=== PATIENT | male | born 1950 | race Caucasian/White ===

== ENCOUNTER 2019-06-17 15:35 | Inpatient (IN) | payer MEDICARE, SELFPAY ==
[2019-06-17] VITALS (20 sets, daily range): BP systolic 78–182; BP diastolic 59–122; PULSE 34–120; RESP 10–20; TEMP 36.6–37; O2SAT 95–100; BMI 22.4; BMI 24.7; BMI 24.6
[2019-06-17] MEDS: Morphine 4 MG/ML Syringe IV (15:44)
[2019-06-17] MEDS: TICAGRELOR 90 MG TABLET 180 MG PO (15:44)
[2019-06-17] MEDS: Heparin 10,000 UNITS/10 ML Vial 4000 UNITS IV (15:44)
[2019-06-17] MEDS: Ondansetron 4 MG/2 ML Vial IV (15:46)
--- NOTE | 2019-06-17 15:46 | RAD_ITS ---
STUDY: X-RAY CHEST REASON FOR EXAM: Male, 69 years old. Stemi TECHNIQUE: Single AP portable view of the chest. COMPARISON: None. FINDINGS: The lungs are clear and expanded. There is no demonstrated pleural abnormality. There is mild cardiac enlargement. Normal mediastinum and damian. Normal visualized pulmonary arteries. Normal visualized aortic arch and descending thoracic aorta. There are diffuse degenerative changes of the visualized thoracic spine. Normal visualized ribs, clavicles, and shoulders. There is no demonstrated abnormality of the visualized soft tissue structures of the upper abdomen. RAD/Chest 1 View (Portable) IMPRESSION: Degenerative changes, as described above. No demonstrated acute cardiopulmonary process. Electronically Signed: Trista Ozuna MD at 16:21 EDT Tel , Service support ,
--- NOTE | 2019-06-17 15:55 | ED.DCSUM_ITS ---
- ER Visit Summary Date of Service: 06/17/19 Chief Complaint: Chest pain History of Present Illness: The patient is a 69 M who presents with chest pain that began today after working out. Patient describes the pain is tightness over the substernal area. Patient admits to some nausea but denies any vomitin g. Patient admits to some shortness of breath and diaphoresis with the pain. Patient thought he was having esophageal spasm and called EMS. Patient has an allergic reaction to aspirin where he goes into shock. EMS did a twelve-lead EKG which showed a posterior infarct. Physical Examination: Vital signs were stable except for bradycardia of 45. Patient is afebrile. Patient is clammy and diaphoretic on examination. Heart was regular and bradycardic. Lungs are clear and equal bilaterally. Abdomen is soft and nontender. Cranial nerves II through XII are intact. There are no focal motor or sensory deficits noted. Oral mucosa is pink and moist. Neck is supple. Trachea is midline. There is no JVD. Test Results: EKG showed sinus bradycardia. There is ST depression in leads V1 through V5. There is tall R wave in V2. This is consistent with posterior infarct. Portable chest x-ray was obtained. There is no acute cardiopulmonary process. Emergency Department Course and Treatment: Case was discussed with Dr. Cr, commercial helicopter pilot on-call. He will begin to take patient to the Client Service Associate. Patient was given heparin 4000 units IV. Patient was given Brilinta 180 mg p.o. Patient was given morphine and Zofran here. Patient was not given aspirin due to his allergy. Dr. Lawton was also in with the patient and will accompany the patient to the Client Service Associate. She will admit the patient to her service. Disposition: Admit to Client Service Associate Impression: Acute STEMI This note was generated with [employer] dictation software. It may contain incorrect words, spelling, and punctuation that were not noted in review of the chart prior to signing ED Disposition - Plan for ED Patient: Disposition: Acute Care Hospital [facility] Diagnosis: Acute ST elevation myocardial infarction (STEMI) of posterior wall Referrals: Care Physician,No Primary [Primary Care Provider] -
--- NOTE | 2019-06-17 15:57 | EKG12_ITS ---
Test Reason : CP Blood Pressure : / mmHG Vent. Rate : 043 BPM Atrial Rate : 043 BPM P-R Int : 224 ms QRS Dur : 092 ms QT Int : 448 ms P-R-T Axes : 042 013 072 degrees QTc Int : 378 ms Marked sinus bradycardia with 1st degree A-V block Posterior infarct , possibly acute ACUTE [place] / STEMI Abnormal ECG Confirmed by NANCY CR ([id number]), video editor FELIX KENNEDY ([id number]) on 07/03/2019 2:30:12 PM Referred By: Nancy Cr Confirmed By:NANCY CR
--- NOTE | 2019-06-17 16:10 | CM.ED ---
Social Work Consult: Stemi Alert Met with patient ex-, Sharon in [place]. Sharon noted to be on patient chart. Sharon stating to still be friends with patient and to see each other regularly. Sharon stating to have 4 sons with patient. Support provided to Sharon while in the ED. This social media job titles then walking with Sharon to laborer aquatic life waiting room. Sharon stating to have gotten in contact with all needed family and that family is in route to the hospital at this time. Support provided. Yesica CONTI, CHRISTA
[2019-06-17 16:17] LABS: Absolute Lymphocyte Count 4.18 X10^3/uL (0.83-4.51); Absolute Neutrophil Count 5.2 X10^3/uL (2.0-7.7); Basophil# 0.08 X10^3/uL; Basophil% 0.7 % (0-1); Eosinophil# 0.45 X10^3/uL; Eosinophils% 4.2 % (0-5); Hematocrit 39.4 % (40-54); Hemoglobin 13.6 g/dL (13.0-16.5); Lymphocyte # 4.18 X10^3/ul (4.0); Lymphocyte % 38.9 % (19-41); Mean Corp Hgb Conc 34.5 g/dL (32-36); Mean Corpuscular Hgb 31.6 pg (27.0-32.0); Mean Corpuscular Volume 91.4 fL (80-94); Mean Platelet Vol. 9.1 fl (6.2-12.0); Monocyte# 0.78 X10^3/uL; Monocyte% 7.3 % (0-10); NRBC Flagged by Analyzer 0 % (0-5); Neutrophil # 5.22 X10^3/uL (2.7-7.7); Neutrophil % 48.5 % (47-70); Platelet Count 292 K/mm3 (150-450); RBC Distribution Width SD 40.3 fl (35.1-43.9); Red Blood Count 4.31 M/mm3 (4.6-6.2); White Blood Count 10.8 K/mm3 (4.4-11.0)
[2019-06-17 16:22] LABS: Partial Thromboplast Time 26.5 Seconds (24.1-36.2)
[2019-06-17 16:32] LABS: Anion Gap 8 (5-15); BUN 21 mg/dL (7-18); BUN/Creat Ratio 14.5 RATIO (10-20); Calcium,Total 9.6 mg/dL (8.5-10.1); Chloride 106 mmol/L (98-107); Creatinine, Serum 1.45 mg/dL (0.70-1.30); EST Glomerular Filtration Rate 52 mL/min (>60); Est Glom Filt Rate - Afr Amer 62 mL/min (>60); Estimated Creatinine Clearance 53.92 ml/min; Glucose 134 mg/dL (74-106); Potassium 3.5 mmol/L (3.5-5.1); Sodium Level 140 mmol/L (136-145)
--- NOTE | 2019-06-17 16:34 | PCM.HP.STD ---
Problem List (1) Asthma Status: Chronic (2) Anxiety and depression Status: Chronic (3) HTN (hypertension) Status: Chronic (4) HLD (hyperlipidemia) Status: Chronic (5) Former smoker, stopped smoking in distant past Status: Chronic Comment: quit 1998 (6) Family history of ASCVD Status: Chronic Comment: father had bypass surgery at 72 YOA (7) Chronic renal failure, stage 3 (moderate) Status: Chronic (8) Hyperglycemia Status: Acute (9) Erectile dysfunction Status: Chronic History of Present Illness Date of Admission: 06/17/19 Chief Complaint: chest tightness The patient is a 69 year old M with a past medical history of hypertension, hyperlipidemia (on no medication), asthma, anxiety/depression and former smoking hx who presented to the ED at [facility] on 06/17/19 by squad c/o anterior chest tightness, shortness of breath, lightheadedness, nausea and numbness in his left hand. He works out regularly and had no pain with his workout today but the pain started after his w/o. EKG done in the squad showed deep ST depression with T wave inversions in the anterior leads. Code STEMI was called and he was given 180 mg of Brilinta and 4,000 units of intravenous heparin. Initial vital signs in the emergency department were blood pressure 126/86, respiratory rate 14, 100% saturation on a nasal cannula and a pulse rate of 45. A repeat EKG showed bradycardia with persistent ST depression and T wave inversions in the anterior leads. The HR dropped to the low 30's and the BP dropped to 70's systolic. Fluid boluses were started in 2 IV's and the external PM was applied and the rate was set at 50 with good capture. He received 4 mg of MS and nausea worsened and he received a total of 8 mg of Zofran. In the past he has had a anaphylactic reaction to Motrin and was told never to take aspirin. BP came up into the normal range with pacing and fluid boluses. He was transported to the labor crew supervisor and Dr. Cr will be performing a cardiac cath. Past Medical History Past Medical History (Chronic Problems): Chronic Problems Asthma (Chronic) Anxiety and depression (Chronic) HTN (hypertension) (Chronic) HLD (hyperlipidemia) (Chronic) Former smoker, stopped smoking in distant past (Chronic) quit 1998 Family history of ASCVD (Chronic) father had bypass surgery at 72 YOA Chronic renal failure, stage 3 (moderate) (Chronic) Erectile dysfunction (Chronic) Allergies aspirin Allergy (Verified 06/17/19 15:43) Anaphylaxis Sulfa (Sulfonamide Antibiotics) Allergy (Verified 06/17/19 15:43) Rash Surgical History: no surgical history Psychiatric History: Anxiety, Depression Lives: Alone Smoking Status: Former smoker - quit in 1998 Tobacco Use: Non-smoker Alcohol: Rare Drugs: None - *Family History Paternal History Items: Heart Disease - father had bypass surgery at 72 YOA, Hypertension Maternal History Items: Hypertension, - - mother has had carotid bypass surgery Review of Systems Constitutional: Denies: Chills, Fever, Weight Change HEENT: Denies: Head Aches, Sinus Congestion, Sinus Drainage Cardiovascular: Reports: Chest Pain, Chest Tightness, Light Headedness. Denies: Palpitations, Syncope Respiratory: Reports: Shortness of Breath, Shortness of breath upon exertion. Denies: Cough, Shortness of breath at rest, Sputum production Gastrointestinal: Reports: Nausea. Denies: Abdominal Pain, Vomiting Genitourinary: Denies: Dysuria Musculoskeletal: Reports: - - numbness in the left hand. Denies: Joint Pain, Joint Tenderness Skin: Denies: Rash, Wounds Neurological: Denies: Numbness, Tingling, Focal weakness Psychiatric: Denies: Anxiety, Depression, Homicidal Ideations, Suicidal Ideations Endocrine: Denies: Change in Body Habitus Hematologic/ Lymphatic: Denies: Easy Bruising, Easy Bleeding, Hx of blood clot VTE Information - Inpt Only VTE Present on Admission: No VTE Mechan Device Prophylaxis: SCD's, Knee High LIZ Hose VTE Pharm Prophylaxis ordered?: No Patient Problems: Active and Suspected Problems Acute ST elevation myocardial infarction (STEMI) of posterior wall (Acute) Hyperglycemia (Acute) - Physical Exam General: Alert, Oriented x3, Cooperative, - - looks to be in severe pain and the color of the skin is grayish HEENT: Atraumatic, PERRLA, EOMI, Normocephalic Neck: Supple, No JVD, Negative Carotid Bruits, No Nodes, No Nuchal Rigidity, Trachea Midline Lungs: Clear to auscultation - anterior and lateral, Normal air movement Cardiovascular: Normal S1, Normal S2, No murmurs, Bradycardic, No rub noted, No Gallop, - - some junctional beats and occasional PAC Abdomen: Bowel Sounds Present, Soft, Non Tender Extremities: No clubbing, No cyanosis, No edema, Diminished Peripheral Pulses - in the feet...and the feet are a little cool. The femoral pulses are 3/3 BL with no bruits and the radial pulses are 3/3 Skin: No rashes, No breakdown Musculoskeletal: No Tenderness to Palpation of Joints or Extremities, No Muscle Wasting Neurological: Cranial nerves II-XII grossly intact, Neuro grossly intact Psych/Mental Status: Appropriate, Restless - in pain and afraid Vital Signs Temp Pulse Resp BP Pulse Ox 98 F 45 L 14 111/73 100 06/17/19 15:46 06/17/19 15:46 06/17/19 15:46 06/17/19 15:46 06/17/19 15:46 Weight: 170 lb Body Mass Index (BMI) 22.4 Laboratory Tests Past 24 Hrs 06/17/19 06/17/19 06/17/19 15:40 15:40 15:40 WBC 10.8 RBC 4.31 L Hgb 13.6 Hct 39.4 L MCV 91.4 MCH 31.6 MCHC 34.5 RDW Std Deviation 40.3 RDW Coeff of Larry 12.0 Plt Count 292 MPV 9.1 Immature Gran % (Auto) 0.400 Neut % (Auto) 48.5 Lymph % (Auto) 38.9 [place] % (Auto) 7.3 Eos % (Auto) 4.2 Baso % (Auto) 0.7 Absolute Neuts (auto) 5.2 Absolute Lymphs (auto) 4.18 Nucleated RBC % 0 PT 13.0 INR 1.0 APTT 26.5 Sodium 140 Potassium 3.5 Chloride 106 Carbon Dioxide 26.0 Anion Gap 8 BUN 21 H Creatinine 1.45 H Estim Creat Clear Calc 53.92 Est GFR (MDRD) Af Amer 62 Est GFR (MDRD) Non-Af 52 L BUN/Creatinine Ratio 14.5 Glucose 134 H Calcium 9.6 Troponin I < 0.015 Assessment/Plan All Active Problems Acute ST elevation myocardial infarction (STEMI) of posterior wall (Acute) Hyperglycemia (Acute) Impressions 1. STEMI - posterior wall 2. Hypertension-on losartan 3. Hyperlipidemia-has been on pravastatin in November 2018 but apparently this was discontinued 4. Asthma 5. Anxiety/depression 6. Erectile dysfunction-takes sialoliths as needed 7. Family history of cardiovascular disease with bypass surgery in his father at age 72 and carotid bypass surgery in his mother 8. Chronic renal failure stage III - Creat 1.4 in 2017 and 1.45 today 9. Hyperglycemia - no personal or FH of DM II - more likely than not stress related Taken for cath with Dr. Cr Code Visit Inpatient E&M: 45814 Init Hosp L3
--- NOTE | 2019-06-17 17:04 | ED.RN ---
While in ED pt was paced at a rate of 50 with a current of 40. Pt tolerated well.
--- NOTE | 2019-06-17 17:41 | ECHOD_ITS ---
Reason For Study: CAD/ASHD Procedure This was a 2D Doppler, Color Flow transthoracic echocardiogram. Exam performed portable in ICU/CCU. Left Ventricle Normal size and thickness. The estimated ejection fraction is 55 %. Stage 1 diastolic dysfunction. Inferior Dawes : Mildly hypokinetic. Right Ventricle Mildly dilated right ventricle. Normal systolic function. Atria Normal left atrium. Normal right atrium. Normal atrial septum. Mitral Valve The mitral valve is structurally normal. No prolapse or stenosis seen. Tricuspid Valve Normal tricuspid valve. Unable to estimate RV systolic pressure due to inadequate jet, pulmonary artery pressure probably normal. Aortic Valve Normal aortic valve. Trisinus/trileaflet aortic valve. Pulmonic Valve Normal pulmonic valve. Great Vessels Normal aortic root. Normal arch. Normal inferior vena cava. Inferior vena cava collapse with sniff. Pericardium/Pleural No pericardial effusion. MMode/2D Measurements & Calculations LVIDd: 5.0 cm IVSd: 0.91 cm LAV(MOD-bp): 66.3 ml LVIDs: 3.3 cm LVPWd: 1.0 cm LAV(MOD-bp) Indexed: 32.7 ml/m2 RVDd: 3.8 cm FS: 33.6 % LAV(MOD-sp2): 61.1 ml LAV(MOD-sp4): 63.9 ml SV(MOD-sp4): 57.9 ml SV(sp4-el): 61.2 ml LVAd ap4: 33.1 cm2 EDV(MOD-sp4): 96.0 ml EDV(sp4-el): 100.1 ml LVAs ap4: 18.2 cm2 ESV(MOD-sp4): 38.1 ml ESV(sp4-el): 38.9 ml EF(MOD-sp4): 60.4 % EF(sp4-el): 61.2 % LA A4 area: 18.7 cm2 RA A4 area: 14.6 cm2 Time Measurements MV dec time: 0.26 sec Doppler Measurements & Calculations MV E max ronal: 80.0 cm/sec Lat Peak E' Ronal: 9.6 cm/sec Med Peak E' Ronal: 8.6 cm/sec MV A max ronal: 82.3 cm/sec E/E' lat: 8.4 E/E' med: 9.3 MV E/A: 0.97 MV V2 max: 102.1 cm/sec MV P1/2t max ronal: 93.4 cm/sec Ao V2 max: 126.2 cm/sec MV max P.2 mmHg MV P1/2t: 77.9 msec Ao max P.4 mmHg MV V2 mean: 54.6 cm/sec MV dec slope: 351.3 cm/sec2 Ao V2 mean: 78.3 cm/sec MV mean P.4 mmHg MVA(P1/2t): 2.8 cm2 Ao mean P.9 mmHg MV V2 VTI: 30.9 cm Ao V2 VTI: 22.0 cm LV V1 max: 108.0 cm/sec PA V2 max: 66.3 cm/sec LV V1 max P.7 mmHg LV V1 mean P.0 mmHg LV V1 mean: 64.0 cm/sec LV V1 VTI: 21.5 cm Interpretation Summary The estimated ejection fraction is 55 %. Stage 1 diastolic dysfunction. Inferior Dawes : Mildly hypokinetic Unable to estimate RV systolic pressure due to inadequate jet, pulmonary artery pressure probably normal. There is no comparison study available. Ordering Physician: Karri Cr Referring Physician: TRAV ANTHONY Performed By: Jesus Christianson RCS
[2019-06-17 17:55] LABS: ACT Activated Clotting Time 153 sec (74-137)
[2019-06-17 17:55] LABS: ACT Activated Clotting Time 197 sec (74-137)
[2019-06-17] MEDS: 0.9% Normal Saline 1,000 ML 150 ML IV (18:00)
[2019-06-17] MEDS: fentaNYL 100 MCG/2 ML Ampul 25 MCG IV ×2 (18:00→20:57)
[2019-06-17 18:49] LABS: Cholesterol 243 mg/dL (200); High Density Lipoprotein 38 mg/dL; Triglycerides 106 mg/dL; Very Low Density Lipoprotein 21 mg/dL (5-40)
[2019-06-17] MEDS: Nitroglycerin (INPATIENT USE) 0.4 MG TAB.SUBL SUBLINGUAL (18:57)
[2019-06-17] MEDS: Carvedilol 3.125 MG TABLET PO (18:59)
[2019-06-17] MEDS: Losartan Potassium 25 MG Tablet 12.5 MG PO (19:00)
[2019-06-17] MEDS: Potassium Chloride 10mEq/100mL 10 MEQ/100 ML IV.SOLN. 100 MEQ IV BOLUS ×4 (19:04→22:02)
[2019-06-17 20:25] LABS: ACT Activated Clotting Time 147 sec (74-137)
[2019-06-17] MEDS: 0.9% NaCl Peripheral Flush Adult/Peds IV (21:00)
[2019-06-17] MEDS: TICAGRELOR 90 MG TABLET PO (22:15)
[2019-06-18] VITALS (31 sets, daily range): BP systolic 96–157; BP diastolic 42–127; PULSE 48–79; RESP 10–22; TEMP 36.3–37; O2SAT 95–100
[2019-06-18] MEDS: LORazepam 1 MG Tablet PO ×2 (00:51→20:48)
[2019-06-18 05:48] LABS: AST(SGOT) 75 U/L (15-37); Alanine Aminotransfer ALT/SGPT 23 U/L (16-61); Albumin, Serum 2.9 g/dL (3.2-5.0); Alkaline Phosphatase 55 U/L (45-117); Anion Gap 7 (5-15); BUN 16 mg/dL (7-18); BUN/Creat Ratio 16.2 RATIO (10-20); Calcium,Total 7.3 mg/dL (8.5-10.1); Chloride 113 mmol/L (98-107); Creatinine, Serum 0.99 mg/dL (0.70-1.30); EST Glomerular Filtration Rate 80 mL/min (>60); Est Glom Filt Rate - Afr Amer 97 mL/min (>60); Estimated Creatinine Clearance 84.18 ml/min; Glucose 72 mg/dL (74-106); Potassium 3.7 mmol/L (3.5-5.1); Protein, Total 5.9 g/dL (6.4-8.2); Sodium Level 143 mmol/L (136-145)
[2019-06-18 06:22] LABS: Absolute Lymphocyte Count 1.93 X10^3/uL (0.83-4.51); Absolute Neutrophil Count 6.8 X10^3/uL (2.0-7.7); Basophil# 0.07 X10^3/uL; Basophil% 0.7 % (0-1); Eosinophil# 0.26 X10^3/uL; Eosinophils% 2.6 % (0-5); Hematocrit 38.3 % (40-54); Hemoglobin 13.1 g/dL (13.0-16.5); Lymphocyte # 1.93 X10^3/ul (4.0); Lymphocyte % 19.3 % (19-41); Mean Corp Hgb Conc 34.2 g/dL (32-36); Mean Corpuscular Hgb 31.5 pg (27.0-32.0); Mean Corpuscular Volume 92.1 fL (80-94); Mean Platelet Vol. 9.2 fl (6.2-12.0); Monocyte# 0.93 X10^3/uL; Monocyte% 9.3 % (0-10); NRBC Flagged by Analyzer 0 % (0-5); Neutrophil # 6.75 X10^3/uL (2.7-7.7); Neutrophil % 67.6 % (47-70); Platelet Count 194 K/mm3 (150-450); RBC Distribution Width CV 12.3 % (11.6-14.6); RBC Distribution Width SD 41.6 fl (35.1-43.9); Red Blood Count 4.16 M/mm3 (4.6-6.2)
--- NOTE | 2019-06-18 09:01 | PCM.PN.CARD ---
Subjectve: Patient feeling much better today, no further chest pain. Right groin is clean/dry/intact, without evidence of thrills, bruits or hematoma. EKG shows normal sinus rhythm with resolution of anterior ST and T wave changes with generous R wave progression which may indicate resolving posterior myocardial infarction. Peak troponin is 27 thus far. Telemetry is shown reversion from atrial fibrillation to normal sinus rhythm with ventricular ectopy as well as several episodes of nonsustained ventricular tachycardia from 5-13 beats. Patient had no reaction to baby aspirin yesterday. Hemoglobin and creatinine are within nominal limits. Objective: Vital Signs Temp Pulse Resp BP Pulse Ox 98.1 F 54 L 19 H 96/47 L 96 06/18/19 08:00 06/18/19 08:00 06/18/19 08:00 06/18/19 08:00 06/18/19 08:00 Oxygen Flow Rate (L/min) 2 Oxygen Delivery Method Room Air Weight: 192 lb 14.472 oz Body Mass Index (BMI) 24.6 Intake and Output for Last 24 Hours 06/16/19 06/17/19 06/18/19 23:59 23:59 23:59 Intake Total 1350 / 1350 Output Total 175 / 1025 850 / 850 Balance -175 / 175 500 / 500 General: Awake, Alert, Oriented x 3 HEENT: PERRL, EOMI, Sclera Non Icteric Neck: Supple, Good ROM, No Lymph Node Enlargement Lungs: Clear to auscultation Cardiovascular: Regular Rhythm, Normal S1, Normal S2, No Murmurs, No Rubs, No Gallops Vascular: No Carotid Bruits, Normal Femoral Pulses, Normal Radial Pulses, Normal Dorsalis Pedal Pulse, Normal Posterior Tibial Pulses Abdomen: Bowel Sounds Present, Soft, Non Tender, No HSM, No Organomegaly Extremities: No Cyanosis, No Clubbing, No edema Neurological: No Focal Motor or Sensory Deficit 06/17/19 15:40: WBC 10.8, RBC 4.31 L, Hgb 13.6, Hct 39.4 L, MCV 91.4, MCH 31.6, MCHC 34.5, Plt Count 292, MPV 9.1, Immature Gran % (Auto) 0.400, Neut % (Auto) 48.5, Lymph % (Auto) 38.9, [place] % (Auto) 7.3, Eos % (Auto) 4.2, Baso % (Auto) 0.7, Absolute Neuts (auto) 5.2, Nucleated RBC % 0 06/17/19 15:40: PT 13.0, INR 1.0, APTT 26.5 06/17/19 15:40: Sodium 140, Potassium 3.5, Chloride 106, Carbon Dioxide 26.0, Anion Gap 8, BUN 21 H, Creatinine 1.45 H, Est GFR (MDRD) Af Amer 62, Est GFR (MDRD) Non-Af 52 L, BUN/Creatinine Ratio 14.5, Glucose 134 H, Calcium 9.6, Troponin I < 0.015 06/17/19 18:00: Troponin I 1.120 H*, Triglycerides 106, Cholesterol 243 H, LDL Cholesterol 184 H, VLDL Cholesterol 21, HDL Cholesterol 38 L 06/17/19 23:10: Troponin I 20.600 H* 06/18/19 02:25: Troponin I 27.500 H* 06/18/19 04:45: WBC Cancelled, Corrected WBC Cancelled, RBC Cancelled, Hgb Cancelled, Hct Cancelled, MCV Cancelled, MCH Cancelled, MCHC Cancelled, Plt Count Cancelled, MPV Cancelled, Immature Gran % (Auto) Cancelled, Neut % (Auto) Cancelled, Lymph % (Auto) Cancelled, [place] % (Auto) Cancelled, Eos % (Auto) Cancelled, Baso % (Auto) Cancelled, Absolute Neuts (auto) Cancelled, Total Counted Cancelled, Neutrophils % (Manual) Cancelled, Band Neutrophils % Cancelled, Lymphocytes % (Manual) Cancelled, Monocytes % (Manual) Cancelled, Eosinophils % (Manual) Cancelled, Basophils % (Manual) Cancelled, Metamyelocytes % Cancelled, Myelocytes % Cancelled, Promyelocytes % Cancelled, Blast Cells % Cancelled, Plasma Cell % (Manual) Cancelled, Other Cells % Cancelled, Nucleated RBC % Cancelled 06/18/19 04:45: Sodium 143, Potassium 3.7, Chloride 113 H, Carbon Dioxide 23.0, Anion Gap 7, BUN 16, Creatinine 0.99, Est GFR (MDRD) Af Amer 97, Est GFR (MDRD) Non-Af 80, BUN/Creatinine Ratio 16.2, Glucose 72 L, Calcium 7.3 L, Total Bilirubin 0.30 06/18/19 06:00: WBC 10.0, RBC 4.16 L, Hgb 13.1, Hct 38.3 L, MCV 92.1, MCH 31.5, MCHC 34.2, Plt Count 194, MPV 9.2, Immature Gran % (Auto) 0.500, Neut % (Auto) 67.6, Lymph % (Auto) 19.3, [place] % (Auto) 9.3, Eos % (Auto) 2.6, Baso % (Auto) 0.7, Absolute Neuts (auto) 6.8, Nucleated RBC % 0 Rhythm: As above EKG: As above ECHO: Pending Stress Test: Cardiac Cath: PCI: CT Surgery: Holter monitor: EPS: PPM: CXR: Chest CT Scan: Medical Necessity - Tobacco Use Smoking Status: Former smoker Tobacco Use: Non-smoker Assessment/Plan 1. Coronary artery disease: The patient presented with acute inferior posterior wall myocardial infarction underwent successful emergent left heart catheterization and coronary angioplasty receiving a drug-eluting stent to his obtuse marginal in the form of a 2.5X 38 Promus Synergy stent, postdilated to 3.0 mm. In addition he underwent angioplasty and stenting to the proximal left circumflex receiving a 3.0X 20 Promus, postdilated 3.5 and 4.0 mm. Patient has reverted from atrial fibrillation back to normal sinus rhythm and has had several episodes of ventricular ectopy in the form of nonsustained ventricular tachycardia between 5 and 13 beats. Recommend the patient continue baby aspirin as it appears that he is able to tolerate this and does not have a true allergy to aspirin itself but rather to ibuprofen. If this changes, we can just continue Brilinta twice daily. Recommended continuing Coreg, losartan as well. We will obtain a 2D echo with Doppler tomorrow to get a baseline evaluation of his LV function as it stands today. He will then have a repeat echocardiogram at the conclusion of cardiac rehab and after his revascularization of his LAD. Patient return in 3 weeks time to have elective PCI of his proximal mid LAD. I would not recommend stress testing given his recent myocardial infarction, as well as given the significant stenosis of his proximal mid LAD. 2. Hyperlipidemia: The patient has profound hyperlipidemia as well as a positive family history. His LDL is 184. He did not tolerate statins due to myalgias in the past. Recommend starting him on gemfibrozil 600 mg p.o. twice daily as well as Zetia 10 mg p.o. nightly. Repeat lipid profile in 6 weeks time. 3. Peripheral vascular disease: The patient has requested carotid evaluation given the positive carotid stenosis in both of his adult appearance. We will obtain carotid ultrasound tomorrow. 4. Atrial fibrillation: The patient developed transient atrial fibrillation during his acute myocardial infarction. He did require a low dose of IV atropine which triggered the atrial fibrillation. He is reverted back to normal sinus rhythm. We will continue Coreg therapy. Do not believe he requires antiarrhythmic therapy at this time. Would hold off on anticoagulation as well given his reversion back to normal sinus rhythm as well as the need for elective angioplasty in 3 to 4 weeks time. 5. Thank you very much for the opportunity to participate in the cardiac care of your patient. Recommend keeping the patient in ICU 1 more day as it is not been 24 hours since his myocardial infarction and the patient has had several episodes of ventricular ectopy including nonsustained ventricular tachycardia. Code Visit Inpatient E&M: 26604 Subs Hosp L2
--- NOTE | 2019-06-18 09:07 | CDU_ITS ---
Reason For Study: Vertigo Rt. Velocities/BP Lt. Velocities/BP Prox CCA 115.1/21.3. cm/sec. Prox CCA 98.2/23.9 cm/sec. Mid CCA 113.9/21.3 cm/sec. Mid CCA 93/21.2 cm/sec. Dist CCA 86.5/18.6 cm/sec. Dist CCA 93/16 cm/sec. Prox ICA 82.6/22.6 cm/sec. Prox ICA 68.2/21.2 cm/sec. Mid ICA 94.3/26.5 cm/sec. Mid ICA 61.7/16 cm/sec. Dist ICA 74.7/22.6 cm/sec. Dist ICA 79.9/27.8 cm/sec. Rt. ICA/CCA = 0.83. Lt. ICA/CCA = 0.86. Prox ECA 115.2/10.8 cm/sec. Prox ECA 87.7/5.6 cm/sec. Rt. Vert. 70.8/22.6 cm/sec. Lt. Vert. 23.7/8.8 cm/sec. Right Extracranial There is homogeneous, smooth atherosclerotic plaque noted in the right common carotid artery. There is heterogeneous, irregular atherosclerotic plaque noted in the right internal carotid artery. There is intimal thickening but no significant atherosclerotic plaque noted in the right external carotid artery. Antegrade flow is noted in the right vertebral artery. Left Extracranial There is homogeneous, smooth atherosclerotic plaque noted in the left common carotid artery. There is heterogeneous, irregular atherosclerotic plaque noted in the left internal carotid artery. There is homogeneous, smooth atherosclerotic plaque noted in the left external carotid artery. Antegrade flow is noted in the left vertebral artery. Procedure Carotid Duplex 23756. Exam performed in department. Interpretation Summary Irregular calcific plague distal right common carotid and proximal internal carotid <50% stenosis right internal carotid <50% stenosis right external carotid Calcific irregular plague at the distal left common carotid and proximal internal carotid <50% stenosis left internal carotid <50% stenosis left external carotid Patent and antegrade bilateral vertebrals with diminished velocity on the left. Ordering Physician: Karri Cr Referring Physician: Dary Alvarez Performed By: Muriel Back RVT
[2019-06-18] MEDS: Aspirin E.C. 81 MG Tablet PO (09:10)
[2019-06-18] MEDS: Losartan Potassium 25 MG Tablet 12.5 MG PO (09:10)
[2019-06-18] MEDS: Carvedilol 3.125 MG TABLET PO (09:10)
[2019-06-18] MEDS: TICAGRELOR 90 MG TABLET PO ×2 (09:10→20:48)
[2019-06-18] MEDS: Gemfibrozil 600 MG Tablet PO ×2 (09:10→16:02)
--- NOTE | 2019-06-18 09:11 | PN_ITS ---
Patient Problems: Active and Suspected Problems Acute ST elevation myocardial infarction (STEMI) of posterior wall (Acute) Hyperglycemia (Acute) Subjective: Patient was seen and examined. He was admitted yesterday with chest pain and underwent emergent cardiac cath. Findings were consistent with acute inferior posterior wall MD. He is status post NAILA to his obtuse marginal, proximal left circumflex. Overnight, patient had episodes of non-sustained V. tach. He also had transient atrial fibrillation, currently is in sinus bradycardia on telemetry At the time of being examined, patient is mild substernal chest discomfort less than 3 out of 10. Denied any dizziness or palpitations. Rest of ROS is negative. Vitals/I&O's: Vital Signs Temp Pulse Resp BP Pulse Ox 98.1 F 54 L 19 H 96/47 L 96 06/18/19 08:00 06/18/19 08:00 06/18/19 08:00 06/18/19 08:00 06/18/19 08:00 Oxygen Flow Rate (L/min) 2 Oxygen Delivery Method Room Air Weight: 87.5 kg Body Mass Index (BMI) 24.6 Intake and Output for Last 24 Hours 06/16/19 06/17/19 06/18/19 23:59 23:59 23:59 Intake Total 1350 / 1350 Output Total 175 / 1025 850 / 850 Balance -175 / 175 500 / 500 General: Alert, Oriented x3, Cooperative, No apparent distress HEENT: Atraumatic, PERRLA, EOMI, Normocephalic Oral: Moist Mucosa Neck: Supple Lungs: Clear to auscultation, Normal air movement Cardiovascular: Regular rate, Regular Rhythm, Normal S1, Normal S2, No murmurs Abdomen: Bowel Sounds Present, Soft, Non Tender, Non-Distended, No Hepato- splenomegaly Extremities: No edema Skin: No rashes, No breakdown Musculoskeletal: No Tenderness to Palpation of Joints or Extremities Lymphatic: No Cervical, Supraclavicular, or Inguinal Adenopathy Neurological: Cranial nerves II-XII grossly intact, Neuro grossly intact Psych/Mental Status: Normal Affect, Appropriate Laboratory Results 06/17/19 15:40: WBC 10.8, RBC 4.31 L, Hgb 13.6, Hct 39.4 L, MCV 91.4, MCH 31.6, MCHC 34.5, RDW Std Deviation 40.3, RDW Coeff of Larry 12.0, Plt Count 292, MPV 9.1, Immature Gran % (Auto) 0.400, Neut % (Auto) 48.5, Lymph % (Auto) 38.9, [place] % (Auto) 7.3, Eos % (Auto) 4.2, Baso % (Auto) 0.7, Absolute Neuts (auto) 5.2, Absolute Lymphs (auto) 4.18, Nucleated RBC % 0 06/17/19 15:40: PT 13.0, INR 1.0, APTT 26.5 06/17/19 15:40: Sodium 140, Potassium 3.5, Chloride 106, Carbon Dioxide 26.0, Anion Gap 8, BUN 21 H, Creatinine 1.45 H, Estim Creat Clear Calc 53.92, Est GFR (MDRD) Af Amer 62, Est GFR (MDRD) Non-Af 52 L, BUN/Creatinine Ratio 14.5, Glucose 134 H, Calcium 9.6, Troponin I < 0.015 06/17/19 16:26: Activated Clotting Time 153 H 06/17/19 17:17: Activated Clotting Time 197 H 06/17/19 18:00: Troponin I 1.120 H*, Triglycerides 106, Cholesterol 243 H, LDL Cholesterol 184 H, VLDL Cholesterol 21, HDL Cholesterol 38 L 06/17/19 20:13: Activated Clotting Time 147 H 06/17/19 23:10: Troponin I 20.600 H* 06/18/19 02:25: Troponin I 27.500 H* 06/18/19 04:45: WBC Cancelled, Corrected WBC Cancelled, RBC Cancelled, Hgb Cancelled, Hct Cancelled, MCV Cancelled, MCH Cancelled, MCHC Cancelled, RDW Std Deviation Cancelled, RDW Coeff of Larry Cancelled, Plt Count Cancelled, MPV Cancelled, Immature Gran % (Auto) Cancelled, Neut % (Auto) Cancelled, Lymph % (Auto) Cancelled, [place] % (Auto) Cancelled, Eos % (Auto) Cancelled, Baso % (Auto) Cancelled, Absolute Neuts (auto) Cancelled, Absolute Lymphs (auto) Cancelled, Total Counted Cancelled, Neutrophils % (Manual) Cancelled, Band Neutrophils % Cancelled, Lymphocytes % (Manual) Cancelled, Monocytes % (Manual) Cancelled, Eosinophils % (Manual) Cancelled, Basophils % (Manual) Cancelled, Metamyelocytes % Cancelled, Myelocytes % Cancelled, Promyelocytes % Cancelled, Blast Cells % Cancelled, Plasma Cell % (Manual) Cancelled, Other Cells % Cancelled, Nucleated RBC % Cancelled, Nucleated RBCs/100 WBC Cancelled, Differential Comment Cancelled, Diff Path Review Cancelled, Hypersegmented Neuts Cancelled, Atypical Lymphocytes Cancelled, Reactive Lymphocytes Cancelled, Smudge Cells Cancelled, Toxic Granulation Cancelled, Toxic Vacuolation Cancelled, Dohle Bodies Cancelled, Jaz Rods Cancelled, Platelet Estimate Cancelled, Plt Morphology Comment Cancelled, RBC Morphology Cancelled, Polychromasia Cancelled, Hypochromasia Cancelled, Poikilocytosis Cancelled, Basophilic Stippling Cancelled, Anisocytosis Cancelled, Microcytosis Cancelled, Macrocytosis Cancelled, Spherocytes Cancelled, Sickle Cells Cancelled, Target Cells Cance lled, Tear Drop Cells Cancelled, Ovalocytes Cancelled, Stomatocytes Cancelled, [place] Bodies Cancelled, [place] Cells Cancelled, Bite Cells Cancelled, Crenated Cell Cancelled, Acanthocytes (Spur) Cancelled, Rouleaux Cancelled, Schistocytes Cancelled 06/18/19 04:45: Sodium 143, Potassium 3.7, Chloride 113 H, Carbon Dioxide 23.0, Anion Gap 7, BUN 16, Creatinine 0.99, Estim Creat Clear Calc 84.18, Est GFR (MDRD) Af Amer 97, Est GFR (MDRD) Non-Af 80, BUN/Creatinine Ratio 16.2, Glucose 72 L, Calcium 7.3 L, Total Bilirubin 0.30, AST 75 H, ALT 23, Alkaline Phosphatase 55, Total Protein 5.9 L, Albumin 2.9 L, Globulin 3.0, Albumin/Globulin Ratio 1.0 06/18/19 06:00: WBC 10.0, RBC 4.16 L, Hgb 13.1, Hct 38.3 L, MCV 92.1, MCH 31.5, MCHC 34.2, RDW Std Deviation 41.6, RDW Coeff of Larry 12.3, Plt Count 194, MPV 9.2, Immature Gran % (Auto) 0.500, Neut % (Auto) 67.6, Lymph % (Auto) 19.3, [place] % (Auto) 9.3, Eos % (Auto) 2.6, Baso % (Auto) 0.7, Absolute Neuts (auto) 6.8, Absolute Lymphs (auto) 1.93, Nucleated RBC % 0 Current Medications Acetaminophen (Tylenol) 650 mg PO Q6H PRN PRN PRN Reason: Mild Pain (0-2/10) Aspirin (Ecotrin) 81 mg PO DAILY@0800 [facility] Last Admin: 06/18/19 09:10 Dose: 81 mg Documented by: Atropine Sulfate () 0.5 mg IV UD PRN PRN Reason: HR <50 bpm Carvedilol (Coreg) 3.125 mg PO BID [facility] Last Admin: 06/18/19 09:10 Dose: 3.125 mg Documented by: Ezetimibe (Zetia) 10 mg PO DAILY [facility] Fentanyl Citrate (Sublimaze (100mcg Ampule)) 25 mcg IV Q2H PRN PRN PRN Reason: pain Last Admin: 06/17/19 20:57 Dose: 25 mcg Documented by: Gemfibrozil (Lopid) 600 mg PO BIDAC [facility] Last Admin: 06/18/19 09:10 Dose: 600 mg Documented by: Heparin Sodium (Beef Lung) (Heparin 500 Unit/5 Ml (100/Ml)) 500 unit IV UD PRN PRN Reason: HEPARIN FLUSH Nitroglycerin/Dextrose () 250 mls @ 3 mls/hr CONT INF .[id number] [facility] Last Admin: 06/17/19 22:10 Dose: Not Given Documented by: Sodium Chloride () 250 mls @ 15 mls/hr IV .[id number] PRN PRN Reason: SALINE FLUSH Sodium Chloride () 500 mls @ 15 mls/hr IV .[id number] PRN PRN Reason: SALINE FLUSH Labetalol HCl (Trandate) 5 mg IV X1 PRN PRN Reason: SBP > 160 when pulling sheath Lorazepam (Ativan) 1 mg PO Q6H PRN PRN PRN Reason: BACK SPASMS/ANXIETY Last Admin: 06/18/19 00:51 Dose: 1 mg Documented by: Losartan Potassium (Cozaar) 12.5 mg PO DAILY [facility] Last Admin: 06/18/19 09:10 Dose: 12.5 mg Documented by: Metoclopramide HCl (Reglan) 5 mg IV Q6H PRN PRN Reason: NAUSEA/VOMITING Nitroglycerin (Nitrostat) 0.4 mg SUBLINGUAL Q5M PRN PRN Reason: CARDIAC/CHEST PAIN Last Admin: 06/17/19 18:57 Dose: 0.4 mg Documented by: Sodium Chloride () 500 ml IV BOLUS PRN PRN Reason: VASO-VAGAL PROTOCOL Sodium Chloride () 10 - 40 ml IV UD PRN PRN Reason: SALINE FLUSH Last Admin: 06/17/19 21:00 Dose: 40 ml Documented by: Ticagrelor (Brilinta) 90 mg PO BID [facility] Last Admin: 06/18/19 09:10 Dose: 90 mg Documented by: Medical Necessity - Tobacco Use Smoking Status: Former smoker Tobacco Use: Non-smoker Assessment/Plan All Active Problems Acute ST elevation myocardial infarction (STEMI) of posterior wall (Acute) Hyperglycemia (Acute) 69-year-old male with past medical history of hypertension, hyperlipidemia , positive family history of MD in his father who was admitted with acute onset of substernal chest pain whilst working out. This was associated with nausea, diaphoresis and shortness of breath. Initial EKG showed ST segment depression in lead I and aVL as well as V1 to V5 with a tall R wave in V2 consistent with posterior infarct. 1. Acute STEMI, DANIELA score of 3, s/p emergent cath, s/p 2 NAILA to obtuse marginal and proximal left circumflex On aspirin, carvedilol, Losartan, Brilinta, prn nitro, 2d-echo is pending PCI of proximal mid LAD planned for possibly 3-4 weeks. 2. Arrhythmia, noted post-cardiac intervention; NSVT, asymptomatic, in NSR now, slightly bradycardic, Will check serum magnesium 3. Hypertension, controlled, continue on Losartan and Coreg 4. Hyperlipidemia, uncontrolled, on statin 5. DVT PPx- Heparin SC from tomorrow; encourage early ambulation Code Visit Inpatient E&M: 20458 Subs Hosp L2
[2019-06-18 09:28] LABS: Magnesium 1.9 mg/dL (1.6-2.6)
[2019-06-18] MEDS: Acetaminophen 325 MG Tablet 650 MG PO ×2 (10:55→17:40)
[2019-06-18] MEDS: 0.9% NaCl Peripheral Flush Adult/Peds IV (11:20)
[2019-06-18] MEDS: fentaNYL 100 MCG/2 ML Ampul 25 MCG IV (11:20)
[2019-06-18] MEDS: Ondansetron 4 MG/2 ML Vial IV (11:53)
[2019-06-18] MEDS: Ezetimibe 10 MG Tablet PO (20:48)
[2019-06-19] VITALS (18 sets, daily range): BP systolic 96–133; BP diastolic 38–90; PULSE 56–76; RESP 12–26; TEMP 36.6–36.9; O2SAT 94–98; BMI 22.4
[2019-06-19 04:07] LABS: Hematocrit 35.7 % (40-54); Hemoglobin 12.4 g/dL (13.0-16.5); Mean Corp Hgb Conc 34.7 g/dL (32-36); Mean Corpuscular Hgb 32.2 pg (27.0-32.0); Mean Corpuscular Volume 92.7 fL (80-94); Mean Platelet Vol. 9.3 fl (6.2-12.0); Platelet Count 206 K/mm3 (150-450); RBC Distribution Width CV 12.2 % (11.6-14.6); RBC Distribution Width SD 41.6 fl (35.1-43.9); Red Blood Count 3.85 M/mm3 (4.6-6.2)
[2019-06-19 04:23] LABS: ALB/GLOB Ratio 0.9 RATIO (0.9-2.4); AST(SGOT) 65 U/L (15-37); Alanine Aminotransfer ALT/SGPT 26 U/L (16-61); Albumin, Serum 3.1 g/dL (3.2-5.0); Alkaline Phosphatase 78 U/L (45-117); Anion Gap 8 (5-15); BUN 19 mg/dL (7-18); Calcium,Total 8.2 mg/dL (8.5-10.1); Chloride 106 mmol/L (98-107); Creatinine, Serum 1.19 mg/dL (0.70-1.30); EST Glomerular Filtration Rate 65 mL/min (>60); Est Glom Filt Rate - Afr Amer 78 mL/min (>60); Estimated Creatinine Clearance 66.88 ml/min; Globulin 3.5 g/dL (2.2-4.2); Glucose 116 mg/dL (74-106); Potassium 3.7 mmol/L (3.5-5.1); Protein, Total 6.6 g/dL (6.4-8.2); Sodium Level 139 mmol/L (136-145)
[2019-06-19] MEDS: Gemfibrozil 600 MG Tablet PO (07:04)
[2019-06-19] MEDS: Aspirin E.C. 81 MG Tablet PO (07:04)
--- NOTE | 2019-06-19 08:04 | PN_ITS ---
Patient Problems: Active and Suspected Problems Acute ST elevation myocardial infarction (STEMI) of posterior wall (Acute) Hyperglycemia (Acute) Subjective: Patient is a 69-year-old gentleman who presented with chest pain found to have acute inferior posterior wall FL underwent left heart catheterization with intervention. He had NAILA to his obtuse marginal as well as proximal left circumflex. Postprocedure patient did experience nonsustained VT as well as transient A. fib and transient bradycardia Objective: Patient is a 69-year-old gentleman who presented with chest pain found to have acute inferior posterior wall FL underwent left heart catheterization with intervention. He had NAILA to his obtuse marginal as well as proximal left circumflex. Postprocedure patient did experience nonsustained VT as well as transient A. fib and transient bradycardia Vitals/I&O's: Vital Signs Temp Pulse Resp BP Pulse Ox 98.4 F 60 12 129/80 H 98 06/19/19 04:00 06/19/19 07:24 06/19/19 07:22 06/19/19 07:22 06/19/19 07:22 Oxygen Flow Rate (L/min) 2 Oxygen Delivery Method Room Air Weight: 79 kg Body Mass Index (BMI) 24.6 Intake and Output for Last 24 Hours 06/17/19 06/18/19 06/19/19 23:59 23:59 23:59 Intake Total 2950 / 2950 120 / 120 Output Total 175 / 1025 1500 / 1500 220 / 220 Balance -175 / 175 1450 / 1450 -100 / -100 Laboratory Results 06/18/19 04:45: Magnesium 1.9 06/19/19 04:00: WBC 8.0, RBC 3.85 L, Hgb 12.4 L, Hct 35.7 L, MCV 92.7, MCH 32.2 H, MCHC 34.7, RDW Std Deviation 41.6, RDW Coeff of Larry 12.2, Plt Count 206, MPV 9.3 06/19/19 04:00: Sodium 139, Potassium 3.7, Chloride 106, Carbon Dioxide 25.0, Anion Gap 8, BUN 19 H, Creatinine 1.19, Estim Creat Clear Calc 66.88, Est GFR (MDRD) Af Amer 78, Est GFR (MDRD) Non-Af 65, BUN/Creatinine Ratio 16.0, Glucose 116 H, Calcium 8.2 L, Total Bilirubin 0.30, AST 65 H, ALT 26, Alkaline Phosphatase 78, Total Protein 6.6, Albumin 3.1 L, Globulin 3.5, Albumin/Globulin Ratio 0.9 Current Medications Acetaminophen (Tylenol) 650 mg PO Q6H PRN PRN PRN Reason: Mild Pain (0-2/10) Last Admin: 06/18/19 17:40 Dose: 650 mg Documented by: Aspirin (Ecotrin) 81 mg PO DAILY@0800 [facility] Last Admin: 06/19/19 07:04 Dose: 81 mg Documented by: Atropine Sulfate () 0.5 mg IV UD PRN PRN Reason: HR <50 bpm Ezetimibe (Zetia) 10 mg PO QHS [facility] Last Admin: 06/18/19 20:48 Dose: 10 mg Documented by: Fentanyl Citrate (Sublimaze (100mcg Ampule)) 25 mcg IV Q2H PRN PRN PRN Reason: pain Last Admin: 06/18/19 11:20 Dose: 25 mcg Documented by: Gemfibrozil (Lopid) 600 mg PO BIDAC [facility] Last Admin: 06/19/19 07:04 Dose: 600 mg Documented by: Heparin Sodium (Beef Lung) (Heparin 500 Unit/5 Ml (100/Ml)) 500 unit IV UD PRN PRN Reason: HEPARIN FLUSH Nitroglycerin/Dextrose () 250 mls @ 3 mls/hr CONT INF .[id number] [facility] Last Admin: 06/17/19 22:10 Dose: Not Given Documented by: Sodium Chloride () 250 mls @ 15 mls/hr IV .[id number] PRN PRN Reason: SALINE FLUSH Sodium Chloride () 500 mls @ 15 mls/hr IV .[id number] PRN PRN Reason: SALINE FLUSH Labetalol HCl (Trandate) 5 mg IV X1 PRN PRN Reason: SBP > 160 when pulling sheath Lorazepam (Ativan) 1 mg PO Q6H PRN PRN PRN Reason: BACK SPASMS/ANXIETY Last Admin: 06/18/19 20:48 Dose: 1 mg Documented by: Losartan Potassium (Cozaar) 12.5 mg PO DAILY [facility] Last Admin: 06/18/19 09:10 Dose: 12.5 mg Documented by: Nitroglycerin (Nitrostat) 0.4 mg SUBLINGUAL Q5M PRN PRN Reason: CARDIAC/CHEST PAIN Last Admin: 06/17/19 18:57 Dose: 0.4 mg Documented by: Ondansetron HCl (Zofran) 4 mg IV Q6H PRN PRN PRN Reason: NAUSEA/VOMITING Last Admin: 06/18/19 11:53 Dose: 4 mg Documented by: Sodium Chloride () 500 ml IV BOLUS PRN PRN Reason: VASO-VAGAL PROTOCOL Sodium Chloride () 10 - 40 ml IV UD PRN PRN Reason: SALINE FLUSH Last Admin: 06/18/19 11:20 Dose: 10 ml Documented by: Ticagrelor (Brilinta) 90 mg PO BID [facility] Last Admin: 06/18/19 20:48 Dose: 90 mg Documented by: Medical Necessity - Tobacco Use Smoking Status: Former smoker Tobacco Use: Non-smoker Assessment/Plan All Active Problems Acute ST elevation myocardial infarction (STEMI) of posterior wall (Acute) Hyperglycemia (Acute) Patient is a 69-year-old gentleman who presented with chest pain found to have acute inferior posterior wall FL underwent left heart catheterization with intervention. He had NAILA to his obtuse marginal as well as proximal left circumflex. Postprocedure patient did experience nonsustained VT as well as transient A. fib and transient bradycardia 1. Acute inferior posterior wall FL underwent left heart catheterization with intervention. He had ER/NAILA to his obtuse marginal as well as proximal left circumflex. Patient was also noted to have significant disease involving the proximal mid LAD and plan is for patient to undergo staged intervention 2. Post FL Arrhythmia; nonsustained VT as well as transient A. fib and transient bradycardia 3. Hypertension-blood pressure controlled, home medications continued with dose adjustment as needed 4. Dyslipidemia-patient is on statin therapy, continued at home dose with LDL of 184 5. DVT prophylaxis SC heparin Code Visit Inpatient E&M: 50173 Subs Hosp L2
--- NOTE | 2019-06-19 08:18 | CRPHASE1_ITS ---
Patient Communication PHII Cardiac Rehab Discussed with Patient:: Yes Guide to Cardiac Rehab Given to Patient:: Yes Cardiac Rehab Facility Choice List Given to Patient:: Yes Choice Program [facility] PHII:: Communication Given to CR, Refer to [facility] Dinkey Engineer:: Karri Cr PCP:: ALFREDO SNYDER Phase II Cardiac Rehab:: Yes Sessions:: 36 sessions - 3 days/wk, 12 weeks Risk Factors/Lifestyle Smoking Status: Former smoker Hx Hypertension: Yes Hx Diabetes Mellitus Type 1: No Hx Diabetes Mellitus Type 2: No Hx Dyslipidemia: Yes Height: 6 ft 1 in Weight:: 170 lb BMI: 22.4 Laboratory Values: Cardiac Rehab Phase I Labs Triglycerides 106 mg/dL (-199) 06/17/19 18:00 Cholesterol 243 mg/dL (200) H 06/17/19 18:00 184 mg/dL (0-130) H 06/17/19 18:00 38 mg/dL (40-) L 06/17/19 18:00 Phase I Education Given On:: Romeo, Nutrition, Antiplatelet medication, CHF, Smoking cessation, Diabetes - Type II Issues Affecting Care:: None Knowledge of Condition:: No Hospital Course Presenting Symptoms:: TIGHTNESS, SOB, LIGHTHEADED,NAUSEA Pain Description: Tightness Medical/Surgical History CAD:: Yes Asthma:: Yes Diabetes:: No Hypertension:: Yes Dyslipidemia:: Yes Discharge/Home/Social Eval Discharge Disposition: Home - ECHOCARDIOGRAM WAS TO BEGIN, SO ASSESSING ADDITION HEALTH INFO APART FROM H&P DECREASED Cardiac Rehabilitation Info Cardiac Rehabilitation Program Information: Cardiac Rehabilitation is important for patients like you who are recovering from a heart problem. Cardiac rehabilitation programs are recognized as integral to the continued care of the patient with coronary heart disease. The cardiac rehabilitation program is designed to optimize a patient's physical, psychological, and social functioning. Health palliative care specialist work in cardiac rehabilitation programs and assist you with getting the treatments you need to get stronger and healthier - like exercise, healthy eating habits, and medi cations. Cardiac rehabilitation has been show to help people with heart problems live longer and have better life enjoyment than people who do not go to cardiac rehabilitation. Please contact the Cardiac Rehabilitation Program at [facility] at in two weeks if you have not heard from them.
--- NOTE | 2019-06-19 08:23 | CRPH1.INSTRU ---
General Education CAD and cardiac anatomy and function:: Not instructed Explanation of diagnoses and procedures:: Not instructed Sign/Symptoms of NC:: Not instructed Antiplatelet therapy: Not instructed Proper use of NTG-SL: Not instructed Emergency procedures and activation of EMS: Not instructed Compliance of all prescribed medications: Not instructed Smoking Nicotine/Smoking Response Code:: Not instructed Dyslipidemia Patient Dyslipidemia Risk Factors Are:: Total Cholesterol - 243, Triglycerides - 106, HDL - 38, LDL - 184 Dyslipidemia Response Code:: Not instructed Overweight/Obesity Patient Overweight/Obesity Risk Factors Are:: BMI Normal [18-25 & < 65 years old] Overweight/Obesity:: Not instructed Hypertension Recommendations Include:: Maintain BP <130/85, BP <130/80 if diabetic, DASH dietary guidelines, Decrease/maintain normal body weight, Moderation of ETOH Hypertension:: Not instructed Heart Disease Patient Heart Disease Risk Factors Are:: Family history of heart disease < 65 years old Heart Disease Response Code:: Not instructed Diabetes Patient Diabetes Risk Factors Are:: No documented hx of diabetes Metabolic Syndrome Metabolic Syndrome Response Code:: Not instructed Sedentary Recommendations Include:: Aerobic exercise 5-7 times/week for 20-30 minutes continuously, Benefits of regular exercise, Discussed home walking program, Monitored Outpatient Cardiac Rehab - PT STATES HE WORKS OUT ROUTINELY Stress Stress Response Code:: Not instructed
[2019-06-19] MEDS: TICAGRELOR 90 MG TABLET PO (08:35)
[2019-06-19] MEDS: Losartan Potassium 25 MG Tablet 12.5 MG PO (08:37)
--- NOTE | 2019-06-19 09:54 | CASEMGMT ---
RN CM Assessment Presentation: STEMI Intro role of CM and purpose of RN CM assessment to patient in room. Pt is awake, alert and able to participate in assessment. Demographics, PCP and Pharmacy verified. Pt states he is independent, drives and no care needs on dc voiced.Noted Emergency contact was friend. Discussed with pt re: DPOA and recommending pt have one of his children listed for emergency contact. Name for son was given and pt would also like Ex , Sharon Rasheed to remain listed also PCP: Dr. Alvarez Specialists: Dr. Cr Preferred Pharmacy: [facility] Insurance: [employer] Prescription Benefit: yes. Discussed [employer] savings card including getting duran information from pharmacy, and if cost issues would arise to notify cardiology. Pt will have 30 day free. LNOK:Son, Dustin Rasheed - lives in [place], [place]; ex- Sharon Rasheed, lives locally Living Arrangements: Lives independently, denies use of DME Transportation: Drives or ex can drive Living Will, DPOA: does not have. Information given to patient and explained. Pt will consider, and let CM know if he would like to complete today. DEVIN Young updated. DME: none HHC: none Patient DC goals: Home DC PLAN: Home Fatmata SPEAR RN ACM
--- NOTE | 2019-06-19 09:58 | CL.I_ITS ---
Patient Name: SIM LAGOS Study Date: 06/17/2019 Performing: Karri Cr MD Ht: 72.83 inches 185 cm : 1950 Wt: 169.76 lbs 77 kg Age: 69 Gender: male BSA: 2 PROCEDURE(S) PERFORMED [id number]/LV [id number], NAILA AND/OR PTCA, ARTERY OR GRAFT, SINGLE VESSEL [id number] W OR WO PTCA, EACH ADD'L ARTERY, SAME MAJOR CLINICAL PROFILE AND CO-MORBIDITIES Patient presents with STEMI for emergent cardiac cath. Indications: New Onset Angina <= 2 months, ACS <= 24 hrs, Suspected CAD, Cardiac Arrythmia Heart Failure: None Stress/Imaging Stress/Image Study Performed: No Angina Classification Anginal Classification w/in 2 Weeks: CCS III CAD Presentations: STEMI. Symptom onset Date/Time: 06/17/2019 15:30:00 Time Estimated Comorbidities/Risk Factors: Hypertension Dyslipidemia Family History of Premature CAD CONCLUSIONS Triple vessel CAD of the LAD, LCX and OM Successful PTCA/NAILA proximal LCX with export assistance, utilizing a 3.0 x 20 Promus Stent, post dila stormy distally with a 4.0 x 8 NC, and a 3.5 x 8 NC proximally; 90%-->0%, no dissection. Successful PTCA/NAILA of OM#1 with a 2.5 x 38 Promus Synergy, post dilated throughout with a 3.0 x 12 N C Balloon; 75%-->0%, no dissection. No compromise of ostial OM branch. Transcutaneous pacer no longer needed once vessel flow was normalized. 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 RECOMMENDATIONS Referred for immediate PCI Highly recommend quitting all tobacco products Follow up with primary manager media relations Risk factor modification ASA Indefinitley Plavix for at least 12 months Routine post interventional care Refer for Outpatient Cardiac Rehab Manual sheath removal per protocol Follow up with Dr. Cr Elective PCI of LAD in 3 weeks if tolerating asa/brilinta. 6 Fr sheath sized up to a 7 Fr sheath due to small anirudh-sheath oozing. Manual sheath removal; pt too thin for Mynx closure. DESCRIPTION OF PROCEDURE The patient arrived to the procedure lab. The risks and benefits of the procedure as well as a full d escription of our services here and lack of surgical backup were fully explained to the patient and/o r their significant other prior to the catheterization. The Timeout was completed, verifying the jaylen ect patient and procedure. The patient's procedural site was prepped and draped in the usual fashion. Local anesthetic was given subcutaneously to right groin region with Lidocaine 2%. Using a modified Seldinger technique, arterial access was obtained via the right femoral artery, a 6Fr sheath was inse rted.. Left Coronary Artery selective angiography was performed in multiple views using a 5 Fr. JL 5 catheter. Right Coronary Artery selective angiography was then performed in multiple views using a 4 Fr. 3DRC catheter. Left Ventriculography was performed in ELLIS projection using a [address] LV to AO pullback pressures were then recordedThe images were reviewed and options discussed. A decision was then made to proceed with an Intervention, IVUS or other adjunct procedure. EBU 3.75 Guide catheter was inserted and engaged into the LCA. Runthrough Guide wire was advanced to the Circumflex. [place] AP inserted Pass # 1 [place]aven AP Removed BMW Guide wire was advanced to the 1st OM. 2x12 Emerge Balloon catheter was inserted. Balloon catheter was advanced across lesion in the first obtuse marginal, mid. PTCA balloon inflated at 8 atms for 8 secs. PTCA balloon inflated at 10 atms for 14 secs. PTCA balloon inflated at 12 atms for 12 secs. 2.5x38 Synergy Drug Eluting stent was inserted. Drug Eluting stent was advanced across the lesion in the first obtuse marginal, mid. Angio gram performed post stent deployment. 3x12 NC Emerge Balloon catheter was inserted. Balloon catheter was advanced across lesion in the first obtuse marginal, mid. Angiogram performed post balloon dilata tion. 2x12 Emerge Balloon catheter was advanced across lesion in the circumflex, proximal. PTCA ballo on inflated at 8 atms for 10 secs. 3x20 Synergy Drug Eluting stent was inserted. Drug Eluting stent was advanced across the lesion in the circumflex, proximal. 3x12 NC Emerge Balloon cath eter was inserted. Balloon catheter was advanced across lesion in the circumflex, proximal. Angiogram performed post balloon dilatation. 4x8 NC Emerge Balloon catheter was inserted. Balloon catheter was advanced across lesion in the circumflex, proximal. 3.5x8 NC Emerge Balloon catheter was inserted. B alloon catheter was advanced across lesion in the circumflex, proximal. Angiogram performed post ball oon dilatation. The arterial sheath was exchanged to upsize due to bleeding around the insertion si te, 7FR sheath inserted. The arterial sheath was sutured in place and capped CORONARY ANGIOGRAPHY DOMINANCE: Left Dominant LEFT HEART ASSESSMENT Left Ventricular Ejection Fraction: by LV Gram 55 % Depressed Left Ventricular systolic function LVEDP: 5 mmHg Normal Left Ventricular End Diastolic Pressure Inferior Lateral Hypokinesis - Mild LEFT MAIN: Mild calcification LEFT ANTERIOR DESCENDING ARTERY: PROX LAD: Mild calcification, 85 % Stenosis MID LAD: 75 % Stenosis DIAGONAL 1: Mid - 65 % Stenosis CIRCUMFLEX ARTERY: PROX CIRC: 95 % Stenosis DISTAL CIRC: Angiographically normal OM 1: Mid - 75 % Stenosis 1ST LEFT PLV: Angiographically normal RIGHT CORONARY ARTERY: MID RCA: 85 % Stenosis INTERVENTION INFORMATION LESION SITE: Circumflex (Proximal) Lesion Complexity: High/C, lesion at bifurcation: No, thrombus present: Yes, lesion length: 20 mm, cu lprit lesion: Yes Pre Stenosis: 90 % Pre intervention DANIELA flow: 2 PROCEDURE: Balloon Angioplasty, Thrombectomy, Drug Eluting Stent with pre and post dilatation Post Stenosis: 0 % Post intervention DANIELA flow: 3 Lesion Devices: Medtronic .014 Zinger medium wire 180cm straight Medtronic 6 Fr. [place] AP Aspiration Catheter Medtronic 6 Fr EBU3.75 100cm Guide Catheter Terumo .014 Runthrough Extra Floppy 180cm straight Bryce Sci EMERGE MR 2.00x12 BALLOON Bryce Sci NC EMERGE MR 3.00x12 BALLOON Bryce Sci Synergy MR NAILA 3.00x20 Bryce Sci NC EMERGE MR 4.00x08 BALLOON Bryce Sci NC EMERGE MR 3.50x08 BALLOON LESION SITE: 1st OM (Mid) Lesion Complexity: High/C, lesion at bifurcation: No, thrombus present: No, lesion length: 38 mm, cul prit lesion: No Pre Stenosis: 75 % Pre intervention DANIELA flow: 1 PROCEDURE: Drug Eluting Stent with pre and post dilatation Post Stenosis: 0 % Post intervention DANIELA flow: 3 Lesion Devices: Medtronic 6 Fr EBU3.75 100cm Guide Catheter Isbell .014 BMW [place] Straight 190cm Bryce Sci EMERGE MR 2.00x12 BALLOON Bryce Sci Synergy MR NAILA 2.50x38 Bryce Sci NC EMERGE MR 3.00x12 BALLOON COMPLICATIONS No Complications PROCEDURE MEDICATIONS Fentanyl 25 mcg IV Oxygen: 4 L/min via nasal cannula Atropine 1mg/10ml 0.5 amp 06/17/2019 16:30:46 Baby Aspirin (81mg) 1 Tabs PO @ 06/17/2019 16:50:13 Heparin 6000 unit(s) IV 06/17/2019 16:30:53 Nitro 200 mcg IC 06/17/2019 16:35:47 Nitro 200 mcg IC 06/17/2019 16:35:47 Nitro 200 mcg IC 06/17/2019 16:44:45 SUMMARY OF HEMODYNAMIC DATA Time AIR REST AO 141/88 (110) SA 16:25:23 LV 136/-12, 5 17:15:19 LV 138/-11, 5 17:15:25 LVp 131/-12, 7 17:15:30 AOp 126/74 (98) 17:15:35 Signed By Karri Cr MD On 06/19/2019 9:57:39 AM Signed By Karri Cr MD On 06/17/2019 17:40:52 Karri Cr MD
--- NOTE | 2019-06-19 10:00 | EKG12_ITS ---
Test Reason : AM EKG Blood Pressure : / mmHG Vent. Rate : 065 BPM Atrial Rate : 065 BPM P-R Int : 202 ms QRS Dur : 084 ms QT Int : 436 ms P-R-T Axes : 058 -09 -80 degrees QTc Int : 453 ms Normal sinus rhythm Inferior infarct , age undetermined , cannot be excluded Cannot exclude Precordial lead misplacement Consider repeat EKG Abnormal ECG Confirmed by DAINA BLACKMON, NOLBERTO ([id number]), multimedia editor BENNETT DIAS ([id number]) on 06/20/2019 1:08:00 PM Referred By: Karri Cr Confirmed By:NOLBERTO LAMA MD
[2019-06-19] MEDS: Metoprolol Tartrate 25 MG Tablet 12.5 MG PO (10:07)
--- NOTE | 2019-06-19 10:41 | PCM.DC ---
- Discharge Diagnoses Current Active Problems: Current Active and Chronic Problems Stented coronary artery (Chronic) Acute ST elevation myocardial infarction (STEMI) of posterior wall (Acute) Asthma (Chronic) Anxiety and depression (Chronic) HTN (hypertension) (Chronic) HLD (hyperlipidemia) (Chronic) Former smoker, stopped smoking in distant past (Chronic) quit 1998 Family history of ASCVD (Chronic) father had bypass surgery at 72 YOA Chronic renal failure, stage 3 (moderate) (Chronic) Hyperglycemia (Acute) Erectile dysfunction (Chronic) You will use the following diet at home:: Cardiac Discharge Activity: Return to Normal Activity Allergies/Adverse Reactions: Allergies ibuprofen Allergy (Severe, Verified 06/17/19 18:25) Anaphylaxis Sulfa (Sulfonamide Antibiotics) Allergy (Verified 06/17/19 15:43) Rash Medications to take at Discharge Albuterol IH (ProAir) [Proair Hfa] 2 puff INHALATION Q4H PRN PRN 06/18/19 Escitalopram Oxalate [Lexapro] 10 mg PO DAILY 06/18/19 Omeprazole 40 mg PO DAILY 06/18/19 Aspirin E.C. [Ecotrin] 81 mg PO DAILY@0800 #90 tab 06/19/19 Ezetimibe [Zetia] 10 mg PO QHS #90 tab 06/19/19 Gemfibrozil [Lopid] 600 mg PO BIDAC #180 tab 06/19/19 Losartan Potassium [Cozaar] 12.5 mg PO DAILY #90 tab 06/19/19 Metoprolol Tartrate [Lopressor (beta nay)] 12.5 mg PO BID #180 tab 06/19/19 Ticagrelor [Brilinta] 90 mg PO BID #180 tab 06/19/19 The following prescriptions were given: Ticagrelor [Brilinta] 90 mg PO BID #180 tab Transmission Status: Pending to [facility] Losartan Potassium [Cozaar] 12.5 mg PO DAILY #90 tab Transmission Status: Pending to [facility] Aspirin E.C. [Ecotrin] 81 mg PO DAILY@0800 #90 tab Transmission Status: Pending to [facility]30 Gemfibrozil [Lopid] 600 mg PO BIDAC #180 tab Transmission Status: Pending to [facility]30 Metoprolol Tartrate [Lopressor (beta nay)] 12.5 mg PO BID #180 tab Transmission Status: Pending to [facility] Ezetimibe [Zetia] 10 mg PO QHS #90 tab Transmission Status: Pending to [facility]30 Orders to be completed after discharge: Phase II, Outpatient Cardiac Rehab Location: None Selected Primary Care Physician: Care Physician,No Primary [NON-STAFF] - Please follow up with your Primary Care Physician in: in 1-2 weeks Test Results: Test results from this visit will be discussed in further detail at your follow-up appointment, if applicable. Please Follow Up With: Karri Cr MD When: SCHEDULED Proposed Discharge Date: 06/19/19
--- NOTE | 2019-06-19 10:43 | PCM.DC.SUM ---
Discharge Date and Diagnosis - Problem List Patient Problems: Active and Suspected Problems Acute ST elevation myocardial infarction (STEMI) of posterior wall (Acute) Hyperglycemia (Acute) Date of Admission: 06/17/19 Date of Discharge: 06/19/19 - Primary Discharge Diagnosis Active and Suspected Problems Acute ST elevation myocardial infarction (STEMI) of posterior wall (Acute) Hyperglycemia (Acute) - Secondary Discharge Diagnosis Chronic Problems Stented coronary artery (Chronic) Asthma (Chronic) Anxiety and depression (Chronic) HTN (hypertension) (Chronic) HLD (hyperlipidemia) (Chronic) Former smoker, stopped smoking in distant past (Chronic) quit 1998 Family history of ASCVD (Chronic) father had bypass surgery at 72 YOA Chronic renal failure, stage 3 (moderate) (Chronic) Erectile dysfunction (Chronic) Hospital Course and Treatment Summary of Care Provided: Patient is a 69-year-old gentleman who presented with chest pain found to have acute inferior posterior wall WA underwent left heart catheterization with intervention. He had NAILA to his obtuse marginal as well as proximal left circumflex. Postprocedure patient did experience nonsustained VT as well as transient A. fib and transient bradycardia 1. Acute inferior posterior wall WA underwent left heart catheterization with intervention. He had ER/NAILA to his obtuse marginal as well as proximal left circumflex. Patient was also noted to have significant disease involving the proximal mid LAD and plan is for patient to undergo staged intervention 2. Post WA Arrhythmia; nonsustained VT as well as transient A. fib and transient bradycardia 3. Hypertension-blood pressure controlled, home medications continued with dose adjustment as needed 4. Dyslipidemia-patient did not tolerate statins in the past was therefore discharged home on gemfibrozil as well as Zetia 5. DVT prophylaxis SC heparin Patient Problems: Active and Suspected Problems Acute ST elevation myocardial infarction (STEMI) of posterior wall (Acute) Hyperglycemia (Acute) Objective: GENERAL: cooperative HEENT: Atraumatic; moist oral mucosa EYES; Anicteric, Normal Conjunctiva NECK; supple, normal thyroid, no distended JVD. RESPIRATORY: Diminished to auscultation bilaterally, CARDIOVASCULAR: Regular S1 S2, no audible murmurs GI: soft, non-tender, normoactive bowel sounds, : No Renal angle tenderness; EXTREMITIES: No edema, no clubbing, no cyanosis. MUSCULOSKELETAL: No Joint Tenderness; no muscle waisting NEURO: Awake; no lateralizing signs. SKIN: No Rash PSYCH; Normal affect - Physical Exam Vital Signs Temp Pulse Resp BP Pulse Ox 98.4 F 76 19 H 123/57 H 98 06/19/19 04:00 06/19/19 10:07 06/19/19 10:00 06/19/19 10:07 06/19/19 07:22 Oxygen Flow Rate (L/min) 2 Oxygen Delivery Method Room Air Weight: 77.111 kg Body Mass Index (BMI) 24.6 Intake and Output for Last 24 Hours 06/17/19 06/18/19 06/19/19 23:59 23:59 23:59 Intake Total 2950 / 2950 120 / 120 Output Total 175 / 1025 1500 / 1500 220 / 220 Balance -175 / 175 1450 / 1450 -100 / -100 Laboratory Tests Past 24 Hrs 06/19/19 06/19/19 04:00 04:00 WBC 8.0 RBC 3.85 L Hgb 12.4 L Hct 35.7 L MCV 92.7 MCH 32.2 H MCHC 34.7 RDW Std Deviation 41.6 RDW Coeff of Larry 12.2 Plt Count 206 MPV 9.3 Sodium 139 Potassium 3.7 Chloride 106 Carbon Dioxide 25.0 Anion Gap 8 BUN 19 H Creatinine 1.19 Estim Creat Clear Calc 66.88 Est GFR (MDRD) Af Amer 78 Est GFR (MDRD) Non-Af 65 BUN/Creatinine Ratio 16.0 Glucose 116 H Calcium 8.2 L Total Bilirubin 0.30 AST 65 H ALT 26 Alkaline Phosphatase 78 Total Protein 6.6 Albumin 3.1 L Globulin 3.5 Albumin/Globulin Ratio 0.9 Discharge Diet: Low fat/ Low Cholesterol Discharge Activity: Return to Normal Activity Home Medications: Medications to take at Discharge Albuterol IH (ProAir) [Proair Hfa] 2 puff INHALATION Q4H PRN PRN 06/18/19 Escitalopram Oxalate [Lexapro] 10 mg PO DAILY 06/18/19 Omeprazole 40 mg PO DAILY 06/18/19 Aspirin E.C. [Ecotrin] 81 mg PO DAILY@0800 #90 tab 06/19/19 Ezetimibe [Zetia] 10 mg PO QHS #90 tab 06/19/19 Gemfibrozil [Lopid] 600 mg PO BIDAC #180 tab 06/19/19 Losartan Potassium [Cozaar] 12.5 mg PO DAILY #90 tab 06/19/19 Metoprolol Tartrate [Lopressor (beta jen)] 12.5 mg PO BID #180 tab 06/19/19 Ticagrelor [Brilinta] 90 mg PO BID #180 tab 06/19/19 Following Prescrptions Were Given to Patient: Ticagrelor [Brilinta] 90 mg PO BID #180 tab Transmission Status: Received by [facility] #[facility] Losartan Potassium [Cozaar] 12.5 mg PO DAILY #90 tab Transmission Status: Received by [facility] Aspirin E.C. [Ecotrin] 81 mg PO DAILY@0800 #90 tab Transmission Status: Received by [facility]30 Gemfibrozil [Lopid] 600 mg PO BIDAC #180 tab Transmission Status: Received by [facility] #30 Metoprolol Tartrate [Lopressor (beta jen)] 12.5 mg PO BID #180 tab Transmission Status: Received by [facility] Ezetimibe [Zetia] 10 mg PO QHS #90 tab Transmission Status: Received by [facility] #30 Other Amb Orders: Phase II, Outpatient Cardiac Rehab Location: None Selected Primary Care Physician: Care Physician,No Primary [NON-STAFF] - Please follow up with your Primary Care Physician in: in 1-2 weeks Please Follow Up With: Karri Cr MD When: SCHEDULED Disposition: Home Minutes spent on discharge:: 35 Patient Condition:: Stable Medical Necessity - Tobacco Use Smoking Status: Former smoker Tobacco Use: Non-smoker Meaningful Use Info Meaningful Use Diagnoses (Choose all that apply): AMI - AMI Aspirin given w/in 24hrs of arrival?: Yes ASA at discharge?: Yes Statins at discharge?: No Reason statins not ordered:: Allergy Bola/ARB at discharge?: Yes Beta Jen at discharge?: Yes Done w/ Acute WA measure.: Yes Documented LVEF (%): 55 Code Visit Inpatient E&M: 97050 Disch Hosp
--- NOTE | 2019-06-19 12:57 | PCM.PN.CARD ---
Subjectve: Patient doing very well this morning. Did have a headache last evening possibly due to Coreg. No further headache this morning. Tolerating baby aspirin, Brilinta, gemfibrozil and losartan without difficulty. Telemetry showed normal sinus rhythm with 4 beat run of nonsustained ventricular tachycardia. No chest pain overnight whatsoever. Right groin is clean/dry/intact. Objective: Vital Signs Temp Pulse Resp BP Pulse Ox 97.9 F 62 26 H 133/90 H 96 06/19/19 12:00 06/19/19 12:00 06/19/19 12:00 06/19/19 12:00 06/19/19 12:00 Oxygen Flow Rate (L/min) 2 Oxygen Delivery Method Room Air Weight: 170 lb Body Mass Index (BMI) 24.6 Intake and Output for Last 24 Hours 06/17/19 06/18/19 06/19/19 23:59 23:59 23:59 Intake Total 2950 / 2950 420 / 420 Output Total 175 / 1025 1500 / 1500 220 / 220 Balance -175 / 175 1450 / 1450 200 / 200 General: Awake, Alert, Oriented x 3 HEENT: PERRL, EOMI, Sclera Non Icteric Neck: Supple, Good ROM, No Lymph Node Enlargement Lungs: Clear to auscultation Cardiovascular: Regular Rhythm, Normal S1, Normal S2, No Murmurs, No Rubs, No Gallops Vascular: No Carotid Bruits, Normal Femoral Pulses, Normal Radial Pulses, Normal Dorsalis Pedal Pulse, Normal Posterior Tibial Pulses Abdomen: Bowel Sounds Present, Soft, Non Tender, No HSM, No Organomegaly Extremities: No Cyanosis, No Clubbing, No edema Neurological: No Focal Motor or Sensory Deficit 06/19/19 04:00: WBC 8.0, RBC 3.85 L, Hgb 12.4 L, Hct 35.7 L, MCV 92.7, MCH 32.2 H, MCHC 34.7, Plt Count 206, MPV 9.3 06/19/19 04:00: Sodium 139, Potassium 3.7, Chloride 106, Carbon Dioxide 25.0, Anion Gap 8, BUN 19 H, Creatinine 1.19, Est GFR (MDRD) Af Amer 78, Est GFR (MDRD) Non-Af 65, BUN/Creatinine Ratio 16.0, Glucose 116 H, Calcium 8.2 L, Total Bilirubin 0.30 Rhythm: EKG: ECHO: Pending Stress Test: Cardiac Cath: PCI: CT Surgery: Holter monitor: EPS: PPM: CXR: Chest CT Scan: Medical Necessity - Tobacco Use Smoking Status: Former smoker Tobacco Use: Non-smoker Assessment/Plan 1. Coronary artery disease: The patient presented with acute inferior posterior wall myocardial infarction underwent successful emergent left heart catheterization and coronary angioplasty receiving a drug-eluting stent to his obtuse marginal in the form of a 2.5X 38 Promus Synergy stent, postdilated to 3.0 mm. In addition he underwent angioplasty and stenting to the proximal left circumflex receiving a 3.0X 20 Promus, postdilated 3.5 and 4.0 mm. Patient has reverted from atrial fibrillation back to normal sinus rhythm. Patient was started on Lopid yesterday and is tolerating it well. Patient did have a headache last evening which may have been due to Coreg. No headache this morning. Patient received Lopressor 12.5 mg x 1, and he has had no further headaches. Patient is ambulate in the halls, and is doing well. Recommend the patient continue baby aspirin as it appears that he is able to tolerate this and does not have a true allergy to aspirin itself but rather to ibuprofen. If this changes, we can just continue Brilinta twice daily. Recommended continuing Coreg, losartan as well. We will obtain a 2D echo with Doppler today to get a baseline evaluation of his LV function as it stands today. He will then have a repeat echocardiogram at the conclusion of cardiac rehab and after his revascularization of his LAD. Patient return in 3 weeks time to have elective PCI of his proximal mid LAD. I would not recommend stress testing given his recent myocardial infarction, as well as given the significant stenosis of his proximal mid LAD. Patient will be discharged home if ambulating the hallway well and tolerating Lopressor. 2. Hyperlipidemia: The patient has profound hyperlipidemia as well as a positive family history. His LDL is 184. He did not tolerate statins due to myalgias in the past. Recommend starting him on gemfibrozil 600 mg p.o. twice daily as well as Zetia 10 mg p.o. nightly. Repeat lipid profile in 6 weeks time. 3. Peripheral vascular disease: The patient has requested carotid evaluation given the positive carotid stenosis in both of his adult appearance. We will obtain carotid ultrasound today. Patient may be discharged home. 4. Atrial fibrillation: The patient developed transient atrial fibrillation during his acute myocardial infarction. He did require a low dose of IV atropine which triggered the atrial fibrillation. He is reverted back to normal sinus rhythm. We will continue Coreg therapy. Do not believe he requires antiarrhythmic therapy at this time. Would hold off on anticoagulation as well given his reversion back to normal sinus rhythm as well as the need for elective angioplasty in 3 to 4 weeks time. 5. Thank you very much for the opportunity to participate in the cardiac care of your patient. Patient will be discharged home and follow-up with Dr. Cr going forward. Code Visit Inpatient E&M: 63358 Subs Hosp L2
--- NOTE | 2019-06-19 13:50 | CASEMGMT ---
Social Work Met with pt and Ex Sharon and reviewed Living will and Health care POA. Assisted pt in completing both documents. Original given to pt with instructions to give copy to HC POA and to PCP. Copy placed on pt chart. JCARLOS Valentine
== END 2019-06-19 14:00 | disposition home or self-care (01) | DRG 247 ==
LOC: ED 16:02 → ICU 16:18
PROVIDERS: Internal Medicine; Admitting Provider Internal Medicine; Emergency Provider Emergency Medicine; Family Provider Internal Medicine; PCP Internal Medicine; Referring Provider Internal Medicine Cardiovascular Disease; Visit Provider Internal Medicine
DX: I21.29 ST elevation (STEMI) myocardial infarction involving other sites (principal); I47.2 Ventricular tachycardia; N18.3 Chronic kidney disease, stage 3 (moderate); I12.9 Hypertensive chronic kidney disease with stage 1 through stage 4 chronic kidney disease, or unspecified chronic kidney disease; E78.5 Hyperlipidemia, unspecified; F32.9 Major depressive disorder, single episode, unspecified; F41.9 Anxiety disorder, unspecified; J45.909 Unspecified asthma, uncomplicated; N52.9 Male erectile dysfunction, unspecified; Z82.49 Family history of ischemic heart disease and other diseases of the circulatory system; Z87.891 Personal history of nicotine dependence; I48.91 Unspecified atrial fibrillation; R00.1 Bradycardia, unspecified; I25.10 Atherosclerotic heart disease of native coronary artery without angina pectoris; R73.9 Hyperglycemia, unspecified
CPT/HCPCS: 36415; 71045; 80048; 80053; 80061; 83735; 84484; 85025; 85027; 85347; 85610; 85730; 92929; 92941; 93005; 93306; 93458; 93880; 97802; 99152; 99285; J7030; Q9957; Q9967; A4216; C1725; C1757; C1769; C1874; C1887; C1894; C9601; C9606; J2405

== ENCOUNTER 2019-07-17 07:59 | Day surgery (SDC) | payer MEDICARE, SELFPAY ==
[2019-06-17 18:13] VITALS: BMI 24.6
[2019-06-19 08:23] VITALS: BMI 22.4
[2019-07-03 08:47] VITALS: BMI 23.2
[2019-07-17] VITALS (24 sets, daily range): BP systolic 119–168; BP diastolic 64–97; PULSE 55–88; RESP 10–23; TEMP 36.9; O2SAT 94–98; BMI 22.4; BMI 23.6
--- NOTE | 2019-07-17 09:32 | PCM.HP.BLA ---
Problem List (1) Acute ST elevation myocardial infarction (STEMI) of posterior wall Status: Acute (2) Chronic renal failure, stage 3 (moderate) Status: Chronic (3) HLD (hyperlipidemia) Status: Chronic (4) HTN (hypertension) Status: Chronic (5) Stented coronary artery Status: Chronic Comment: Triple vessel CAD of the LAD, LCX and OM Successful PTCA/NAILA proximal LCX with export assistance, utilizing a 3.0 x 20 Promus Stent; Successful PTCA/NAILA of OM#1 with a 2.5 x 38 Promus Synergy. To have staged procedure in approx 3 weeks of LAD History and Physical Date of Admission: 07/17/19 [facility] [address] [place] [address] OFFICE VISIT Date of Service: 07/03/19 MR#: [id number] Acct: [id number] Name: SIM LAGOS KEELEY Rep #: [id number] : 1950 Provider: Karri Cr MD Age/Sex: 69/M Location: [facility] Status: Signed HPI [facility] History of Present Illness Details: The patient is a 69 year old M with a past medical history of hypertension, hyperlipidemia (on no medication), asthma, anxiety/depression and former smoking hx who presented to the ED at [facility] on 06/17/19 by squad c/o anterior chest tightness, shortness of breath, lightheadedness, nausea and numbness in his left hand. He works out regularly and had no pain with his workout today but the pain started after his w/o. EKG done in the squad showed deep ST depression with T wave inversions in the anterior leads. Code STEMI was called and he was given 180 mg of Brilinta and 4,000 units of intravenous heparin. Initial vital signs in the emergency department were blood pressure 126/86, respiratory rate 14, 100% saturation on a nasal cannula and a pulse rate of 45. A repeat EKG showed bradycardia with persistent ST depression and T wave inversions in the anterior leads. The HR dropped to the low 30's and the BP dropped to 70's systolic. Fluid boluses were started in 2 IV's and the external PM was applied and the rate was set at 50 with good capture. He received 4 mg of MS and nausea worsened and he received a total of 8 mg of Zofran. In the past he has had a anaphylactic reaction to Motrin and was told never to take aspirin. BP came up into the normal range with pacing and fluid boluses. Patient was a former smoker of 3 packs a day for 8 years but quit many years ago. Patient underwent emergent left her catheterization and coronary angiography which demonstrated a subtotal dominant left circumflex and obtuse marginal, as well as a significant lesion in the proximal mid LAD. His right coronary was nondominant but did have a stenosis and a small less than 2 mm vessel. The patient received the following intervention: Successful PTCA/NAILA proximal LCX with export assistance, utilizing a 3.0 x 20 Promus Stent, post dilated distally with a 4.0 x 8 NC, and a 3.5 x 8 NC proximally; 90%-->0%, no dissection. Successful PTCA/NAILA of OM#1 with a 2.5 x 38 Promus Synergy, post dilated throughout with a 3.0 x 12 NC Balloon; 75%-->0%, no dissection. No compromise of ostial OM branch. Transcutaneous pacer no longer needed once vessel flow was normalized. 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 Patient transition back to normal sinus rhythm during his stay. He is now here for follow-up in anticipation of his upcoming elective angioplasty and stenting of his proximal mid LAD. His carotid ultrasound demonstrated less than 50% stenosis in bilateral internal carotids. The patient denies any chest pain, and in fact feels great. He is awaiting his second intervention followed by cardiac rehab. He is taking and tolerating his medicines well. In our office today's blood pressure is 120/70, pulse is 60 and regular. Physical exam demonstrates regular rate and rhythm, normal S1/S2, no S3 or S4. EKG dated 06/19/2019 showed normal sinus rhythm with excellent anterior R wave progression and resolving inferior ST segment changes. His lipids as of 06/17/2019 show an LDL of 184 and HDL 38. Intake Vital Signs 07/03/19 Height 6 ft 1 in 07/03/19 Weight: 176 lb 07/03/19 Body Mass Index (BMI) 23.2 07/03/19 Blood Pressure 120/70 07/03/19 Blood Pressure Location Lt brachial 07/03/19 Blood Pressure Position Sitting 07/03/19 Respiratory Rate 20 H 07/03/19 Pulse Rate 60 07/03/19 Pulse Source Auscultation Intake Visit Reasons: STEMI, H&P for staged PCI Allergies ibuprofen Allergy (Severe, Verified 06/30/19 19:13) Anaphylaxis Sulfa (Sulfonamide Antibiotics) Allergy (Verified 06/30/19 19:13) Rash Medications Albuterol IH (ProAir) [Proair Hfa] 2 puff INHALATION Q4H PRN PRN 06/18/19 [History Confirmed 06/30/19] Escitalopram Oxalate [Lexapro] 10 mg PO DAILY 06/18/19 [History Confirmed 06/30/19] Omeprazole 40 mg PO DAILY 06/18/19 [History Confirmed 06/30/19] Aspirin E.C. [Ecotrin] 81 mg PO DAILY@0800 #90 tab 06/19/19 [Rx Confirmed 06/30/19] Ezetimibe [Zetia] 10 mg PO QHS #90 tab 06/19/19 [Rx Confirmed 06/30/19] Gemfibrozil [Lopid] 600 mg PO BIDAC #180 tab 06/19/19 [Rx Confirmed 06/30/19] Losartan Potassium [Cozaar] 12.5 mg PO DAILY #90 tab 06/19/19 [Rx Confirmed 06/30/19] Metoprolol Tartrate [Lopressor (beta nya)] 12.5 mg PO BID #180 tab 06/19/19 [Rx Confirmed 06/30/19] Ticagrelor [Brilinta] 90 mg PO BID #180 tab 06/19/19 [Rx Confirmed 06/30/19] PFSH Medical History Acute ST elevation myocardial infarction (STEMI) of posterior wall (Acute) Asthma (Chronic) HTN (hypertension) (Chronic) HLD (hyperlipidemia) (Chronic) Former smoker, stopped smoking in distant past (Chronic) Family history of ASCVD (Chronic) Chronic renal failure, stage 3 (moderate) (Chronic) Surgical History Stented coronary artery (Chronic) Family History Mother Thyroid disorder Father Heart disease Thyroid disorder Social History (Updated 07/03/19 @ 09:15 by Karri Cr MD) Smoking Status: Former smoker ROS Const Const: Positive for other (Here for H&P for staged PCI, had STEMI on 06/17/19. Feels well); negative for fatigue, weakness, body ache, fever(s), headache(s), chills, frequent falls, night sweats, daytime sleepiness, difficulty sleeping, excessive sweating, weight gain, weight loss, increased appetite, poor appetite or anorexia Eyes Eyes: Negative for blind spots, loss of peripheral vision, transient loss of vision, blurry vision, change in vision, double vision, floaters, tunnel vision or other ENT ENT: Negative for headache(s), dizziness, hearing loss, tinnitus, Nosebleed/epistaxis, balance problems, post nasal drip, lip swelling, tongue swelling, bleeding gums, hoarseness, neck pain, dry mouth or other Cardio Chest Pain: No Palpitations: No Edema: None Muscle aches with walking: None Resp Respiratory: Negative for SOB with activity, SOB at rest, SOB orthopnea\SOB lying down, Cough, Coughing up blood/hemoptysis, chest congestion, pain on inspiration, snoring, stridor, wheezing, crackles, paroxysmal nocturnal dyspnea or other GI GI: Negative nausea, vomiting, heartburn, constipation, belching, bloating, cramping, vomiting blood/hematemesis, bright, red blood in stools, black,tarry stools, loose stools, Difficulty Swallowing or other : Negative for hematuria, frequent nighttime urination/ nocturia, erectile dysfunction or abnormal vaginal bleeding Musc Musc: Negative for muscle aches/ myalgia, muscle weakness, joint pain or balance problems Skin Skin: Negative redness, non-healing lesions, rash, unusual bruising, skin ulcer, wounds, jaundice or other Neuro Neuro: Negative for dizziness, lightheadedness, near syncope, syncope, orthostatic symptoms, frequent falls, headache(s), weakness, confusion, memory loss, restless legs, blurry vision, double vision, vertigo, seizures, lack of coordination or other [place] Hematologic/Lymphatic: Negative for easy bleeding, easy bruising, enlarged lymph nodes or other Endo Endo: Negative for fatigue, cold intolerance, heat intolerance, excessive sweating, flushing, increased thirst/drinking, increased hunger, hair loss, hair growth or other Psych Psych: Negative for anxiety, depression, thoughts of harming anyone, thoughts of harming yourself, visual hallucinations, panic attacks or audible hallucinations Allergy Allergy/Immunology: Negative for throat swelling, Negative for tongue swelling, Negative for hives, Negative for rash, Negative for lip swelling Cardiology Exam Const Appearance: cooperative, healthy appearing and no acute distress Nutritional Appearance: well nourished Orientation: alert, oriented x3 and oriented to person Head Head: normal to inspection, normocephalic and atraumatic Nose: external nose normal Face and Sinus: face symmetric Mouth: oral mucosae normal Eyes General: appearance normal, both eyes and all related structures Eyelids: eyelids normal Conjunctivae: conjunctivae normal Pupils: PERRL and normal by confrontation EOM: EOM intact bilaterally Neck Neck: normal visual inspection and full ROM Carotids: normal carotid upstroke Chest Chest inspection: normal inspection of the chest Auscultation: Bilateral: Clear to Auscultation Cardio Palpation: normal PMI Rate: regular rate Rhythm: regular rhythm Heart sounds: S1 normal and S2 normal GI GI: normal to inspection, no hepatosplenomegaly and bowel sounds present Neuro General: alert, awake, oriented x3, CN's II-XI intact bilaterally and moves all extremities Skin Skin: no rashes or lesions noted Extremities Pulses: Normal: Right Femoral Pulse, Left Femoral Pulse, Right Dorsalis Pedis Pulse, Left Dorsalis Pedis Pulse, Right Posterior Tibial Pulse, Left Posterior Tibial Pulse, Right Radial Pulse, Left Radial Pulse Lower Extremity Edema: None: Bilateral Psych Psychological: normal affect Assessment & Plan 1. Acute ST elevation myocardial infarction (STEMI) of posterior wall I21.29 Plan 1. Status post acute inferolateral wall myocardial infarction. The patient underwent emergent left her catheterization Eliza plasty and stenting of his left circumflex and obtuse marginal with an excellent result. He has remaining proximal mid LAD stenosis with mild calcification which appears to be appropriate for elective angioplasty. I am advised the patient not to do any heavy lifting or work such as cutting grass until his elective antroplasty is been completed on 07/17/2019. In the meantime he will continue baby aspirin and Brilinta. His blood pressure and heart rate are well controlled. He will continue his losartan and metoprolol. 2. HLD (hyperlipidemia) E78.5 Plan 2. Hyperlipidemia: We will repeat his lipid profile at his next elective angioplasty on 07/17/2019. In the meantime he will continue gemfibrozil and ezetimibe. 3. Peripheral vascular disease: The patient's carotid ultrasound demonstrates less than 50% stenosis bilateral internal carotid arteries. We will continue maintenance surveillance of carotid arteries on a yearly basis. 4. Return office in 6 months. This note was generated using a voice recognition system and there may be incorrect words, spelling or punctuation that were not noted when reviewing the office note prior to saving. Plan Detail Follow Up +6M (Tayo) Coding Level of Care Code Off vis,est,level [address] elevation myocardial infarction (STEMI) of posterior wall I21.29 HLD (hyperlipidemia) E78.5 Coding Level of Care Code Off vis,est,level [address] elevation myocardial infarction (STEMI) of posterior wall I21.29 HLD (hyperlipidemia) E78.5 Supplemental Info Supplemental Information Labs LDL Cholesterol 184 mg/dL (0-130) H 06/17/19 HDL Cholesterol 38 mg/dL (40-) L 06/17/19 Triglycerides 106 mg/dL (-199) 06/17/19 VLDL Cholesterol 21 mg/dL (5-40) 06/17/19 Diagnostics Electrocardiogram 06/19/19 Echocardiogram 06/17/19 Chest X-Ray 06/17/19 07/03/19 0915 <Electronically signed by Karri Cr MD> Date Karri Cr MD Cosigner Signature: Date (if applicable) CC: Dary Alvarez MD ~ Interventional cardiology attending addendum: Patient seen and examined for elective PCI of LAD today. No changes from above history and physical. Right groin is clean/dry/intact. We will proceed with elective PCI of LAD.
[2019-07-17 10:36] LABS: ACT Activated Clotting Time 164 sec (74-137)
--- NOTE | 2019-07-17 10:50 | CL.I_ITS ---
Patient Name: SIM LAGOS Study Date: 07/17/2019 Performing: Karri Cr MD Ht: 72.83 inches 185 cm : 1950 Wt: 176.37 lbs 80 kg Age: 69 Gender: male BSA: 2.04 PROCEDURE(S) PERFORMED [id number] W OR WO PTCA, SINGLE CORONARY ARTERY [id number], EACH ADD'L CORONARY ART, SAME MAJOR CLINICAL PROFILE AND CO-MORBIDITIES Indications: Stable Known CAD, New Onset Angina <= 2 months Heart Failure: None Stress/Imaging Stress/Image Study Performed: No Angina Classification Anginal Classification w/in 2 Weeks: CCS I CAD Presentations: Unstable angina. Comorbidities/Risk Factors: Hypertension Dyslipidemia Prior PCI Prior ND CONCLUSIONS Successful PTCA/NAILA mid LAD with a 3.0 x 38 Promus Synergy, post dilated in mid portion backwards wit h first a 3.0 and then a 3.5 x 8 NC Balloon; 75%-->0%, no dissection. Successful PTCA/NAILA Ostial/proximal LAD with a 3.5 x 12 Promus Synergy, post dilated with a 3.5 x 8 N C Balloon at 14 jane; 85%-->10%, No dissection. Did not want to attempt any additional post stent dil ation given concern of calcium and possibility of retrograde left main dissection. Successful PCI with PTCA to the ostial DIAG#1 with a 2.0 x 8 balloon; 90%-->40%, no dissection. CP c ompletely resolved. RECOMMENDATIONS Highly recommend quitting all tobacco products Follow up with primary material manager Risk factor modification ASA Indefinitley Plavix for at least 12 months Routine post interventional care Refer for Outpatient Cardiac Rehab Manual sheath removal per protocol Follow up with Dr. Cr Manual sheath removal as pt is too thin for Mynx closure. Medical management of diffusely diseased small DIAG#2 unless or until pt has recurrent anginal sympto ms. DESCRIPTION OF PROCEDURE The patient arrived to the procedure lab. The risks and benefits of the procedure as well as a full d escription of our services here and current unavailability of surgical backup were fully explained to the patient and/or their significant other prior to the catheterization. The Timeout was completed, verifying the correct patient and procedure. The patient's procedural site was prepped and draped in the usual fashion. Local anesthetic was given subcutaneously to right groin region with Lidocaine 2%. Using a modified Seldinger technique, arterial access was obtained via the right femoral artery, a 6 Fr 55cm sheath was inserted.. EBU 3.75 Guide catheter was inserted and engaged into the LCA. BMW Guide wire was advanced to the LAD. BMW Guide wire was inserted as a chandni wire in Circ Emerge 2.00x12 Balloon catheter was inserte d. PTCA balloon inflated at 8 atms for 11 secs. PTCA balloon inflated at 6 atms for 6 secs. PTCA ball oon inflated at 6 atms for 7 secs. Angiogram performed post balloon dilatation. Synergy 3.00x38 Drug Eluting stent was inserted. Angiogram performed post stent deployment. Synergy 3.50x12 Drug Eluting s tent was inserted. Angiogram performed post stent deployment. NC Euphora 3.5x8 Balloon catheter was i nserted. PTCA balloon inflated at 12 atms for 11 secs. PTCA balloon inflated at 12 atms for 7 secs. P TCA balloon inflated at 14 atms for 11 secs. Angiogram performed post balloon dilatation. NC emerge 3 .00x8 Balloon catheter was inserted. PTCA balloon inflated at 14 atms for 11 secs. PTCA balloon infla stormy at 14 atms for 13 secs. PTCA balloon inflated at 14 atms for 12 secs. PTCA balloon inflated at 14 atms for 10 secs. Angiogram performed post balloon dilatation. NC Euphora 3.5x8 Balloo n catheter was inserted. PTCA balloon inflated at 11 atms for 19 secs. PTCA balloon inflated at 14 at ms for 8 secs. PTCA balloon inflated at 14 atms for 8 secs. PTCA balloon inflated at 16 atms for 13 s ecs. Angiogram performed post balloon dilatation. BMW Guide wire was repositioned to the 1st Diagonal Emerge 2.00x8 Balloon catheter was inserted. PTCA balloon inflated at 8 atms for 7 secs. PTCA balloo n inflated at 8 atms for 25 secs. Angiogram performed post balloon dilatation. Emerge 2.00x8 Balloon catheter was inserted. PTCA balloon inflated at 8 atms for 11 secs. Emerge 2.00x8 Balloon catheter wa s inserted. Arterial sheath was exchanged for a 6 Fr Sheath. The arterial sheath was pulled and manu al compression applied until hemostasis is achieved. INTERVENTION INFORMATION LESION SITE: LAD (Mid) Lesion Complexity: High/C Pre Stenosis: 75 % Pre intervention DANIELA flow: 3 PROCEDURE: Drug Eluting Stent with pre and post dilatation Post Stenosis: 0 % Post intervention DANIELA flow: 3 Lesion Devices: Isbell .014 BMW [place] Straight 190cm Isbell .014 BMW [place] Straight 190cm Medtronic 6 Fr EBU3.75 100cm Guide Catheter Bryce Sci EMERGE MR 2.00x12 BALLOON Bryce Sci Synergy MR NAILA 3.00x38 Medtronic NC EUPHORA RX 3.5x08 BALLOON Bryce Sci NC EMERGE MR 3.00x08 BALLOON LESION SITE: LAD (Proximal) Lesion Complexity: High/C, lesion at bifurcation: No, thrombus present: No, lesion length: 12 mm, cul prit lesion: Yes Pre Stenosis: 85 % PROCEDURE: Drug Eluting Stent with pre and post dilatation Post Stenosis: 0 % Lesion Devices: Isbell .014 BMW [place] Straight 190cm Isbell .014 BMW [place] Straight 190cm Medtronic 6 Fr EBU3.75 100cm Guide Catheter Bryce Sci Synergy MR NAILA 3.50x12 Medtronic NC EUPHORA RX 3.5x08 BALLOON LESION SITE: 1st Diagonal (Ostial) Lesion Complexity: Non-High/Non-C, lesion at bifurcation: Yes, thrombus present: No, lesion length: 8 mm, culprit lesion: No PROCEDURE: Balloon Angioplasty Lesion Devices: Bryce Sci EMERGE MR 2.00x08 BALLOON COMPLICATIONS No Complications PROCEDURE MEDICATIONS Oxygen: 2 L/min via nasal cannula Heparin 6000 unit(s) IV 07/17/2019 09:40:02 Nitro 200 mcg IC 07/17/2019 09:47:44 Nitro 200 mcg IC 07/17/2019 09:47:44 Nitro 200 mcg IC 07/17/2019 10:10:19 IV Bolus: .9 NaCl 600 ml total 07/17/2019 09:40:07 SUMMARY OF HEMODYNAMIC DATA Time AIR REST ECG 08:47:28 AO 152/70 (99) SA 09:41:15 Signed By Karri Cr MD On 07/17/2019 10:50:19 Karri Cr MD
--- NOTE | 2019-07-17 12:06 | EKG12_ITS ---
Test Reason : POST PCI Blood Pressure : / mmHG Vent. Rate : 053 BPM Atrial Rate : 053 BPM P-R Int : 218 ms QRS Dur : 082 ms QT Int : 412 ms P-R-T Axes : 043 001 -30 degrees QTc Int : 386 ms Sinus bradycardia with 1st degree A-V block Nonspecific ST and T wave abnormality Abnormal ECG When compared with ECG of 19-JUN-2019 05:51, Criteria for Inferior infarct are no longer Present QT has shortened Confirmed by BRUCE BLACKMON, CARLITO ([id number]), make up editor FELIX KENNEDY ([id number]) on 07/28/2019 2:29:17 PM Referred By: Karri Cr Confirmed By:CARLITO BARRERA MD
[2019-07-17] MEDS: 0.9% Normal Saline 1,000 ML 150 ML IV (12:46)
--- NOTE | 2019-07-17 12:57 | CRPHASE1_ITS ---
Patient Communication Former Patient:: Phase I - Patient was seen during previous PCI intervention on 06/19/2019 PHII Cardiac Rehab Discussed with Patient:: Yes Guide to Cardiac Rehab Given to Patient:: Yes Cardiac Rehab Facility Choice List Given to Patient:: Yes Choice Program [facility] PHII:: Communication Given to CR, Refer to [facility] Baked And Graphite Inspector:: Karri Cr Refer Phase II Cardiac Rehab:: Yes Sessions:: 36 sessions - 3 days/wk, 12 weeks Risk Factors/Lifestyle Family History: Family History (Last Reviewed 07/03/19 @ 08:47 by Farzaneh Devi) Mother Thyroid disorder Father Heart disease Thyroid disorder Cardiac Rehabilitation Info Cardiac Rehabilitation Program Information: Cardiac Rehabilitation is important for patients like you who are recovering from a heart problem. Cardiac rehabilitation programs are recognized as integral to the continued care of the patient with coronary heart disease. The cardiac rehabilitation program is designed to optimize a patient's physical, psychological, and social functioning. Health director day care center work in cardiac rehabilitation programs and assist you with getting the treatments you need to get stronger and healthier - like exercise, healthy eating habits, and me dications. Cardiac rehabilitation has been show to help people with heart problems live longer and have better life enjoyment than people who do not go to cardiac rehabilitation. Please contact the Cardiac Rehabilitation Program at [facility] at in two weeks if you have not heard from them.
--- NOTE | 2019-07-17 12:59 | CRPH1.INSTRU ---
General Education CAD and cardiac anatomy and function:: Not instructed Explanation of diagnoses and procedures:: Not instructed Sign/Symptoms of LA:: Not instructed Antiplatelet therapy: Not instructed Proper use of NTG-SL: Not instructed Emergency procedures and activation of EMS: Not instructed Compliance of all prescribed medications: Not instructed - Patient was seen and instructed on 06/19/2019
[2019-07-17] MEDS: Gemfibrozil 600 MG Tablet PO (16:17)
[2019-07-17] MEDS: TICAGRELOR 90 MG TABLET PO (21:08)
[2019-07-17] MEDS: Ezetimibe 10 MG Tablet PO (21:10)
[2019-07-17] MEDS: Metoprolol Tartrate 25 MG Tablet 12.5 MG PO (21:12)
[2019-07-18] VITALS (14 sets, daily range): BP systolic 105–152; BP diastolic 52–95; PULSE 52–73; RESP 13–25; TEMP 36.4–37.5; O2SAT 94–97
[2019-07-18] MEDS: LORazepam 1 MG Tablet PO (00:46)
[2019-07-18 04:26] LABS: Hematocrit 33.5 % (40-54); Hemoglobin 11.1 g/dL (13.0-16.5); Mean Corp Hgb Conc 33.1 g/dL (32-36); Mean Corpuscular Hgb 30.7 pg (27.0-32.0); Mean Corpuscular Volume 92.5 fL (80-94); Mean Platelet Vol. 9.4 fl (6.2-12.0); Platelet Count 188 K/mm3 (150-450); RBC Distribution Width CV 12.4 % (11.6-14.6); RBC Distribution Width SD 42.1 fl (35.1-43.9); Red Blood Count 3.62 M/mm3 (4.6-6.2); White Blood Count 5.5 K/mm3 (4.4-11.0)
[2019-07-18 04:49] LABS: ALB/GLOB Ratio 0.9 RATIO (0.9-2.4); AST(SGOT) 21 U/L (15-37); Alanine Aminotransfer ALT/SGPT 17 U/L (16-61); Albumin, Serum 3.1 g/dL (3.2-5.0); Alkaline Phosphatase 75 U/L (45-117); Anion Gap 6 (5-15); BUN 19 mg/dL (7-18); BUN/Creat Ratio 17.1 RATIO (10-20); Calcium,Total 8.4 mg/dL (8.5-10.1); Chloride 109 mmol/L (98-107); Creatinine, Serum 1.11 mg/dL (0.70-1.30); EST Glomerular Filtration Rate 70 mL/min (>60); Est Glom Filt Rate - Afr Amer 85 mL/min (>60); Estimated Creatinine Clearance 72.98 ml/min; Globulin 3.3 g/dL (2.2-4.2); Glucose 119 mg/dL (74-106); Potassium 4.1 mmol/L (3.5-5.1); Protein, Total 6.4 g/dL (6.4-8.2); Sodium Level 141 mmol/L (136-145)
[2019-07-18] MEDS: Gemfibrozil 600 MG Tablet PO (06:44)
--- NOTE | 2019-07-18 07:37 | PCM.DC.CCA ---
Discharge Activity: Return to Normal Activity May shower in (days): 1 - No tub baths for 5 days May resume sexual activity in: 1-2 weeks Lifting Restrictions: Do not lift anything greater than 10 pounds for 3 days Call your doctor if your incision/area has: Continuous Slow Oozing, Sudden Increased Bleeding, Increased Pain/ Swelling, Increased Redness, Foul Smelling Discharge, Swelling at the incision site Call your doctor if you observe: Fever of 101 or Higher, Shortness of breath, Chest pain Remove Dressing in (days):: 1 Cleanse incision/area with: Soap & Water Additional Instructions: You will continue with Aspirin therapy. You will remain on Brilinta therapy for at least one year. If anyone asks you to stop your Brilinta, please call the [facility] Office first. You are scheduled for an office appointment with Dr. Cr on August 10, 2019 at 2:00 PM. If you have any questions or concerns please call the [facility] Office at [phone]. Allergies/Adverse Reactions: Allergies ibuprofen Allergy (Severe, Verified 06/30/19 19:13) Anaphylaxis Sulfa (Sulfonamide Antibiotics) Allergy (Verified 06/30/19 19:13) Rash Medications to take at Discharge RX: Albuterol IH (ProAir) [Proair Hfa] 2 puff INHALATION Q4H PRN PRN 06/18/19 RX: Escitalopram Oxalate [Lexapro] 10 mg PO DAILY 06/18/19 RX: Omeprazole 40 mg PO DAILY 06/18/19 RX: Aspirin E.C. [Ecotrin] 81 mg PO DAILY@0800 #90 tab 06/19/19 RX: Ezetimibe [Zetia] 10 mg PO QHS #90 tab 06/19/19 RX: Gemfibrozil [Lopid] 600 mg PO BIDAC #180 tab 06/19/19 RX: Losartan Potassium [Cozaar] 12.5 mg PO DAILY #90 tab 06/19/19 RX: Metoprolol Tartrate [Lopressor (beta nay)] 12.5 mg PO BID #180 tab 06/19/19 RX: Ticagrelor [Brilinta] 90 mg PO BID #180 tab 06/19/19 Primary Care Physician: Dary Alvarez MD [Primary Care Provider] - Test Results: Test results from this visit will be discussed in further detail at your follow-up appointment, if applicable. Please Follow Up With: Dr. Cr When: 08/10/2019 at 2:00 PM Proposed Discharge Date: 07/18/19 Cardiac Rehabilitation Info Cardiac Rehabilitation Program Information: Cardiac Rehabilitation is important for patients like you who are recovering from a heart problem. Cardiac rehabilitation programs are recognized as integral to the continued care of the patient with coronary heart disease. The cardiac rehabilitation program is designed to optimize a patient's physical, psychological, and social functioning. Health floor care specialist work in cardiac rehabilitation programs and assist you with getting the treatments you need to get stronger and healthier - like exercise, healthy eating habits, and medications. Cardiac rehabilitation has been show to help people with heart problems live longer and have better life enjoyment than people who do not go to cardiac rehabilitation. Please contact the Cardiac Rehabilitation Program at [facility] at in two weeks if you have not heard from them.
[2019-07-18] MEDS: Losartan Potassium 25 MG Tablet 12.5 MG PO (08:41)
[2019-07-18] MEDS: Escitalopram Oxalate 10 MG Tablet PO (08:41)
[2019-07-18] MEDS: Pantoprazole Sodium 40 MG Tablet PO (08:41)
[2019-07-18] MEDS: Metoprolol Tartrate 25 MG Tablet 12.5 MG PO (08:41)
[2019-07-18] MEDS: Aspirin E.C. 81 MG Tablet PO (08:42)
[2019-07-18] MEDS: TICAGRELOR 90 MG TABLET PO (08:42)
--- NOTE | 2019-07-18 09:03 | PCM.PN.CARD ---
Subjectve: Patient doing very well this morning, no chest pain. Feels much better after angioplasty. Right groin is clean/dry/intact, no thrills, bruits or hematoma. Telemetry negative. Hemoglobin and creatinine are within nominal limits. Objective: Vital Signs Temp Pulse Resp BP Pulse Ox 97.5 F L 72 19 H 141/95 H 95 07/18/19 08:00 07/18/19 08:41 07/18/19 08:00 07/18/19 08:41 07/18/19 08:00 Oxygen Delivery Method Room Air Weight: 179 lb 0.246 oz Body Mass Index (BMI) 23.6 Intake and Output for Last 24 Hours 07/16/19 07/17/19 07/18/19 23:59 23:59 23:59 Intake Total 2625 / 2625 580 / 580 Output Total 1755 / 1755 600 / 600 Balance 870 / 870 -20 / -20 General: Awake, Alert, Oriented x 3 HEENT: PERRL, EOMI, Sclera Non Icteric Neck: Supple, Good ROM, No Lymph Node Enlargement Lungs: Clear to auscultation Cardiovascular: Regular Rhythm, Normal S1, Normal S2, No Murmurs, No Rubs, No Gallops Vascular: No Carotid Bruits, Normal Femoral Pulses, Normal Radial Pulses, Normal Dorsalis Pedal Pulse, Normal Posterior Tibial Pulses Abdomen: Bowel Sounds Present, Soft, Non Tender, No HSM, No Organomegaly Extremities: No Cyanosis, No Clubbing, No edema Neurological: No Focal Motor or Sensory Deficit 07/18/19 04:15: WBC 5.5, RBC 3.62 L, Hgb 11.1 L, Hct 33.5 L, MCV 92.5, MCH 30.7, MCHC 33.1, Plt Count 188, MPV 9.4 07/18/19 04:15: Sodium 141, Potassium 4.1, Chloride 109 H, Carbon Dioxide 26.0, Anion Gap 6, BUN 19 H, Creatinine 1.11, Est GFR (MDRD) Af Amer 85, Est GFR (MDRD) Non-Af 70, BUN/Creatinine Ratio 17.1, Glucose 119 H, Calcium 8.4 L, Total Bilirubin 0.30 Rhythm: EKG: ECHO: Stress Test: Cardiac Cath: PCI: CT Surgery: Holter monitor: EPS: PPM: CXR: Chest CT Scan: Medical Necessity - Tobacco Use Smoking Status: Former smoker Assessment/Plan 1. Coronary artery disease: Patient underwent successful elective angioplasty and stenting of his proximal mid LAD receiving a 3.0X 38 Promus stent followed immediately upstream with a 3.5X 12 Promus stent, postdilated to 3.5 mm with an excellent result. In addition he underwent balloon angioplasty only of the ostium of the diagonal #1 due to plaque shift. At the end of the procedure the patient had DANIELA-3 flow and had essentially no chest pain. Overnight he has done very well, no further chest pain. Telemetry is been negative. His right groin is clean/dry/intact. I recommend the patient continue baby aspirin, Brilinta, and hypertensive therapy as outlined in the [facility]. The patient will be referred to cardiac rehab where he will proceed for 12 weeks time. The patient is any exertional anginal symptoms we can consider a stress test to evaluate his diagonal #2, or his nondominant right coronary artery which has a stenosis and it was left for medical management. 2. Hyperlipidemia: Continue antilipid therapy. Repeat lipid profile in 4 weeks time. 3. Patient be discharged home and follow-up with Dr. Cr going forward. Thank you very much for the opportunity to participate in the cardiac care of your patient. Code Visit Inpatient E&M: 34795 Subs Hosp L2
== END 2019-07-18 09:15 | disposition home or self-care (01) ==
LOC: CLSP 08:00 → ICU 09:42
PROVIDERS: Family Provider Internal Medicine; PCP Internal Medicine; Referring Provider Internal Medicine Cardiovascular Disease; Visit Provider Internal Medicine Cardiovascular Disease
DX: I25.110 Atherosclerotic heart disease of native coronary artery with unstable angina pectoris (principal); E78.5 Hyperlipidemia, unspecified; I25.2 Old myocardial infarction; I12.9 Hypertensive chronic kidney disease with stage 1 through stage 4 chronic kidney disease, or unspecified chronic kidney disease; N18.3 Chronic kidney disease, stage 3 (moderate); J45.909 Unspecified asthma, uncomplicated; F41.9 Anxiety disorder, unspecified; F32.9 Major depressive disorder, single episode, unspecified; I73.9 Peripheral vascular disease, unspecified; Z95.5 Presence of coronary angioplasty implant and graft; Z79.82 Long term (current) use of aspirin; Z79.899 Other long term (current) drug therapy; Z87.891 Personal history of nicotine dependence; Z79.51 Long term (current) use of inhaled steroids
CPT/HCPCS: 80053; 85027; 85347; 92921; 92928; 93005; J7030; J7040; Q9967; C1725; C1769; C1874; C1887; C1894; C9600

== ENCOUNTER → 2019-08-01 | Outpatient (CLI) | payer MEDICARE, SELFPAY ==
[2019-06-17 18:13] VITALS: BMI 24.6
[2019-06-19 08:23] VITALS: BMI 22.4
[2019-07-17 12:08] VITALS: BMI 23.6
--- NOTE | 2019-08-01 12:21 | CR.ITP_ITS ---
General Information - General Information Admitting Diagnosis: PCI WITH STENT Special Needs: NONE Oxygen: NONE - Education/Goals Barriers to Learning: None Individual Counseling: Initial Assessment: Abnormal Cholesterol Levels, Hypertension, Stress, Family History of Heart Disease (under 65 years) Cardiac Rehabilitation Goals: 1. Maintain the individual as the primary focus of care. 2. To improve the patient's quality of life. 3. Identification of cardiac risk factors and provide cardiac risk factor management. 4. Enhance the psychosocial status of the patient. 5. Reconditioning enough to allow the patient to resume customary activities. 6. Control symptoms of cardiac disease Scale for measuring improvement of personal goals: Enter appropriate number in Comments. 2 = Unchanged. 3 = Slightly Better. 4 = Moderate Improvement. 5 = Met my Goal Personal Goals: Initial Assessment: Other goal: - GET BACK TO FULL STRENGHT WORKOUT Exercise - Initial Assessment - Visit Date of Eval: 08/01/19 - Stages of Change Stages of Change:: Action - Physician Prescribed Exercise Modalities: Treadmill, Biodyne, Rower, Airdyne, NuStep, SciFit Frequency (days/week): 3x/week for 12 weeks [36 sessions] Intensity: 60-80% age predicted maximum heart rate reserve Target Heart Rate:: 99-130 - Hypertension Do any of the following apply?: Yes, Medication - LOPRESSOR Resting Blood Pressure:: 94/66 - Intervention Home Exercise/Activity Goal:: Sitting Time <3 hrs/day - Education Goals:: Warm-up, RPE LELA Scale, S/S, Safe Exercise, Self-Monitoring - Exercise Program Goals Exercise Program Goals: Aerobic Activity >30 min, B/P <130/80 Nutrition - Initial Assessment - Program Goals Nutrition Program Goals: LDL <70. Total Cholesterol <200. HDL >45. Triglycerides <150. HgbA1C <7%. BMI <25 - Stages of Change Stages of Change:: Action - Lipids Total Cholesterol (mg/dL) Goal = less than 200 mg/dL: 243 HDL Cholesterol (mg/dL) Goal = less than 45 mg/dL: 38 LDL Cholesterol (mg/dL) Goal = less than 70 mg/dL: 184 Triglycerides (mg/dL) Goal = less than 150 mg/dL: 106 Lipid Medication: YES - Diabetes Diabetes:: No - Weight Management Height: 6 ft 1 in Weight:: 170 lb - Intervention Referral to dietitian:: No Referral to Diabetic Clinic:: No Will attend diet classes:: Yes - CR CLASSES Tobacco - Initial Assessment - Program Goals Tobacco Program Goals: Complete smoking cessation. Attend education classes. Improve Knowledge Test score - Stage of Change Stages of Change:: Action - Learning Barriers Learning Barriers: Ready to Learn - Family Support Do you have family support?: Yes - SUPPORT PERSON - Tobacco Use Tobacco Use: Non-smoker How long ago did you quit using tobacco products?: Greater than or equal to 6 months ago Years Smokin - Intervention Smoking Cessation Referral:: No Individual Education/Counseling:: Yes - CR CLASSES Education Schedule Given:: Yes - Education Attended class for:: Treating Heart Disease, How The Heart Works, What it means to have Heart Disease, How Coronary Artery Disease is Diagnosed, Heart Procedures, What Heart Medications Do, Risk Factors & Modifications, Living an Active Life, Nutrition, Emotions & Heart Disease, Stress Management & Relaxation, Sleep Disorders & Heart Disease Psychosocial - Initial Assess - Target Goals Target Goals: Assess presence or absence of depression. Using a valid screening tool, maximizes coping skills. Positive support system - Stages of Change Stages of Change:: Action - Psychosocial Test Tool Used:: HANDS Depression Questionnaire - Intervention PS - Interventions: Yes Attend Stress Management Classes - CR CLASSES, Yes Uses Stress Management Skills - CR CLASSES, No Referral to Mental Health, No Referral to [facility] Case Management, No Referral to Physician - Education Gave educational materials for:: Coping techniques, Signs & symptoms of depression, Stress management, Relaxation techniques - PT INFORMED OF [facility] ON- LINE EDUCATION MATERIAL - Patient/Program Goal Preventative Medication(s):: Aspirin, Beta nay, Statin/lipid - BRILINTA - Assistive Devices Assistive Devices:: None Fall Risk Assessed:: No Patient Health Questionnaire Initial Assessment 1. Little interest or pleasure in doing things: Several days 2. Feeling down, depressed, or hopeless: Several days 3. Trouble falling or staying asleep, or sleeping too much: Not at all 4. Feeling tired or having little energy: Several days 5. Poor appetite or overeating: Several days 6. Feeling bad about yourself -- or that you are a failure or have let yourself or your family down: Not at all 7. Trouble concentrating on things, such as reading the newspaper or watching television: Not at all 8. Moving or speaking so slowly that other people could have noticed. Or the opposite - being so fidgety or restless that you have been moving around a lot more than usual: Not at all 9. Thoughts that you would be better off , or of hurting yourself in some way: Not at all How difficult have these problems made it for you to do your work, take care of things at home, or get along with other people?: Somewhat difficult Total Score: 4 PARK-Q SV Test - Statements CAD is a disease of the arteries in the heart: False Examples of risk factors for heart disease: True Angina is chest pain or discomfort: True The benefits of resistance training include: True Eating more meat and dairy products: False Anti-platelet medications such as aspirin are important: True The only effective way to manage stress: False An exercise warm-up slowly increases heart rate: True Prepared, processed foods usually have high sodium: True Depression is common after a heart attack: True The statin medications lower cholesterol: True To control blood pressure, lower the amount of sodium: True If someone gets chest discomfort during walking: False Transfats are partially hydrogenated vegetable oils: True Sleep apnea that is not treated increases the risk: False To control cholesterol, one should become a vegetarian: False Someone knows if he/she is exercising at the right level: True Diabetes cannot be prevented with exercise & health eating: False Stress is a large risk for heart attack: True A diet that can help lower blood pressure is rich in: True - Total Score Total Correct Responses: 20 Self-Efficacy Initial Assessment We would like to know how confident you are in doing certain activities. Please select your confidence level for:: Select your confidence level for the raegan osborn using the scale 1-10 where 1 is not at all confident and 10 is totally confident. Your score is the average of all 6 responses. Fatigue: How confident are you that you can keep the fatigue caused by your disease from interfering with the things you want to do? Select Number: 5 Physical Discomfort or Pain: How confident are you that you can keep the physical discomfort or pain of your disease from interfering with the things you want to do? Select Number: 5 Emotional Distress: How confident are you that you can keep the emotional distress caused by your disease from interfering with the things you want to do? Select Number: 5 Other Symptoms or Health Problems: How confident are you that you can keep other symptoms or health problems from interfering with the things you want to do? Select Number: 5 Different Tasks and Activities: How confident are you that you can do the different tasks and activities needed to manage your health condition so as to reduce your need to see a doctor? Select Number: 10 Medication: How confident are you that you can do things other than just taking medication to reduce how much your illness affects your everyday life? Select Number: 10 Total Score:: 6 Nutrition Survey - Nutrition Survey Instructions Scoring Instructions: Scoring is as follows: Yes = 1 points. No = 0 point. Patient score that is >/=12 is considered to be at potential nutritional risk and could benefit from a referral to a registered dietitian. - Nutrition Survey Initial Have you lost >10 lbs over the past 2 months without trying?: No Are you following a special diet at home for diabetes, low fat, or low salt?: Yes Are you interested in meeting with a dietitian for help understanding your diet?: No Do you eat less than 3 meals a day?: No Do you eat fatty meats (fajardo, sausage, ribs, etc), fried foods, desserts, large amounts of salad dressings, margarine, butter, or cheese most days?: No Do you have food allergies? [Enter types in comment field]: No Do you eat in restaurants more than 3 times a week?: No Do you season food with salt, seasoning salt, or garlic salt?: No Do you used canned, boxed, frozen meals, or soups, seasoning packets?: Yes Total Score:: 2
--- NOTE | 2019-08-01 12:23 | PCM.CR.HP2 ---
CR - History & Physical - General Arrival date:: 08/01/19 Arrival time:: 11:50 Date of Referral:: 07/27/19 Date of CR Evaluation:: 08/01/19 Referring Physician: DR SIMPSON Primary Diagnosis: GABRIELLE OLGUIN - History of Present Cardiac Event Onset Date: Enter Onset Date of cardiac illnesses in Comment field below Current stable Angina Pectoris:: No Acute Myocardial Infarction within 12 months:: Yes - MINIMAL Coronary Artery Bypass Graft:: No Heart valve replacement or repair:: No PTCA or coronary stenting:: Yes - STENT X3 Heart or Heart-Lung Transplant:: No Heart Failure EF <35%:: No - EF 55% Type of Symptoms:: ANGINA -BURNING Interventions with present event:: STENT X3 Were there any complications?: NONE - Medications Home Medications: Ambulatory Orders Medication Instructions Recorded Albuterol IH (ProAir) [Proair Hfa] 2 puff INHALATION Q4H PRN PRN 06/18/19 Escitalopram Oxalate [Lexapro] 10 mg PO DAILY 06/18/19 Aspirin E.C. [Ecotrin] 81 mg PO DAILY@0800 #90 tab 06/19/19 Ezetimibe [Zetia] 10 mg PO QHS #90 tab 06/19/19 Gemfibrozil [Lopid] 600 mg PO BIDAC #180 tab 06/19/19 Losartan Potassium [Cozaar] 12.5 mg PO DAILY #90 tab 06/19/19 Metoprolol Tartrate [Lopressor 12.5 mg PO BID #180 tab 06/19/19 (beta nay)] Ticagrelor [Brilinta] 90 mg PO BID #180 tab 06/19/19 - Allergies Allergies/Adverse Reactions: Allergies ibuprofen Allergy (Severe, Verified 06/30/19 19:13) Anaphylaxis Sulfa (Sulfonamide Antibiotics) Allergy (Verified 06/30/19 19:13) Rash - Sleep Disorder Evaluation Hx of Sleep Apnea: No Do you snore loudly (louder than talking or can be heard through closed doors)?: No Do you often feel tired/ fatigued/ sleepy during daytime?: No Has anyone observed you stop breathing during sleep?: No History of Hypertension (for STOP score): Yes STOP Results: Negative Advanced Directives - Advanced Directives 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 DNR Order?:: No Past Medical History - Past Medical Illness Medical History: Past Medical History (Last Reviewed 07/03/19 @ 08:47 by Farzaneh Dvei) Acute ST elevation myocardial infarction (STEMI) of posterior wall (Acute) I21.29 Asthma (Chronic) J45.909 HTN (hypertension) (Chronic) I10 HLD (hyperlipidemia) (Chronic) E78.5 Former smoker, stopped smoking in distant past (Chronic) Z87.891 quit 1998 Family history of ASCVD (Chronic) Z82.49 father had bypass surgery at 72 YOA Chronic renal failure, stage 3 (moderate) (Chronic) N18.3 - Past Surgical History Surgical History: Past Surgical History (Last Updated 07/19/19 @ 10:26 by Farzaneh Devi) Stented coronary artery (Chronic) Onset Date: 07/17/19 Z95.5 06/19/19:Triple vessel CAD of the LAD, LCX and OM Successful PTCA/NAILA proximal LCX with export assistance, utilizing a 3.0 x 20 Promus Stent; Successful PTCA/NAILA of OM#1 with a 2.5 x 38 Promus Synergy. To have staged procedure in approx 3 weeks of LAD 07/17/2019:Successful PTCA/NAILA mid LAD with a 3.0 x 38 Promus Synergy, post dilated in mid portion backwards with first a 3.0 and then a 3.5 x 8 NC Balloon; 75%-->0%, no dissection. Successful PTCA/NAILA Ostial/proximal LAD with a 3.5 x 12 Promus Synergy, post dilated with a 3.5 x 8 NC Balloon at 14 jane; 85%-->10%, No dissection. Did not want to attempt any additional post stent dilation given concern of calcium and possibility of retrograde left main dissection. Successful PCI with PTCA to the ostial DIAG#1 with a 2.0 x 8 balloon; 90%-->40%, no dissection. CP completely resolved. Surgical History: no surgical history - Family History Summary Family History: Family History (Last Reviewed 07/03/19 @ 08:47 by Farzaneh Devi) Mother Thyroid disorder Father Heart disease Thyroid disorder Social History - Smoking History Smoking Status: Former smoker - Alcohol Use Alcohol Usage: Yes - ONCE A MONTH - Substance Abuse Hx Substance Use: No - Occupation Occupation (List type of work in comments):: Retired - Hobbies, Recreation, Social Activities Hobbies: Other - MEDIATION, WORKING OUT, ALL SPORTS Recreational Activities: I am able to engage in most, but not all activities Social Environment - Status Marital Status: Single - Current Living Arrangements Living Environment:: Alone - Children How many children do you have?: 4 Do any of your children live nearby?: Yes - Safety Do you feel safe in your surroundings?: Yes - Assistance Do you need any assistance at home?: NONE Review of Systems - Review of Systems Hints: Right click = Denies (Slash). Left click = Reports ([place]) Review of Present Symptoms: Reports: Dizziness/Lightheadedness - UPON STANDING, Fatigue - TIREDNESS WITH THIS MEDICATION, Heart Arrhythmia/Irregularities - A FIB DURING HOSPITAL STAY, Appetite - Normal, Appetite - Special Diet - FISH,CHICKEN, AND VEGGIES, Sleep - Normal. Denies: Shortness of Breath at Rest, Shortness of Breath with Exertion, PVD, Operative Discomfort, Angina, Wound Healing - Pain Is Patient Pain Free?: Yes Risk Factor Assessment - Vital Signs Temperature: 98.6 F Respiratory Rate: 12 Pulse Ox: 98 Blood Pressure: 94/66 Nailbeds:: PINK - Pulse Pulse Rate: 53 Pulse Rhythm: Regular - Hypertension How long have you been treated?: 10 YEARS On medication(s)?: LOSARTAN, METOPROLOL Blood Pressure Sitting - Left Arm: 94/66 - Blood Cholesterol/Lipids Total Cholesterol (mg/dL) Goal = less than 200 mg/dL: 243 HDL Cholesterol (mg/dL) Goal = less than 40 mg/dL: 38 LDL Cholesterol (mg/dL) Goal = less than 70 mg/dL: 184 Triglycerides (mg/dL) Goal = less than 150 mg/dL: 106 - Diabetes Nutrition Referral for Diabetes: No - Obesity Height: 6 ft 1 in Weight:: 170 lb Weight in Pounds: 170.0 lbs Weight Source: Stated by Patient Body Mass Index (BMI): 22.4 Nutritional Referral for Obesity: No - Physical Inactivity Physical Inactivity: None - Risk Stratification Risk Guidelines: Lowest Risk: Risk Factor for Smoking, Risk Factor for Diabetes, Risk Factor for Obesity, Risk Factor for Hypertension, Risk Factor for Sedentary Lifestyle, Moderate Risk: Risk Factor for Dyslipidemia, Risk Factor for Depression - For Smoking Smoking Risk Guidelines: Smoking Low Risk: None or quit greater than 6 months ago. Smoking Moderate Risk: Smoker or quit 6 months or less ago. Smoking High Risk: Smoker - For Dyslipidemia Dyslipidemia Risk Guidelines: Low Risk: Moderate Risk: High Risk: 15-25% fat 25.1-29% fat >/= 30% fat. <7% sat fat 7-9% sat fat >9% sat fat. <150 mg chol 150-299 mg chol >/= 300 mg chol. LDL <100 LDL 100-129 LDL >/= 130. Chol/HDL ratio <5.0 Chol/HDL ratio 5.0-6.0 Chol/HDL ratio >6.0. Triglycerides <100 Triglycerides 100-149 Triglycerides >/= 150 - For Diabetes Mellitus Diabetes Risk Guidelines: Diabetes Low Risk: HgA1c <6.5% and/or FBG <120. Diabetes Moderate Risk: HgA1c 6.6-7.9% and/or FBG 120-180. Diabetes High Risk: HgA1c >/= 8% and/or FBG >180 - For Obesity/Overweight Obesity/Overweight Risk Guidelines: Obesity Low Risk: BMI <25.0. Obesity Moderate Risk: BMI 25-29.9. Obesity High Risk: BMI >/= 30.0 - For Hypertension Hypertension Risk Guidelines: Hypertension Low Risk: Systolic <120 and Diastolic <80. Hypertension Moderate Risk: Systolic 120-139 and Diastolic 80-89. Hypertension High Risk: Systolic >/= 140 and Diastolic >/= 90 - For Sedentary Lifestyle Sedentary Lifestyle Risk Guidelines: Sedentary Lifestyle Low Risk: >/= 1,500 kcal/week. Sedentary Lifestyle Moderate Risk: 700-1,499 kcal/week. Sedentary Lifestyle High Risk: < 700 kcal/week - For Depression Depression Risk Guidelines: Depression Low Risk: Not clinically depressed. Depression Moderate Risk: Mildly depressed. Depression High Risk: Clinically depressed - Family History Family History: Family History (Last Reviewed 07/03/19 @ 08:47 by Farzaneh Devi) Mother Thyroid disorder Father Heart disease Thyroid disorder Motivation - Motivation to Participate On a scale of 1 to 10, how prepared are you to commit to attending program?: 5 What do you see as barriers to successfully being able to complete the program?: FINANCIAL What do you see as the benefits of succesfully completing the program? In other words, what do you hope to get out of participating in the program?: HEART KNOWLEDGE Are there issues you are dealing with that will interfere with completing the program?: FINANCIAL Do you have a spouse or signficant other, family or friends who will help support you to complete the program?: SUPPORT PERSON
[2019-08-01 12:47] VITALS: BP 94/66; PULSE 53; RESP 12; TEMP 37; O2SAT 98; BMI 22.4
[2019-08-01 13:15] VITALS: BP 94/66
== END | disposition home or self-care (01) ==
LOC: CR 11:38
PROVIDERS: Family Provider Internal Medicine; PCP Internal Medicine; Referring Provider Internal Medicine Cardiovascular Disease; Visit Provider Internal Medicine Cardiovascular Disease
DX: Z95.5 Presence of coronary angioplasty implant and graft (principal)

== ENCOUNTER 2019-08-07 06:58 | Outpatient (RCR) | payer MEDICARE, SELFPAY ==
[2019-06-19 08:23] VITALS: BMI 22.4
[2019-08-01 12:47] VITALS: BMI 22.4
== END 2019-08-07 23:59 ==
LOC: CR 06:58
PROVIDERS: Family Provider Internal Medicine; PCP Internal Medicine; Referring Provider Internal Medicine Cardiovascular Disease; Visit Provider Internal Medicine Cardiovascular Disease
DX: I21.29 ST elevation (STEMI) myocardial infarction involving other sites (principal)
CPT/HCPCS: 93798

== ENCOUNTER → 2019-08-14 | Outpatient (CLI) | payer MEDICARE, SELFPAY ==
[2019-06-19 08:23] VITALS: BMI 22.4
[2019-08-10 13:51] VITALS: BMI 23.2
[2019-08-14 08:59] LABS: AST(SGOT) 20 U/L (15-37); Alanine Aminotransfer ALT/SGPT 16 U/L (16-61); Albumin, Serum 3.9 g/dL (3.2-5.0); Alkaline Phosphatase 86 U/L (45-117); Bilirubin, Direct 0.12 mg/dL (0.00-0.30); Cholesterol 168 mg/dL (200); Globulin 3.8 g/dL (2.2-4.2); High Density Lipoprotein 57 mg/dL; Protein, Total 7.7 g/dL (6.4-8.2); Triglycerides 127 mg/dL; Very Low Density Lipoprotein 25 mg/dL (5-40)
== END | disposition home or self-care (01) ==
LOC: LAB 07:43
PROVIDERS: Family Provider Internal Medicine; PCP Internal Medicine; Referring Provider Internal Medicine Cardiovascular Disease; Visit Provider Internal Medicine Cardiovascular Disease
DX: E78.5 Hyperlipidemia, unspecified (principal); I21.29 ST elevation (STEMI) myocardial infarction involving other sites
CPT/HCPCS: 36415; 80061; 80076; 93798

== ENCOUNTER 2019-08-23 11:30 | Outpatient (RCR) | payer MEDICARE, SELFPAY ==
[2019-06-19 08:23] VITALS: BMI 22.4
[2019-08-01 12:47] VITALS: BMI 22.4
== END 2019-09-07 23:59 ==
LOC: CR 11:30
PROVIDERS: Family Provider Internal Medicine; PCP Internal Medicine; Referring Provider Internal Medicine Cardiovascular Disease; Visit Provider Internal Medicine Cardiovascular Disease
DX: I21.29 ST elevation (STEMI) myocardial infarction involving other sites (principal)
CPT/HCPCS: 93798

== ENCOUNTER → 2019-11-20 09:50 | Outpatient (CLI) | payer MEDICARE, SELFPAY ==
[2019-06-19 08:23] VITALS: BMI 22.4
[2019-08-10 13:51] VITALS: BMI 23.2
--- NOTE | 2019-11-20 10:00 | ECHOD_ITS ---
Reason For Study: CAD/ASHD Procedure This was a 2D Doppler, Color Flow transthoracic echocardiogram. Exam performed in department. Left Ventricle Normal size and thickness. The estimated ejection fraction is 65 %. Stage 1 diastolic dysfunction. No regional wall motion abnormalities noted. Right Ventricle Normal size and thickness. Normal systolic function. Atria Normal left atrium. Normal right atrium. Normal atrial septum. Mitral Valve The mitral valve is structurally normal. No prolapse or stenosis seen. Trivial mitral valve insufficiency. Tricuspid Valve Normal tricuspid valve. Trivial tricuspid valve insufficiency. Right ventricular systolic pressure estimated to be 26 mmHg. Aortic Valve Normal aortic valve. Trisinus/trileaflet aortic valve. Pulmonic Valve Normal pulmonic valve. Great Vessels Normal aortic root. Normal arch. Normal inferior vena cava. Inferior vena cava collapse with sniff. Pericardium/Pleural No pericardial effusion. MMode/2D Measurements & Calculations LVIDd: 4.5 cm IVSd: 1.2 cm LA dimension: 3.6 cm LVIDs: 2.6 cm LVPWd: 1.0 cm RVDd: 4.4 cm FS: 42.1 % LAV(MOD-bp): 59.4 ml LA A4 area: 16.4 cm2 RA A4 area: 12.8 cm2 LAV(MOD-bp) Indexed: 29.2 ml/m2 LAV(MOD-sp2): 66.9 ml LAV(MOD-sp4): 45.0 ml Time Measurements MV dec time: 0.28 sec Doppler Measurements & Calculations MV E max ronal: 75.1 cm/sec Lat Peak E' Ronal: 11.7 cm/sec Med Peak E' Ronal: 10.2 cm/sec MV A max ronal: 74.7 cm/sec E/E' lat: 6.4 E/E' med: 7.4 MV E/A: 1.0 MV V2 max: 82.4 cm/sec MV P1/2t max ronal: 82.4 cm/sec Ao V2 max: 107.0 cm/sec MV max P.7 mmHg MV P1/2t: 107.8 msec Ao max P.6 mmHg MV V2 mean: 43.4 cm/sec MV dec slope: 223.9 cm/sec2 Ao V2 mean: 69.0 cm/sec MV mean P.90 mmHg MVA(P1/2t): 2.0 cm2 Ao mean P.2 mmHg MV V2 VTI: 32.4 cm Ao V2 VTI: 22.5 cm LV V1 max: 80.8 cm/sec PA V2 max: 74.5 cm/sec TR max ronal: 229.8 cm/sec LV V1 max P.6 mmHg TR max P.1 mmHg LV V1 mean P.2 mmHg LV V1 mean: 50.8 cm/sec LV V1 VTI: 17.3 cm Interpretation Summary The estimated ejection fraction is 65 %. Stage 1 diastolic dysfunction. Trivial mitral valve insufficiency. Trivial tricuspid valve insufficiency. Right ventricular systolic pressure estimated to be 26 mmHg. Compared to echo report dated 06/19/2019, inferior apical hypokinesis has resolved, patient now appears to have normal LV function. Ordering Physician: Karri Cr Referring Physician: Karri Cr Performed By: Jesus Christianson [facility]
== END ==
PROVIDERS: Family Provider Internal Medicine; PCP Internal Medicine; Referring Provider Internal Medicine Cardiovascular Disease; Visit Provider Internal Medicine Cardiovascular Disease
DX: I25.10 Atherosclerotic heart disease of native coronary artery without angina pectoris (principal); I25.2 Old myocardial infarction
CPT/HCPCS: 93306

== ENCOUNTER → 2020-05-06 | Outpatient (CLI) | payer MEDICARE, SELFPAY ==
[2019-06-19 08:23] VITALS: BMI 22.4
[2020-03-01 10:07] VITALS: BMI 23.1
[2020-05-06 10:19] LABS: AST(SGOT) 24 U/L (15-37); Alanine Aminotransfer ALT/SGPT 20 U/L (16-61); Alkaline Phosphatase 90 U/L (45-117); Bilirubin, Direct 0.11 mg/dL (0.00-0.30); Cholesterol 222 mg/dL (200); Globulin 3.9 g/dL (2.2-4.2); High Density Lipoprotein 58 mg/dL; Protein, Total 7.9 g/dL (6.4-8.2); Triglycerides 79 mg/dL; Very Low Density Lipoprotein 16 mg/dL (5-40)
== END | disposition home or self-care (01) ==
LOC: LAB 08:04
PROVIDERS: PCP Internal Medicine; Referring Provider Internal Medicine Cardiovascular Disease; Visit Provider Internal Medicine Cardiovascular Disease
DX: E78.00 Pure hypercholesterolemia, unspecified (principal); E78.5 Hyperlipidemia, unspecified
CPT/HCPCS: 36415; 80061; 80076

== ENCOUNTER 2020-06-22 19:06 | Emergency (ER) | payer MEDICARE, SELFPAY ==
[2019-06-19 08:23] VITALS: BMI 22.4
[2020-03-01 10:07] VITALS: BMI 23.1
[2020-06-22 19:06] VITALS: BP 179/101; PULSE 66; RESP 16; TEMP 36.2; O2SAT 97; BMI 23.9
--- NOTE | 2020-06-22 20:39 | ED.VISSUMM ---
- ER Visit Summary Date of Service: 06/22/20 Chief Complaint: Bat bite History of Present Illness: The patient is a 70 M who woke up with a bat in his room. He noticed a scratch on his right forearm after removing the bat from his house. Physical Examination: Patient has a linear abrasion to his right mid forearm Test Results: None indicated Emergency Department Course and Treatment: Tetanus updated. He was treated with rabies immunoglobulin and vaccination. Follow-up in days 3, 7, and 14 for vaccinations. Treatment Plan: As above Disposition: Discharge Impression: Bat bite right forearm This note was generated with [employer] dictation software. It may contain incorrect words, spelling, and punctuation that were not noted in review of the chart prior to signing ED Disposition - Plan for ED Patient: Referrals: Dary Alvarez MD [Primary Care Provider] -
--- NOTE | 2020-06-22 20:40 | ED.DEP ---
ED Disposition - Plan for ED Patient: Instructions: Rabies Virus Strain PM-[id number] antigen (Propiolactone Inactivated)... Referrals: Dary Alvarez MD [Primary Care Provider] - Additional Instructions: follow up as advised in the ED, days 3, 7, and 14
[2020-06-22] MEDS: Rabies Vaccine,Human Diploid 2.5 UNITS Vial IM (21:52)
[2020-06-22] MEDS: Diphth,Pertuss(Acell),Tet Vac 0.5 ML Vial IM (21:55)
[2020-06-22 22:30] VITALS: BP 184/97
== END 2020-06-22 22:32 | disposition home or self-care (01) ==
LOC: ED 20:56
PROVIDERS: Emergency Provider Emergency Medicine; PCP Internal Medicine
DX: S50.871A Other superficial bite of right forearm, initial encounter (principal); Z23 Encounter for immunization; W55.81XA Bitten by other mammals, initial encounter; Y93.84 Activity, sleeping; Y92.003 Bedroom of unspecified non-institutional (private) residence as the place of occurrence of the external cause; Y99.8 Other external cause status
CPT/HCPCS: 90375; 90675; 90715; 99282

== ENCOUNTER 2020-06-25 04:56 | Outpatient (CLI) | payer MEDICARE, SELFPAY ==
[2019-06-19 08:23] VITALS: BMI 22.4
[2020-06-25 05:27] VITALS: BMI 23.1
[2020-06-25] MEDS: Rabies Vaccine,Human Diploid 2.5 UNITS Vial IM (05:27)
== END 2020-06-25 05:43 | disposition home or self-care (01) ==
PROVIDERS: PCP Internal Medicine; Visit Provider Emergency Medicine
DX: Z23 Encounter for immunization (principal)
CPT/HCPCS: 90471; 90675

== ENCOUNTER → 2020-06-29 19:00 | Outpatient (CLI) | payer MEDICARE, SELFPAY ==
[2019-06-19 08:23] VITALS: BMI 22.4
[2020-06-25 05:27] VITALS: BMI 23.1
[2020-06-29 18:56] VITALS: BP 140/90; PULSE 62; RESP 16; TEMP 36.9; O2SAT 98; BMI 23.1
[2020-06-29 19:16] VITALS: BMI 23.1
[2020-06-29] MEDS: Rabies Vaccine,Human Diploid 2.5 UNITS Vial IM (19:24)
[2020-06-29 19:27] VITALS: BMI 23.1
--- NOTE | 2020-06-29 20:25 | ED.RN ---
SHOT TIME COMPLETED. NO S/S OF ANY REACTION TO LEFT DELTOID RABIES SHOT. D/C VITALS: 140/73, 55, 15, 98% ROOM AIR
== END ==
PROVIDERS: PCP Internal Medicine
DX: Z23 Encounter for immunization (principal)
CPT/HCPCS: 96372; 90675

== ENCOUNTER 2020-07-06 09:59 | Outpatient (CLI) | payer MEDICARE, SELFPAY ==
[2019-06-19 08:23] VITALS: BMI 22.4
[2020-06-29 19:27] VITALS: BMI 23.1
[2020-07-06 10:25] VITALS: BP 150/91; PULSE 71; RESP 17; TEMP 36.4; O2SAT 98; BMI 23.7
[2020-07-06] MEDS: Rabies Vaccine,Human Diploid 2.5 UNITS Vial IM (10:27)
== END 2020-07-06 10:47 | disposition home or self-care (01) ==
LOC: ED 10:52
PROVIDERS: PCP Internal Medicine
DX: Z23 Encounter for immunization (principal)
CPT/HCPCS: 96374; 90471; 90675

== ENCOUNTER → 2023-02-12 | Outpatient (CLI) | payer MEDICARE, SELFPAY ==
[2019-06-19 08:23] VITALS: BMI 22.4
--- NOTE | 2023-02-12 09:15 | RAD_ITS ---
STUDY: X-RAY CHEST REASON FOR EXAM: Male, 73 years old. Shortness of breath. Complains of right-sided chest and rib spasm. History of injury to that area 2 years ago. TECHNIQUE: PA and lateral views of the chest. COMPARISON: June 17, 2019 FINDINGS: The lungs are clear and expanded. There is no demonstrated pleural abnormality. Normal size heart. Normal mediastinum and damian. Normal visualized pulmonary arteries. Normal visualized aortic arch and descending thoracic aorta. Degenerative changes of the thoracic spine. Normal visualized ribs, clavicles, and shoulders. There is no demonstrated abnormality of the visualized soft tissue structures of the upper abdomen. RAD/Chest PA and Lateral IMPRESSION: Degenerative changes, as described above. No demonstrated acute cardiopulmonary process. No major interval change. Electronically Signed: Joel Dietz DO at 19:52 EDT ,
[2023-02-12 12:06] LABS: Absolute Lymphocyte Count 1.53 X10^3/uL (0.83-4.51); Absolute Neutrophil Count 3.1 X10^3/uL (2.0-7.7); Basophil# 0.06 X10^3/uL; Basophil% 1.1 % (0-1); Eosinophil# 0.25 X10^3/uL; Eosinophils% 4.6 % (0-5); Hematocrit 45.2 % (40-54); Hemoglobin 15.1 g/dL (13.0-16.5); Lymphocyte # 1.53 X10^3/ul (0.83-4.51); Mean Corp Hgb Conc 33.4 g/dL (32-36); Mean Corpuscular Hgb 30.8 pg (27.0-32.0); Mean Corpuscular Volume 92.1 fL (80-94); Mean Platelet Vol. 8.9 fl (6.2-12.0); Monocyte# 0.51 X10^3/uL; Monocyte% 9.3 % (0-10); NRBC Flagged by Analyzer 0 % (0-5); Neutrophil # 3.09 X10^3/uL (2.7-7.7); Neutrophil % 56.5 % (47-70); Platelet Count 326 K/mm3 (150-450); RBC Distribution Width CV 13.4 % (11.6-14.6); RBC Distribution Width SD 44.7 fl (35.1-43.9); Red Blood Count 4.91 M/mm3 (4.6-6.2); White Blood Count 5.5 K/mm3 (4.4-11.0)
[2023-02-12 12:21] LABS: Prothrombin Time (Protime)PT. 12.7 SECONDS (11.7-14.9)
[2023-02-12 12:22] LABS: Partial Thromboplast Time 28.7 Seconds (24.1-36.2)
[2023-02-12 12:32] LABS: Anion Gap 6 (5-15); BUN 15 mg/dL (7-18); BUN/Creat Ratio 13.6 RATIO (10-20); Calcium,Total 9.2 mg/dL (8.5-10.1); Chloride 104 mmol/L (98-107); EST Glomerular Filtration Rate 70 mL/min (>60); Est Glom Filt Rate - Afr Amer 85 mL/min (>60); Glucose 105 mg/dL (74-106); Potassium 4.2 mmol/L (3.5-5.1); Sodium Level 137 mmol/L (136-145)
== END | disposition home or self-care (01) ==
LOC: RAD 09:13
PROVIDERS: PCP Internal Medicine; Referring Provider Physician Assistant Medical; Visit Provider Physician Assistant Medical
DX: I20.9 Angina pectoris, unspecified (principal); I21.29 ST elevation (STEMI) myocardial infarction involving other sites; Z95.5 Presence of coronary angioplasty implant and graft; I25.10 Atherosclerotic heart disease of native coronary artery without angina pectoris
CPT/HCPCS: 36415; 71046; 80048; 85025; 85610; 85730

== ENCOUNTER 2023-02-18 16:27 | Observation (INO) | payer MEDICARE, SELFPAY ==
[2019-06-19 08:23] VITALS: BMI 22.4
[2023-02-17 08:40] VITALS: BMI 24.0
[2023-02-18] VITALS (9 sets, daily range): BP systolic 133–165; BP diastolic 72–97; PULSE 57–76; RESP 16–18; TEMP 36.6–36.8; O2SAT 95–100
--- NOTE | 2023-02-18 12:08 | CL.I_ITS ---
Patient Name: SIM LAGOS Study Date: 02/18/2023 Performing: Chaya Arora MD Ht: 72 inches 182.88 cm : 1950 Wt: 177.01 lbs 80.29 kg Age: 73 Gender: male BSA: 2.02 PROCEDURE(S) PERFORMED DC02-(53472)LHC/COR IC01-([id number])PTCA, SINGLE CORONARY ARTERY CLINICAL PROFILE AND CO-MORBIDITIES Indications: Worsening Angina Heart Failure: None Angina Classification Anginal Classification w/in 2 Weeks: CCS III CAD Presentations: Unstable angina. CONCLUSIONS 95% ostial jailed OM1 Stent to Prox LCX 50-60% ISR Stent to LAD patent 95% Mid RCA (non-dominant), unchanged from previous study in 2019 Successful PCI with PTCA to the ostial (jailed) OM1 using 2.75 mm balloon RECOMMENDATIONS ASA Indefinitley Brilinta for at least 1 month DESCRIPTION OF PROCEDURE The patient arrived to the procedure lab. The risks and benefits of the procedure as well as a full description of our services here and lack of surgical backup were fully explained to the patient and/or their significant other prior to the catheterization. The Timeout was completed, verifying the correct patient and procedure. The patient's procedural site was prepped and draped in the usual fashion. Local anesthetic was given subcutaneously to right radial region with Lidocaine 2%. Using a modified Seldinger technique, arterial access was obtained via the right radial artery, a 6Fr sheath was inserted.. Left Coronary Artery selective angiography was performed in multiple views using a 5 Fr. 4.0 [place] catheter. Right Coronary Artery selective angiography was then performed in multiple views using a 5 Fr. 4.0 [place] catheter XB 3.0 Guide catheter was inserted and engaged into the LCA. Runthrough Guide wire was advanced to the 1st OM. Emerge 2.5 x 8 Balloon catheter was inserted. Balloon catheter was advanced across lesion in the first obtuse marginal, ostial. PTCA balloon inflated at 8 atms for 18 secs. PTCA balloon inflated at 10 atms for 35 secs. Angiogram performed post balloon dilatation. Nc 2.75 x 8 Balloon catheter was inserted. Balloon catheter was advanced across lesion in the first obtuse marginal, ostial. Angiogram performed pre balloon dilatation. PTCA balloon inflated at 16 atms for 8 secs. PTCA balloon inflated at 14 atms for 41 secs. Angiogram performed post balloon dilatation. The arterial sheath was pulled and a TR Band was applied for hemostasis CORONARY ANGIOGRAPHY DOMINANCE: Left Dominant LEFT HEART ASSESSMENT Left Ventricular Ejection Fraction: Not assessed CIRCUMFLEX ARTERY: CIRCUMFLEX: In-Stent Restenosis 60% Proximal lesion in Circumflex, STENT to 60% OM 1: Tubular 95% Ostial lesion in 1st OM RIGHT CORONARY ARTERY: RCA: Tubular 95% Mid lesion in RCA INTERVENTION INFORMATION LESION SITE: 1st OM (Ostial) Lesion Complexity: Non-High/Non-C, lesion at bifurcation: Yes, culprit lesion: Yes Pre Stenosis: 95 % Pre intervention DANIELA flow: 3 PROCEDURE: Balloon Angioplasty Post Stenosis: 0 % Post intervention DANIELA flow: 3 Lesion Devices: Cordis 6 Fr XB3.0 100cm Guide Catheter Terumo .014 180cm Runthrough Extra Floppy straight Bryce Sci EMERGE MR 2.50x08 BALLOON Bryce Sci NC EMERGE MR 2.75x08 BALLOON COMPLICATIONS No Complications PROCEDURE MEDICATIONS Versed 1 mg IV Fentanyl 50 mcg IV Fentanyl 25 mcg IV Versed 1 mg IV Fentanyl 25 mcg IV Oxygen: 2 L/min via nasal cannula Baby Aspirin (81mg) 1 Tabs PO 02/18/2023 09:20:46 Brilinta 90 mg PO @ 02/18/2023 09:21:00 Heparin given IA 02/18/2023 10:55:48 Heparin 6000 unit(s) IV 02/18/2023 11:25:43 Nitro 300 mcg IC 02/18/2023 11:26:01 Verapamil 2.5mg, Ntg 200mcgs, 2000 units of Heparin given IA 02/18/2023 10:55:48 SUMMARY OF HEMODYNAMIC DATA Time AIR REST ECG 09:17:37 AO 172/96 (126) SA 11:15:22 12:02:18 Signed By Chaya Arora MD On 02/18/2023 12:11:15 Signed By Chaya Arora MD On 02/18/2023 12:07:00 Chaya Arora MD
[2023-02-18] MEDS: 0.9% Normal Saline 1,000 ML 150 ML IV (12:28)
--- NOTE | 2023-02-18 12:30 | EKG12_ITS ---
Test Reason : POST PCI Blood Pressure : / mmHG Vent. Rate : 062 BPM Atrial Rate : 062 BPM P-R Int : 206 ms QRS Dur : 078 ms QT Int : 396 ms P-R-T Axes : 036 -02 057 degrees QTc Int : 401 ms Normal sinus rhythm Normal ECG When compared with ECG of 18-JUL-2019 05:38, Nonspecific T wave abnormality no longer evident in Inferior leads Confirmed by THIERNO GARCIA ([id number]), continuity editor BENNETT DIAS ([id number]) on 02/24/2023 10:33:24 AM Referred By: Chaya Arora Confirmed By:THIERNO GARCIA
--- NOTE | 2023-02-18 12:42 | CRPHASE1 ---
Patient Communication Former Patient:: Phase I, Phase II PHII Cardiac Rehab Discussed with Patient:: Yes Guide to Cardiac Rehab Given to Patient:: Yes Cardiac Rehab Facility Choice List Given to Patient:: Yes Choice Program [facility] CR PHII:: Communication Given to CR Choice Program Other:: Communication Given to CR Student Nurse:: Chaya Arora Phase II Cardiac Rehab:: Yes Sessions:: 36 sessions - 3 days/wk, 12 weeks Cardiac Rehabilitation Info Cardiac Rehabilitation Program Information: Cardiac Rehab The cardiac rehab team at [facility] consists of highly skilled exercise physiologists, nurses, respiratory therapists and physicians working together with you. Our purpose is to help you have a full recovery and achieve the goals you set for yourself. Over the years many of our patients have returned to activities they assumed they would never do again! We can help restore your confidence and motivation to make lifestyle changes that can have a significant impact on your health and quality of life! We can help answer questions and concerns you may have about exercise, lifestyle, medications, diet, stress and anxiety which are common following a hospitalization. WE monitor ECG and vital signs during exercise and discuss your progress with you and report to your physician(s). Cardiac Rehab is proven to help reduce readmissions, improve functional capacity and lower recurrence of problems with your heart. Our Cardiac Rehab program is Certified by the [place] [employer] Pulmonary [employer] (AACVPR) and Accredited by the [place] [employer] through our [facility]. You can contact us at . We invite you to call us with your questions or to get started in our program. If you have other questions or concerns be sure to ask your physician/provider during your follow-up visit. WE look forward to seeing you!
--- NOTE | 2023-02-18 12:43 | CRPH1.INSTRU ---
General Education CAD and cardiac anatomy and function:: Patient communicates acknowledgment Explanation of diagnoses and procedures:: Patient communicates acknowledgment Sign/Symptoms of AL:: Patient communicates acknowledgment Antiplatelet therapy: Patient communicates acknowledgment Smoking Patient Nicotine/Smoking Risk Factors Are:: Non-smoker Recommendations Include:: Previous smoker; encourage continued cessation Nicotine/Smoking Response Code:: Patient communicates acknowledgment Dyslipidemia Patient Dyslipidemia Risk Factors Are:: Total Cholesterol, Triglycerides, HDL, LDL Recommendations Include:: Lipid profile provided, Therapeutic Lifestyle Change dietary guidelines Dyslipidemia Response Code:: Patient communicates acknowledgment Overweight/Obesity Patient Overweight/Obesity Risk Factors Are:: BMI Normal [24-29 & > 65 years old] Recommendations Include:: Weight loss of 5-10%, Reduced calorie diet, Exercise 5-7 times/week Overweight/Obesity:: Patient communicates acknowledgment Hypertension Recommendations Include:: Maintain BP <130/85, DASH dietary guidelines, Decrease/maintain normal body weight, Moderation of ETOH Hypertension:: Patient communicates acknowledgment Heart Disease Patient Heart Disease Risk Factors Are:: Previous cardiac event Recommendations Include:: Educated family members of their risk Heart Disease Response Code:: Patient communicates acknowledgment Diabetes Patient Diabetes Risk Factors Are:: No documented hx of diabetes Metabolic Syndrome Recommendations Include:: Does not meet criteria Sedentary Patient Sedentary Risk Factors Are:: Lack of regular exercise Recommendations Include:: Aerobic exercise 5-7 times/week for 20-30 minutes continuously, Benefits of regular exercise, Discussed home walking program, Monitored Outpatient Cardiac Rehab Sedentary Response Code:: Patient communicates acknowledgment Stress Recommendations Include:: Identification of stressors, and assessment of coping skills, Stress management techniques Stress Response Code:: Patient communicates acknowledgment
--- NOTE | 2023-02-18 20:15 | NURSING ---
Patient left after fluids complete at 2009 with spouse
[2023-02-19 07:17] LABS: ACT Activated Clotting Time 239 sec (74-137)
== END 2023-02-18 20:10 | disposition home or self-care (01) ==
LOC: CLSP 16:31 → PCU 16:31
PROVIDERS: Admitting Provider Internal Medicine Cardiovascular Disease; PCP Internal Medicine; Referring Provider Internal Medicine Cardiovascular Disease; Visit Provider Internal Medicine Cardiovascular Disease
DX: I25.110 Atherosclerotic heart disease of native coronary artery with unstable angina pectoris (principal); Z95.5 Presence of coronary angioplasty implant and graft; I25.2 Old myocardial infarction; E78.5 Hyperlipidemia, unspecified; I10 Essential (primary) hypertension; Z79.899 Other long term (current) drug therapy; Z79.82 Long term (current) use of aspirin
CPT/HCPCS: 85347; 92920; 93005; 93454; 96360; 96361; 99152; 99153; 99221; J7030; J7040; Q9967; C1725; C1769; C1887; C1894; G0378

== ENCOUNTER 2023-08-17 23:43 | Observation (INO) | payer MEDICARE, SELFPAY ==
[2019-06-19 08:23] VITALS: BMI 22.4
[2023-08-17 23:44] VITALS: BP 178/92; PULSE 78; RESP 16; TEMP 36.6; O2SAT 94; BMI 24.2
[2023-08-17 23:48] VITALS: BMI 24.2
[2023-08-18] VITALS (11 sets, daily range): BP systolic 127–178; BP diastolic 71–94; PULSE 52–70; RESP 14–18; TEMP 36.4–36.7; O2SAT 94–99; BMI 23.4
--- NOTE | 2023-08-18 00:06 | CT_ITS ---
We are attempting to reach an attending provider to discuss findings. An addendum with communication details will be sent when the communication is complete. INDICATION: Neuro deficit, acute, stroke suspected EXAMINATION: CT BRAIN - CT Head Stroke Protocol W/O Contrast Injection TECHNIQUE: Multiple axial images were obtained of the head without intravenous contrast. A radiation dose optimization technique was used for this scan. IV Contrast dosage and agent: None. RADIATION DOSAGE (If Supplied By Facility): CTDIvol = ( ) mGy, DLP = ( ) mGycm COMPARISON: None FINDINGS: BRAIN: No acute bleed. No edema. Mild decreased attenuation in the periventricular white matter bilaterally. Du-white matter differentiation is maintained. Arterial calcifications. VENTRICLES AND SULCI: Not dilated. EXTRA-AXIAL: No hemorrhage, fluid collection, or mass. CALVARIUM / SKULL BASE: Unremarkable. FACE/SINUSES: Unremarkable. SOFT TISSUES: Unremarkable. CT/STROKE Brain/Head without Cont IMPRESSION: No acute abnormality. Chronic microvascular ischemic disease. CT angiogram and/or MRI recommended to evaluate for acute infarct as clinically indicated. Electronically Signed: Kareyl Markham MD at 0:29 EDT ,
--- NOTE | 2023-08-18 00:06 | EKG12_ITS ---
Test Reason : Blood Pressure : / mmHG Vent. Rate : 060 BPM Atrial Rate : 060 BPM P-R Int : 214 ms QRS Dur : 082 ms QT Int : 414 ms P-R-T Axes : 053 005 084 degrees QTc Int : 414 ms Sinus rhythm with 1st degree A-V block Otherwise normal ECG Confirmed by BRUCE BLACKMON, CARLITO ([id number]), editorial assistant FELIX KENNEDY ([id number]) on 08/23/2023 2:07:52 PM Referred By: Confirmed By:CARLITO BARRERA MD
--- NOTE | 2023-08-18 00:06 | CT_ITS ---
We are attempting to reach an attending provider to discuss findings. An addendum with communication details will be sent when the communication is complete. INDICATION: Neuro deficit, acute, stroke suspected. Dizziness, atherosclerotic disease, hypertension. EXAMINATION: CTA CAROTIDS AND BRAIN TECHNIQUE: Routine CTA of the head and neck was performed with post processing of the angiographic images for volumetric reconstructions. In addition, images were obtained of the [place]. Nascet criteria using the distal ICAs for comparison were used for evaluation of stenoses. 2-D and 3-D reconstructions were reviewed. A radiation dose optimization technique was used for this scan. IV Contrast dosage and agent: 100 cc [id number] COMPARISON: Concurrent unenhanced CT brain FINDINGS: --NECK: AORTIC ARCH AND BRANCHES: No aneurysm, dissection, occlusion or significant stenosis. RIGHT CCA: No occlusion, significant stenosis or dissection. RIGHT ICA: No occlusion or dissection. Atherosclerotic plaque resulting in up to 50% stenosis proximally. LEFT CCA: No occlusion or dissection. Atherosclerotic plaque at bifurcation with less than 50% stenosis. LEFT ICA: No occlusion or dissection. Atherosclerotic plaque with less than 50% stenosis proximally. RIGHT VERTEBRAL ARTERY: No occlusion, significant stenosis or dissection. LEFT VERTEBRAL ARTERY: No occlusion, significant stenosis or dissection. NECK SOFT TISSUES: No acute findings. LUNG APICES: Clear. BONES: Skeletal degenerative changes with no acute osseous abnormality. --HEAD: --Anterior circulation: ICAs: No significant stenosis at the intracranial/visualized segments. ACAs: No significant stenosis at the visualized segments. ACOM: Present. MCAs: No significant stenosis at the visualized segments. --Posterior circulation: PCOMs: Not visualized. chief strategy officer: No significant stenosis at the visualized segments. BASILAR ARTERY: No significant stenosis. VERTEBRAL ARTERIES: No significant stenosis at the intradural/visualized segments. No evidence of intracranial aneurysm or vascular malformation. CT/STROKE CTA Head AND Neck W/Con IMPRESSION: 1. CTA head and neck with no acute arterial occlusive disease. 2. Atherosclerotic disease resulting in moderate stenosis at proximal right internal carotid artery and mild stenosis left common carotid bifurcation and proximal left internal carotid artery. Electronically Signed: Elio Koo MD at 0:50 EDT ,
--- NOTE | 2023-08-18 00:06 | RAD_ITS ---
INDICATION: Neuro deficit, acute, stroke suspected EXAMINATION/TECHNIQUE: X-RAY - XR Chest 1 View AP portable. 12:21 AM COMPARISON: 02/12/2023 FINDINGS: LINES/DEVICES: None. LUNGS: No consolidation. No pneumothorax. MEDIASTINUM: Unremarkable. CARDIAC SILHOUETTE: Not enlarged. BONES AND SOFT TISSUES: No acute abnormalities. RAD/Chest 1 View IMPRESSION: No evidence of active intrathoracic disease. Electronically Signed: Karely Markham MD at 0:39 EDT ,
--- NOTE | 2023-08-18 00:07 | EDS_ITS ---
HPI History of Present Illness Chief Complaint: Neuro S/Sx Narrative Narrative: 73-year-old male past medical history of coronary artery disease presents with problems with concentration, and dizziness. Of note, he had a coronary artery stent placed today at the [facility]. His ex- was with him and brought him home. She states that the procedure was finished around 1 PM, approximately 11 hours ago. Then, he may have had problems concentrating. She thought maybe that he could be dehydrated or that he had not eaten anything all day. There was some difficulty in stenting his coronary artery. About an hour ago to 40 minutes, when he stood up he became very dizzy. He had problems concentrating and is having problems finding words. He states he has a slight headache. He did receive heparin today, but they are unsure if he takes other medications such as blood thinners. Of note, he did state that he took his long-acting nitroglycerin. [facility] Medical History Acute ST elevation myocardial infarction (STEMI) of posterior wall Asthma Atherosclerosis of coronary artery without angina pectoris Chronic renal failure, stage 3 (moderate) Essential hypertension Family history of ASCVD Former smoker, stopped smoking in distant past HLD (hyperlipidemia) Home Medications albuterol sulfate 90 mcg/actuation aerosol inhaler 2 puff inhalation Q4H PRN PRN Shortness Of Breath 06/18/19 [History Last Taken Unknown] escitalopram oxalate 10 mg tablet 10 mg PO DAILY Depression 06/18/19 [History Last Taken 07/17/19] ezetimibe 10 mg tablet 10 mg PO QHS #90 tabs 03/01/20 [Rx Last Taken Unknown] nitroglycerin 0.4 mg sublingual tablet 0.4 mg sublingual Q5M PRN chest pain #25 tabs 12/17/20 [Rx Last Taken Unknown] metoprolol tartrate 25 mg tablet 12.5 mg (1/2 x 25 mg) PO BID #90 tabs 03/07/21 [Rx Last Taken 02/18/23] ticagrelor 90 mg tablet 90 mg PO BID #180 tabs 04/02/21 [Rx Last Taken 02/18/23] amlodipine 5 mg tablet 5 mg PO DAILY 02/12/23 [History Last Taken Unknown] aspirin 81 mg tablet,delayed release (Adult Aspirin Regimen) 81 mg PO DAILY #90 tabs 02/12/23 [Rx Last Taken 02/18/23] gabapentin 300 mg capsule 300 mg PO DAILY 02/12/23 [History Last Taken Unknown] levothyroxine 50 mcg tablet 50 mcg PO DAILY 02/12/23 [History Last Taken Unknown] losartan 25 mg tablet 25 mg PO DAILY #90 tabs 02/12/23 [Rx Last Taken 02/18/23] mometasone-formoterol HFA 50 mcg-5 mcg/actuation aerosol inhaler (Dulera) 1 puff inhalation DAILY 02/12/23 [History Last Taken Unknown] sildenafil (pulm.hypertension) 20 mg tablet 20 mg PO DAILY PRN sexual activity 02/12/23 [History Last Taken Unknown] Allergy/AdvReac Type Severity Reaction Status Date / Time ibuprofen Allergy Severe Anaphylaxis Verified 08/17/23 23:47 Sulfa (Sulfonamide Allergy Rash Verified 08/17/23 23:47 Antibiotics) [id number] Reductase AdvReac Severe severe Verified 08/17/23 23:47 Inhibitor myalgias with multiple statins lisinopril AdvReac Intermediate cough Verified 08/17/23 23:47 Family History Mother Thyroid disorder Father Heart disease Thyroid disorder Surgical History History of percutaneous transluminal coronary angioplasty (~02/18/23) Stented coronary artery (07/17/19) Social History Smoking Status: Former smoker ROS ROS ED ROS Narrative Constitutional: No fever, no chills. HEENT: No sore throat. No neck pain. No loss of vision. No rhinorrhea. Cardiovascular: No chest pain. No palpitations. No pedal edema. Respiratory: No cough, no shortness of breath. Abdominal: No abdominal pain. No nausea. No vomiting. Genitourinary: No dysuria. No hematuria. Musculoskeletal: No myalgias. No arthralgias. Neurologic: Positive headaches. Positive dizziness. No lightheadedness. Problems concentrating, endorses expressive aphasia. Skin: No rash. No change in color. Psychiatric: No depression. No anxiety. EXAM Physical Exam Narrative Exam Narrative: Afebrile. Vital signs noted. HEENT: Normocephalic. Atraumatic. PERRL, EOMI. Neck soft and supple. No point tenderness or step off. Cardiovascular: Regular rate and rhythm. No murmurs, rubs, or gallops ernst reciated. Respiratory: No tachypnea. Lungs clear to auscultation bilaterally. Gastrointestinal: Abdomen soft, nontender, with normoactive bowel sounds. No rebound or guarding. Neurological: Awake. Alert. Nonfocal, nonlateralizing. NIH stroke scale is 1 for mild expressive aphasia, cannot name a watch and called at the clock, cannot name the portion of it, or dysfunction. Skin: No rash. Normal color. No pallor. Musculoskeletal: No pedal edema. Full range of motion extremities. Const Vital Signs: 08/17/23 23:44 08/18/23 00:06 08/18/23 00:06 Temperature 97.8 F 97.9 F Temperature Source Temporal Temporal Pulse Rate 78 70 Respiratory Rate 16 18 Blood Pressure 178/92 H 178/92 H Blood Pressure Mean 120 120 Pulse Ox 94 98 Oxygen Delivery Method Room Air Room Air Room Air 08/18/23 00:36 Temperature Temperature Source Pulse Rate 62 Respiratory Rate 18 Blood Pressure 159/90 H Blood Pressure Mean 113 Pulse Ox 98 Oxygen Delivery Method Room Air MDM MDM MDM Narrative Medical decision making narrative: Although the patient's NIH stroke scale is 1 for the expressive aphasia, stroke team was called. This is because of his problems with concentration and expressive aphasia and not being able to name a watch and find words for the band. He was evaluated by the stroke neurologist as well. 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 PT and INR are normal at 13.3 and 1.0 respectively. aPTT normal at 27.6. He has normal sodium 137, potassium normal at 3.6, chloride normal at 105, BUN slightly elevated 21 with creatinine of 1.35. Glucose is appropriately elevated at 107, and he has a normal anion gap of 6. He will be bolused normal saline 1 L intravenously. EKG was obtained and interpreted by myself independently as normal sinus rhythm at 60 bpm without ectopy or acute ST changes. No STEMI. His troponin is elevated at 547, but he is not having chest pain, and additionally, he had cardiac stent placed today at [facility] so this elevation is expected, and also expected to rise after his procedure. Chest x-ray in 1 view interpreted by myself independently shows no evidence of an acute process, no pneumonia or pneumothorax. I reviewed the radiology report which confirms my independent interpretation. I received a call from the radiologist, states that the CT of the brain is negative for acute hemorrhage or any acute process. Additionally, I received a call from the radiologist regarding the CTA of the head and neck which is also negative for acute thrombosis or large vessel occlusion. There is atherosclerotic changes in the carotid arteries but no significant stenosis. In discussion with the stroke neurologist, patient was able to object name and was not having problems with expressive aphasia, and upon my repeat examination he has improved slightly. Hence, he does not have a debilitating deficit and tPA is not indicated because of his improving symptoms as well. This was also confirmed by the stroke neurologist. Stroke neurologist also reviewed the CTA of the head and neck. Patient will be discussed with the hospitalist for observation. Patient is in stable condition. History & Record Review Discussion w/independent historian: Patient and Friend (Ex-) Additional record(s) reviewed:: Prior ED visit and Prior labs Lab Data Attestation: I reviewed the patient's lab results. Labs: Laboratory Results - last 24 hr 08/17/23 23:52 WBC 9.8 RBC 4.59 L Hgb 14.1 Hct 41.5 MCV 90.4 MCH 30.7 MCHC 34.0 RDW Std Deviation 43.2 RDW Coeff of Larry 13.2 Plt Count 295 MPV 9.3 Immature Gran % (Auto) 0.200 Neut % (Auto) 46.1 L Lymph % (Auto) 37.8 [place] % (Auto) 10.0 Eos % (Auto) 5.2 H Baso % (Auto) 0.7 Absolute Neuts (auto) 4.5 Absolute Lymphs (auto) 3.71 Nucleated RBC % 0 PT 13.3 INR 1.0 APTT 27.6 Sodium 137 Potassium 3.6 Chloride 105 Carbon Dioxide 26.0 Anion Gap 6 BUN 21 H Creatinine 1.35 H Estim Creat Clear Calc 55.09 Est GFR (MDRD) Af Amer 67 Est GFR (MDRD) Non-Af 55 L BUN/Creatinine Ratio 15.6 Glucose 107 H Calcium 9.0 Troponin I High Sens 547 H* Radiography Chest X-Ray - ED: 1 View Diagnostic Testing: Clinical Impression(s) from Imaging Studies Brain CT 08/18/23 00:06 IMPRESSION: No acute abnormality. Chronic microvascular ischemic disease. CT angiogram and/or MRI recommended to evaluate for acute infarct as clinically indicated. Electronically Signed: Karely Markham MD at 0:29 EDT , ADDENDUM: 08/18/23 0036 IMPRESSION: No acute abnormality. Chronic microvascular ischemic disease. CT angiogram and/or MRI recommended to evaluate for acute infarct as clinically indicated. N.B. : The above Results were Read Back by Karely Markham MD to Dr Ferny Sarmiento MD, and understanding confirmed on 08/18/2023 00:29:14 (ET). Electronically Signed: Karely Markham MD at 0:29 EDT , Chest X-Ray 08/18/23 00:06 IMPRESSION: No evidence of active intrathoracic disease. Electronically Signed: Karely Markham MD at 0:39 EDT , Head/Neck CTA 08/18/23 00:06 IMPRESSION: 1. CTA head and neck with no acute arterial occlusive disease. 2. Atherosclerotic disease resulting in moderate stenosis at proximal right internal carotid artery and mild stenosis left common carotid bifurcation and proximal left internal carotid artery. Electronically Signed: Elio Koo MD at 0:50 EDT , Differential Diagnosis Differential Diagnosis: Stroke, TIA, dehydration, medication side effect. Fatigue. Management Discussion w/another healthcare provider: Hospitalist (Dr. Jovel) Discharge Plan Triage Chief Complaint: Neuro S/Sx ED Provider: Ferny Sarmiento Dx/Rx/DC Orders Prescriptions: No Action ezetimibe 10 mg tablet 10 mg PO QHS Qty: 90 3RF nitroglycerin 0.4 mg tablet, sublingual 0.4 mg SUBLINGUAL Q5M PRN (Reason: chest pain) Qty: 25 3RF Rx Instructions: do not exceed 3 doses per episode amlodipine 5 mg tablet 5 mg PO DAILY Patient Comments: TAKE 1 TABLET BY MOUTH ONCE DAILY levothyroxine 50 mcg tablet 50 mcg PO DAILY gabapentin 300 mg capsule 300 mg PO DAILY Dulera 50-5 mcg/actuation HFA aerosol inhaler 1 puff inhalation DAILY Rx Instructions: as directed sildenafil (pulm.hypertension) 20 mg tablet 20 mg PO DAILY PRN (Reason: sexual activity) Patient Comments: TAKE 1 TABLET ONE-HALF HOUR TO 1 (ONE) HOUR PRIOR TO SEXUAL INTERCOURSE. DO NOT EXCEED MORE THAN 2 (TWO) TABLETS IN A 24 HOUR PERIOD losartan 25 mg tablet 25 mg PO DAILY Qty: 90 3RF aspirin [Adult Aspirin Regimen] 81 mg tablet,delayed release (DR/EC) 81 mg PO DAILY Qty: 90 3RF albuterol sulfate 1 PUFF inhaler 2 puff INHALATION Q4H PRN PRN (Reason: Shortness Of Breath) escitalopram oxalate 10 MG tablet 10 mg PO DAILY metoprolol tartrate 25 mg tablet 12.5 mg PO BID Qty: 90 3RF ticagrelor 90 mg tablet 90 mg PO BID Qty: 180 3RF Primary Care Provider: Dary Alvarez Referrals: Dary Alvarez MD [Primary Care Provider] -
--- NOTE | 2023-08-18 00:12 | ED.RN ---
phone call to [facility] at this time
[2023-08-18 00:15] LABS: Absolute Lymphocyte Count 3.71 X10^3/uL (0.83-4.51); Absolute Neutrophil Count 4.5 X10^3/uL (2.0-7.7); Basophil# 0.07 X10^3/uL; Basophil% 0.7 % (0-1); Eosinophil# 0.51 X10^3/uL; Eosinophils% 5.2 % (0-5); Hematocrit 41.5 % (40-54); Hemoglobin 14.1 g/dL (13.0-16.5); Lymphocyte # 3.71 X10^3/ul (0.83-4.51); Lymphocyte % 37.8 % (19-41); Mean Corpuscular Hgb 30.7 pg (27.0-32.0); Mean Corpuscular Volume 90.4 fL (80-94); Mean Platelet Vol. 9.3 fl (6.2-12.0); Monocyte# 0.98 X10^3/uL; NRBC Flagged by Analyzer 0 % (0-5); Neutrophil # 4.52 X10^3/uL (2.7-7.7); Neutrophil % 46.1 % (47-70); Platelet Count 295 K/mm3 (150-450); RBC Distribution Width CV 13.2 % (11.6-14.6); RBC Distribution Width SD 43.2 fl (35.1-43.9); Red Blood Count 4.59 M/mm3 (4.6-6.2); White Blood Count 9.8 K/mm3 (4.4-11.0)
[2023-08-18 00:27] LABS: Prothrombin Time (Protime)PT. 13.3 SECONDS (11.7-14.9)
[2023-08-18 00:28] LABS: Partial Thromboplast Time 27.6 Seconds (24.1-36.2)
[2023-08-18 00:37] LABS: Anion Gap 6 (5-15); BUN 21 mg/dL (7-18); BUN/Creat Ratio 15.6 RATIO (10-20); Chloride 105 mmol/L (98-107); Creatinine, Serum 1.35 mg/dL (0.70-1.30); EST Glomerular Filtration Rate 55 mL/min (>60); Est Glom Filt Rate - Afr Amer 67 mL/min (>60); Estimated Creatinine Clearance 55.09 ml/min; Glucose 107 mg/dL (74-106); Potassium 3.6 mmol/L (3.5-5.1); Sodium Level 137 mmol/L (136-145); Troponin-I HS 547 pg/mL (3.0-78.0)
[2023-08-18] MEDS: 0.9% Normal Saline (1000mL) 1,000 ML 999 ML IV (00:45)
--- NOTE | 2023-08-18 00:59 | PCM.HP.STD ---
HPI - General General Date of Admission: 08/18/23 Date of Service: 08/18/23 Chief Complaint: Strokelike symptoms HPI Narrative SIM LAGOS, is a 73 M with a significant history of hypertension; hyperlipidemia; CAD who had 2 stents at [facility] presents emergency department with strokelike symptoms. Reportedly patient was given and took a variety of medications in respect to having cardiac stents placed. Reportedly a stent was placed in the OM and stents repositioned or opened in the circumflex. When patient's got home he felt dizzy. He described his dizziness as Vertigo plus some transient blurry vision. Also he was aphasic. Reportedly he had improvements at the emergency department from prior exams while at the ED. He was evaluated by stroke neurologist who recommended that aside CT head and CTA head and neck patient showed be evaluated further with an MRI. Subsequently patient was made to stay at the hospital [facility] Medical History Acute ST elevation myocardial infarction (STEMI) of posterior wall Asthma Atherosclerosis of coronary artery without angina pectoris Chronic renal failure, stage 3 (moderate) Essential hypertension Family history of ASCVD Former smoker, stopped smoking in distant past HLD (hyperlipidemia) Home Medications albuterol sulfate 90 mcg/actuation aerosol inhaler 2 puff inhalation Q4H PRN PRN Shortness Of Breath 06/18/19 [History Last Taken Unknown] escitalopram oxalate 10 mg tablet 10 mg PO DAILY Depression 06/18/19 [History Last Taken 07/17/19] ezetimibe 10 mg tablet 10 mg PO QHS #90 tabs 03/01/20 [Rx Last Taken Unknown] nitroglycerin 0.4 mg sublingual tablet 0.4 mg sublingual Q5M PRN chest pain #25 tabs 12/17/20 [Rx Last Taken Unknown] metoprolol tartrate 25 mg tablet 12.5 mg (1/2 x 25 mg) PO BID #90 tabs 03/07/21 [Rx Last Taken 02/18/23] ticagrelor 90 mg tablet 90 mg PO BID #180 tabs 04/02/21 [Rx Last Taken 02/18/23] amlodipine 5 mg tablet 5 mg PO DAILY 02/12/23 [History Last Taken Unknown] aspirin 81 mg tablet,delayed release (Adult Aspirin Regimen) 81 mg PO DAILY #90 tabs 02/12/23 [Rx Last Taken 02/18/23] gabapentin 300 mg capsule 300 mg PO DAILY 02/12/23 [History Last Taken Unknown] levothyroxine 50 mcg tablet 50 mcg PO DAILY 02/12/23 [History Last Taken Unknown] losartan 25 mg tablet 25 mg PO DAILY #90 tabs 02/12/23 [Rx Last Taken 02/18/23] mometasone-formoterol HFA 50 mcg-5 mcg/actuation aerosol inhaler (Dulera) 1 puff inhalation DAILY 02/12/23 [History Last Taken Unknown] sildenafil (pulm.hypertension) 20 mg tablet 20 mg PO DAILY PRN sexual activity 02/12/23 [History Last Taken Unknown] Allergy/AdvReac Type Severity Reaction Status Date / Time ibuprofen Allergy Severe Anaphylaxis Verified 08/17/23 23:47 Sulfa (Sulfonamide Allergy Rash Verified 08/17/23 23:47 Antibiotics) Sneynto-CNH-GiL Reductase AdvReac Severe severe Verified 08/17/23 23:47 Inhibitor myalgias with multiple statins lisinopril AdvReac Intermediate cough Verified 08/17/23 23:47 Family History Mother Thyroid disorder Father Heart disease Thyroid disorder Surgical History History of percutaneous transluminal coronary angioplasty (~02/18/23) Stented coronary artery (07/17/19) Social History Smoking Status: Former smoker ROS ROS Narrative Pertinent positives and pertinent negatives as noted in HPI. All other systems were reviewed and are negative Vital Signs Vital Signs Vital Signs: 08/17/23 23:44 08/18/23 00:06 08/18/23 00:06 Temperature 97.8 F 97.9 F Temperature Source Temporal Temporal Pulse Rate 78 70 Respiratory Rate 16 18 Blood Pressure 178/92 H 178/92 H Blood Pressure Mean 120 120 Pulse Ox 94 98 Oxygen Delivery Method Room Air Room Air Room Air 08/18/23 00:36 Temperature Temperature Source Pulse Rate 62 Respiratory Rate 18 Blood Pressure 159/90 H Blood Pressure Mean 113 Pulse Ox 98 Oxygen Delivery Method Room Air Weight Weight: 80.9 kg Body Mass Index (BMI) 24.2 Physical Exam Narrative Physical exam: General: Well-nourished, well-developed. Head: Normocephalic, atraumatic, no tenderness Eyes: Vision is grossly intact. EOMI ENT, no trauma, moist mucous membranes, no rhinorrhea Neck: Nontender, No thyromegaly. CVS: Regular rate and rhythm. S1-S2 present. No murmur, gallop or rub. Respiratory : clear to auscultation bilaterally, chest wall nontender Abdomen: Soft, nontender, nondistended, normal bowel sounds, no masses : Deferred Back: Nontender, no CVA tenderness. Extremities: Nontender full range of motion, no trauma Skin: Normal color, no trauma, abrasions Neuro: Alert, oriented, cranial nerves II through XII grossly intact. No dysmetria with [id number] test or eller to heel test. Strength 5 out of 5 throughout. Not hyperreflexia with knee jerk reflex or elbow reflexes. Psychiatry: Normal mood. Normal affect. Not depressed. Not anxious. Results Lab / Micro Data 08/17/23 23:52 08/17/23 23:52 Labs: Laboratory Results - last 24 hr 08/17/23 23:52: WBC 9.8, RBC 4.59 L, Hgb 14.1, Hct 41.5, MCV 90.4, MCH 30.7, MCHC 34.0, RDW Std Deviation 43.2, RDW Coeff of Larry 13.2, Plt Count 295, MPV 9.3, Immature Gran % (Auto) 0.200, Neut % (Auto) 46.1 L, Lymph % (Auto) 37.8, [place] % (Auto) 10.0, Eos % (Auto) 5.2 H, Baso % (Auto) 0.7, Absolute Neuts (auto) 4.5, Absolute Lymphs (auto) 3.71, Nucleated RBC % 0, PT 13.3, INR 1.0, APTT 27.6, Sodium 137, Potassium 3.6, Chloride 105, Carbon Dioxide 26.0, Anion Gap 6, BUN 21 H, Creatinine 1.35 H, Estim Creat Clear Calc 55.09, Est GFR (MDRD) Af Amer 67, Est GFR (MDRD) Non-Af 55 L, BUN/Creatinine Ratio 15.6, Glucose 107 H, Calcium 9.0, Troponin I High Sens 547 H* Radiology Impression Brain CT 08/18/23 00:06 IMPRESSION: No acute abnormality. Chronic microvascular ischemic disease. CT angiogram and/or MRI recommended to evaluate for acute infarct as clinically indicated. Electronically Signed: Karely Markham MD at 0:29 EDT , ADDENDUM: 08/18/23 0036 IMPRESSION: No acute abnormality. Chronic microvascular ischemic disease. CT angiogram and/or MRI recommended to evaluate for acute infarct as clinically indicated. N.B. : The above Results were Read Back by Karely Markham MD to Dr Ferny Sarmiento MD, and understanding confirmed on 08/18/2023 00:29:14 (ET). Electronically Signed: Karely Markham MD at 0:29 EDT , Chest X-Ray 08/18/23 00:06 IMPRESSION: No evidence of active intrathoracic disease. Electronically Signed: Karely Markham MD at 0:39 EDT , Head/Neck CTA 08/18/23 00:06 IMPRESSION: 1. CTA head and neck with no acute arterial occlusive disease. 2. Atherosclerotic disease resulting in moderate stenosis at proximal right internal carotid artery and mild stenosis left common carotid bifurcation and proximal left internal carotid artery. Electronically Signed: Elio Koo MD at 0:50 EDT , ADDENDUM: 08/18/23 0059 IMPRESSION: 1. CTA head and neck with no acute arterial occlusive disease. 2. Atherosclerotic disease resulting in moderate stenosis at proximal right internal carotid artery and mild stenosis left common carotid bifurcation and proximal left internal carotid artery. N.B. : The above Results were Read Back by Elio Koo MD to Dr Ferny Sarmiento MD, and understanding confirmed on 08/18/2023 00:52:05 (ET). Electronically Signed: Elio Koo MD at 0:50 EDT , Assessment & Plan Assessment/Plan (1) TIA (transient ischemic attack): (2) Expressive aphasia: (3) Disturbed concentration: (4) Stented coronary artery: PLAN: Plan TIA/expressive aphasia/at this time consideration Serial NINDS NIH Scale ordered Impression of head CT by radiology: Chronic microvascular ischemic disease. CT head was independently interpreted by hospitalist; agrees to evaluate interpretation. CT head and neck did not show hemodynamically significant stenosis. Lipid profile and A1c ordered. Physical therapy, occupational therapy and speech therapy to work with patient. N.p.o. until bedside swallow eval. D antiplatelet therapy continued. Allergic to statin Permissive hypertension. Control blood pressure with labetalol for systolic blood pressure of more than 220 or diastolic blood pressure of more than 120. MRI/MRAM of head; brain; and neck. Echocardiogram ordered. CAD status post stents Dual antiplatelets therapy continued. Initial troponin elevated secondary to recent stent placement DVT prophylaxis: SCDs ordered. Time spent in the patient's overall evaluation,decision-making process, review of diagnostic data, adjustment of management, discussion with other providers, nursing nursing and ancillary staff involved in patient's care documentation, 65 minutes. Charges/Coding Visit Charges Inpatient E&M: 33155 Init Hosp L3
[2023-08-18 01:03] LABS: Bedside Glucose 106 mg/dL (74-106)
[2023-08-18] MEDS: Ondansetron 4 MG/2 ML Vial IV (01:21)
[2023-08-18 02:17] LABS: Cholesterol 165 mg/dL (200); High Density Lipoprotein 47 mg/dL; Triglycerides 283 mg/dL; Very Low Density Lipoprotein 57 mg/dL (5-40)
[2023-08-18] MEDS: Acetaminophen 325 MG Tablet 650 MG PO (02:23)
--- NOTE | 2023-08-18 02:35 | MRI_ITS ---
HISTORY: CVA. TECHNIQUE: Multiplanar and multisequence MR images of the brain were obtained without contrast. 297 images. COMPARISON: CT same day. FINDINGS: BRAIN PARENCHYMA: Mild foci of increased T2 FLAIR signal in the bilateral cerebral white matter. No abnormal focus of restricted diffusion. No acute intracranial hemorrhage identified. CSF SPACES: Generalized volume loss. No significant midline shift or other mass effect.No extra-axial fluid collection. VASCULAR SYSTEM: Major intracranial flow voids are maintained. PARANASAL SINUSES AND MASTOID AIR CELLS: No significant air fluid levels. ORBITS: Symmetric contents. MRI/Brain without Contrast IMPRESSION: No evidence for acute infarct. Mild chronic involutional and white matter changes. Electronically Signed: More Mitchell MD at 10:59 EDT ,
--- NOTE | 2023-08-18 02:35 | ECHOD_ITS ---
Reason For Study: TIA/CVA Procedure This was a 2D Doppler, Color Flow transthoracic echocardiogram. Exam performed portable in patient room. Left Ventricle Normal left ventricle. Left ventricular systolic function is normal. The estimated ejection fraction is 60 %. No regional wall motion abnormalities noted. Right Ventricle Normal RV size. Normal systolic function. Atria Normal left atrium. Normal right atrium. Intact atrial septum. Bubble contrast study negative for right to left interatrial shunt. Mitral Valve Normal mitral valve. Tricuspid Valve Normal tricuspid valve. Mild tricuspid valve insufficiency. Pulmonary artery systolic pressure is 26 mmHg. Pulmonic Valve Normal pulmonic valve. Great Vessels Normal aortic root. The pulmonary artery is normal size. Normal inferior vena cava. Pericardium/Pleural No pericardial effusion. Medication Performed a rapid injection of agitated mix of 9 cc saline and 1cc air to assess for atrial septal defect. MMode/2D Measurements & Calculations LVIDd: 4.1 cm IVSd: 1.6 cm LA dimension: 4.2 cm LVIDs: 2.9 cm LVPWd: 0.89 cm RVDd: 4.4 cm FS: 28.0 % LAV(MOD-bp): 49.9 ml LVAd ap4: 39.1 cm2 SV(MOD-sp4): 81.8 ml LAV(MOD-bp) Indexed: 24.4 ml/m2 LVLd ap4: 9.5 cm LAV(MOD-sp2): 55.8 ml EDV(MOD-sp4): 128.9 ml LAV(MOD-sp4): 43.7 ml EDV(sp4-el): 136.8 ml LVAs ap4: 19.9 cm2 LVLs ap4: 7.6 cm ESV(MOD-sp4): 47.2 ml ESV(sp4-el): 44.6 ml EF(MOD-sp4): 63.4 % EF(sp4-el): 67.4 % SV(sp4-el): 92.3 ml LA A4 area: 16.0 cm2 RA A4 area: 15.0 cm2 TAPSE: 2.0 cm Time Measurements MV dec time: 0.27 sec Doppler Measurements & Calculations MV E max ronal: 74.4 cm/sec Lat Peak E' Ronal: 12.2 cm/sec Med Peak E' Ronal: 12.1 cm/sec MV A max ronal: 76.1 cm/sec E/E' lat: 6.1 E/E' med: 6.1 MV E/A: 0.98 MV V2 max: 95.9 cm/sec MV P1/2t max ronal: 95.9 cm/sec Ao V2 max: 134.0 cm/sec MV max P.7 mmHg MV P1/2t: 99.9 msec Ao max P.2 mmHg MV V2 mean: 51.4 cm/sec MV dec slope: 281.1 cm/sec2 Ao V2 mean: 92.0 cm/sec MV mean P.3 mmHg Ao mean P.8 mmHg MV V2 VTI: 31.9 cm MVA(P1/2t): 2.2 cm2 Ao V2 VTI: 30.6 cm LV V1 max: 118.5 cm/sec PA V2 max: 92.9 cm/sec TR max ronal: 235.3 cm/sec LV V1 max P.6 mmHg TR max P.2 mmHg ECHO/Echo Complete Interpretation Summary Normal left ventricle. Left ventricular systolic function is normal. The estimated ejection fraction is 60 %. Bubble contrast study negative for right to left interatrial shunt. Ordering Physician: Herber Jovel Performed By: Jesus Christianson RCS
[2023-08-18 04:27] LABS: Troponin-I HS 611 pg/mL (3.0-78.0)
[2023-08-18 06:37] LABS: Absolute Lymphocyte Count 1.52 X10^3/uL (0.83-4.51); Absolute Neutrophil Count 7.3 X10^3/uL (2.0-7.7); Basophil# 0.04 X10^3/uL; Basophil% 0.4 % (0-1); Eosinophil# 0.16 X10^3/uL; Eosinophils% 1.7 % (0-5); Hematocrit 40.1 % (40-54); Hemoglobin 13.7 g/dL (13.0-16.5); Lymphocyte # 1.52 X10^3/ul (0.83-4.51); Lymphocyte % 15.8 % (19-41); Mean Corp Hgb Conc 34.2 g/dL (32-36); Mean Corpuscular Hgb 30.6 pg (27.0-32.0); Mean Corpuscular Volume 89.7 fL (80-94); Monocyte# 0.58 X10^3/uL; NRBC Flagged by Analyzer 0 % (0-5); Neutrophil # 7.31 X10^3/uL (2.7-7.7); Platelet Count 245 K/mm3 (150-450); RBC Distribution Width CV 13.2 % (11.6-14.6); RBC Distribution Width SD 43.5 fl (35.1-43.9); Red Blood Count 4.47 M/mm3 (4.6-6.2); White Blood Count 9.6 K/mm3 (4.4-11.0)
[2023-08-18 07:18] LABS: Anion Gap 7 (5-15); BUN 18 mg/dL (7-18); BUN/Creat Ratio 17.6 RATIO (10-20); Calcium,Total 8.8 mg/dL (8.5-10.1); Chloride 105 mmol/L (98-107); Cholesterol 143 mg/dL (200); Creatinine, Serum 1.02 mg/dL (0.70-1.30); EST Glomerular Filtration Rate 76 mL/min (>60); Est Glom Filt Rate - Afr Amer 92 mL/min (>60); Estimated Creatinine Clearance 75.07 ml/min; Glucose 125 mg/dL (74-106); High Density Lipoprotein 42 mg/dL; Potassium 4.3 mmol/L (3.5-5.1); Sodium Level 135 mmol/L (136-145); Triglycerides 108 mg/dL; Very Low Density Lipoprotein 22 mg/dL (5-40)
[2023-08-18 07:36] LABS: Troponin-I HS 538 pg/mL (3.0-78.0)
[2023-08-18] MEDS: Aspirin 81 MG TAB.CHEW PO (08:09)
--- NOTE | 2023-08-18 09:07 | PN.HOSP_ITS ---
Hospitalist Note #Stroke like symptoms- dizziness and blurry vision -Patient with some dizziness and transient blurry vision and word finding difficulties after he got home from stent placement -Seen by tele stroke who recommended admission for MRI -CT head with chronic microvascular ischemic disease and CTA head and neck unremarkable -Stroke work-up -MRI -Echocardiogram -08/18: MRI with no acute process, symptoms completely resolved and patient reports he continued to get pain medicine yesterday due to his cath and had been feeling dizzy and difficulty getting words out after that but symptoms have completely resolved and he feels well today. Echo pending, will likely DC home later today #Hypothyroidism -Continue Synthroid #Hx CAD w/ 2 stents and elevated troponin -Had stent placement at [facility] on day of presentation, on DAPT -It was felt elevated troponin secondary to recent stent placement, initial troponin 538 with subsequent 611 on the following 547, given the expected rise after procedure with complete lack of chest pain or associated symptoms and subsequent fall cardiology was not consulted but optimal medical therapy continued
[2023-08-18 09:23] LABS: Hemoglobin A1c 5.9 % (3.8-5.6)
--- NOTE | 2023-08-18 10:05 | CPS ---
Unable to start aerosols @this time, pt is in MRI.
[2023-08-18] MEDS: Levothyroxine 50 MCG Tablet PO (10:40)
[2023-08-18] MEDS: TICAGRELOR 90 MG TABLET PO (10:40)
[2023-08-18] MEDS: Escitalopram Oxalate 10 MG Tablet PO (10:40)
--- NOTE | 2023-08-18 12:57 | CHAPLAIN ---
Type of Pastoral Visit _x__ Initial Visit ___ Follow-up Visit ___ On-call Visit ___ General Patient Visit ___ Spiritual Assessment ___ Family Conference ___ Bereavement ___ Rapid Response ___ Code Blue ___ Other (describe below) Pastoral Care Referral From _x__ Patient ___ Family ___ Nurse ___ Physician ___ Manager Deli ___ Insulation Professional ___ Other (describe below) Sacrament/Intervention _x__ Active listening ___ Anointing ___ Islam ___ Bereavement ___ Communion ___ Maryuri exploration ___ ___ Life review ___ Prayer ___ Reconciliation ___ Sacrament of Sick _x__ Supportive presence ___ Wedding ___ Other (describe below) Pastoral Comments patient describes his situation and the testing he is having completed; pt acknowledges that he is feeling much better today; pt identifies himself as someone who takes form many religions and denies need for any spiritual care support
--- NOTE | 2023-08-18 13:20 | CPS ---
Pt does not want to take aerosols. He brought an inhaler he has already used, RT will let RN know to send his inhaler to pharmacy for label.
--- NOTE | 2023-08-18 15:03 | PCM.DC.SUM ---
Providers Date of Admission: 08/18/23 Date of Discharge: 08/18/23 Primary Care Physician: Dr. Dary Alvarez MD Reason For Visit: STROKE LIKE SYMPTOMS Diagnosis Discharge Diagnosis (1) Dizziness: Status: Acute Code(s): R42 - Dizziness and giddiness (2) Expressive aphasia: Status: Acute Code(s): R47.01 - Aphasia (3) Disturbed concentration: Status: Acute Code(s): R41.840 - Attention and concentration deficit (4) Stented coronary artery: Status: Chronic Code(s): Z95.5 - Presence of coronary angioplasty implant and graft Plan #Dizziness #adverse drug reaction #CAD s/p stenting and elevated troponins consistent with that #Hypothyroidism Medications at Discharge Home Medications albuterol sulfate 90 mcg/actuation aerosol inhaler 2 puff inhalation Q4H PRN PRN Shortness Of Breath 06/18/19 escitalopram oxalate 10 mg tablet 10 mg PO DAILY Depression 06/18/19 ezetimibe 10 mg tablet 10 mg PO QHS #90 tabs 03/01/20 nitroglycerin 0.4 mg sublingual tablet 0.4 mg sublingual Q5M PRN chest pain #25 tabs 12/17/20 metoprolol tartrate 25 mg tablet 12.5 mg (1/2 x 25 mg) PO BID #90 tabs 03/07/21 ticagrelor 90 mg tablet 90 mg PO BID #180 tabs 04/02/21 amlodipine 5 mg tablet 5 mg PO DAILY 02/12/23 aspirin 81 mg tablet,delayed release (Adult Aspirin Regimen) 81 mg PO DAILY #90 tabs 02/12/23 gabapentin 300 mg capsule 300 mg PO DAILY 02/12/23 levothyroxine 50 mcg tablet 50 mcg PO DAILY 02/12/23 losartan 25 mg tablet 25 mg PO DAILY #90 tabs 02/12/23 mometasone-formoterol HFA 50 mcg-5 mcg/actuation aerosol inhaler (Dulera) 1 puff inhalation DAILY 02/12/23 sildenafil (pulm.hypertension) 20 mg tablet 20 mg PO DAILY PRN sexual activity 02/12/23 Hospital Course Procedures Transthoracic echo Summary of Care Provided Minutes Spent on Discharge: 35 Hospital Course: 73-year-old male history of hypertension, coronary artery disease with 2 stents at [facility] presented to [facility] 08/18/2023 with dizziness and some transient blurry vision with difficulty getting words out. He had stenting earlier in the day at [facility] and reported it was over 2 hours and he continued to get pain medication and multiple medications and subsequently at home he felt dizzy and not right prompting his presentation. Patient was stroke call and it was recommended that he be admitted for stroke work-up for TIA versus migraine. Work-up negative for acute process. Did have elevated troponin but given his long cath and stent placements and lack of chest pain or symptoms did not pursue this further, had trended up slightly between first and second and then back down. Still denies any symptoms whatsoever. His symptoms from last night completely resolved with time, discussed with patient and it sounds like his dizziness and feeling out of it and difficulty with word finding may have been secondary to medications patient received and pt also felt this was the case. Cannot rule out that it was migraine related however now patient completely asymptomatic, is starting Brilinta and aspirin for dual antiplatelet as is and will continue these. Patient will be discharged home on home medications Physical Exam Narrative General: Alert, oriented, no apparent distress HEENT: Atraumatic, normocephalic Eyes: Anicteric, normal conjunctiva, extraocular movements grossly intact Neck: Supple Respiratory: Clear to auscultation bilaterally, normal respiratory effort Cardiovascular: Regular rate and rhythm GI: Soft, nontender, nondistended Extremities: No edema Musculoskeletal: Moving all extremities Neuro: No overt focal neurological deficits Skin: No rashes appreciated Psych: Cooperative Weight / BMI Weight Weight: 80.5 kg Body Mass Index (BMI) 23.4 ABG / Lab / Microbiology Data 08/18/23 06:15 08/18/23 06:15 Laboratory: Laboratory Results - last 24 hr 08/17/23 23:52: WBC 9.8, RBC 4.59 L, Hgb 14.1, Hct 41.5, MCV 90.4, MCH 30.7, MCHC 34.0, RDW Std Deviation 43.2, RDW Coeff of Larry 13.2, Plt Count 295, MPV 9.3, Immature Gran % (Auto) 0.200, Neut % (Auto) 46.1 L, Lymph % (Auto) 37.8, Adair % (Auto) 10.0, Eos % (Auto) 5.2 H, Baso % (Auto) 0.7, Absolute Neuts (auto) 4.5, Absolute Lymphs (auto) 3.71, Nucleated RBC % 0, PT 13.3, INR 1.0, APTT 27.6, Sodium 137, Potassium 3.6, Chloride 105, Carbon Dioxide 26.0, Anion Gap 6, BUN 21 H, Creatinine 1.35 H, Estim Creat Clear Calc 55.09, Est GFR (MDRD) Af Amer 67, Est GFR (MDRD) Non-Af 55 L, BUN/Creatinine Ratio 15.6, Glucose 107 H, Hemoglobin A1c 5.9 H, Calcium 9.0, Troponin I High Sens 547 H*, Triglycerides 283 H, Cholesterol 165, LDL Cholesterol 61, VLDL Cholesterol 57 H, HDL Cholesterol 47 08/18/23 00:07: POC Glucose 106 08/18/23 03:33: Troponin I High Sens 611 H* 08/18/23 06:15: WBC 9.6, RBC 4.47 L, Hgb 13.7, Hct 40.1, MCV 89.7, MCH 30.6, MCHC 34.2, RDW Std Deviation 43.5, RDW Coeff of Larry 13.2, Plt Count 245, MPV 9.0, Immature Gran % (Auto) 0.100, Neut % (Auto) 76.0 H, Lymph % (Auto) 15.8 L, Adair % (Auto) 6.0, Eos % (Auto) 1.7, Baso % (Auto) 0.4, Absolute Neuts (auto) 7.3, Absolute Lymphs (auto) 1.52, Nucleated RBC % 0, Sodium 135 L, Potassium 4.3, Chloride 105, Carbon Dioxide 23.0, Anion Gap 7, BUN 18, Creatinine 1.02, Estim Creat Clear Calc 75.07, Est GFR (MDRD) Af Amer 92, Est GFR (MDRD) Non-Af 76, BUN/Creatinine Ratio 17.6, Glucose 125 H, Calcium 8.8, Troponin I High Sens 538 H*, Triglycerides 108, Cholesterol 143, LDL Cholesterol 79, VLDL Cholesterol 22, HDL Cholesterol 42 Radiography Diagnostic Testing: Radiology Impression Brain CT 08/18/23 00:06 IMPRESSION: No acute abnormality. Chronic microvascular ischemic disease. CT angiogram and/or MRI recommended to evaluate for acute infarct as clinically indicated. Electronically Signed: Karely Markham MD at 0:29 EDT , ADDENDUM: 08/18/23 0036 IMPRESSION: No acute abnormality. Chronic microvascular ischemic disease. CT angiogram and/or MRI recommended to evaluate for acute infarct as clinically indicated. N.B. : The above Results were Read Back by Karely Markham MD to Dr Ferny Sarmiento MD, and understanding confirmed on 08/18/2023 00:29:14 (ET). Electronically Signed: Karely Markham MD at 0:29 EDT , Chest X-Ray 08/18/23 00:06 IMPRESSION: No evidence of active intrathoracic disease. Electronically Signed: Karely Markham MD at 0:39 EDT , Head/Neck CTA 08/18/23 00:06 IMPRESSION: 1. CTA head and neck with no acute arterial occlusive disease. 2. Atherosclerotic disease resulting in moderate stenosis at proximal right internal carotid artery and mild stenosis left common carotid bifurcation and proximal left internal carotid artery. Electronically Signed: Elio Koo MD at 0:50 EDT , ADDENDUM: 08/18/23 0059 IMPRESSION: 1. CTA head and neck with no acute arterial occlusive disease. 2. Atherosclerotic disease resulting in moderate stenosis at proximal right internal carotid artery and mild stenosis left common carotid bifurcation and proximal left internal carotid artery. N.B. : The above Results were Read Back by Elio Koo MD to Dr Ferny Sarmiento MD, and understanding confirmed on 08/18/2023 00:52:05 (ET). Electronically Signed: Elio Koo MD at 0:50 EDT , Brain MRI 08/18/23 02:35 IMPRESSION: No evidence for acute infarct. Mild chronic involutional and white matter changes. Electronically Signed: More Mitchell MD at 10:59 EDT , Echocardiogram 08/18/23 02:35 Interpretation Summary Normal left ventricle. Left ventricular systolic function is normal. The estimated ejection fraction is 60 %. Bubble contrast study negative for right to left interatrial shunt. Ordering Physician: Herber Jovel Performed By: Jesus Christianson RCS D/C Instructions Discharge Diet: - (DASH diet) Meaningful Use Info Meaningful Use Diagnoses (Choose all that apply): None applicable Discharge Plan Admission Admit Date/Time: 08/18/23 00:46 Primary Reason for Your Visit: Dizziness and blurry vision Attending Provider: Lisset Pritchard Primary Care Provider: Dary Alvarez Consulting Providers: Herber Jovel Instructions Patient Instructions: CAD Discharge Orders/Prescriptions Prescriptions: Continued ezetimibe 10 mg tablet 10 mg PO QHS Qty: 90 3RF nitroglycerin 0.4 mg tablet, sublingual 0.4 mg SUBLINGUAL Q5M PRN (Reason: chest pain) Qty: 25 3RF Rx Instructions: do not exceed 3 doses per episode amlodipine 5 mg tablet 5 mg PO DAILY Patient Comments: TAKE 1 TABLET BY MOUTH ONCE DAILY levothyroxine 50 mcg tablet 50 mcg PO DAILY gabapentin 300 mg capsule 300 mg PO DAILY Dulera 50-5 mcg/actuation HFA aerosol inhaler 1 puff inhalation DAILY Rx Instructions: as directed sildenafil (pulm.hypertension) 20 mg tablet 20 mg PO DAILY PRN (Reason: sexual activity) Patient Comments: TAKE 1 TABLET ONE-HALF HOUR TO 1 (ONE) HOUR PRIOR TO SEXUAL INTERCOURSE. DO NOT EXCEED MORE THAN 2 (TWO) TABLETS IN A 24 HOUR PERIOD losartan 25 mg tablet 25 mg PO DAILY Qty: 90 3RF aspirin [Adult Aspirin Regimen] 81 mg tablet,delayed release (DR/EC) 81 mg PO DAILY Qty: 90 3RF albuterol sulfate 1 PUFF inhaler 2 puff INHALATION Q4H PRN PRN (Reason: Shortness Of Breath) escitalopram oxalate 10 MG tablet 10 mg PO DAILY metoprolol tartrate 25 mg tablet 12.5 mg PO BID Qty: 90 3RF ticagrelor 90 mg tablet 90 mg PO BID Qty: 180 3RF Referrals / Follow Up: Dary Alvarez MD [Primary Care Provider] - Within 1 Week Disposition Disposition (needs filled in before D/C Order can be placed): Home, Self Care Charges/Coding Visit Charges Inpatient E&M: 52625 Disch Hosp >30min
--- NOTE | 2023-08-18 15:07 | CASEMGMT ---
SW did not complete a PHQ9 as patient did not have a TIA or Stroke. Shy GOODWIN
== END 2023-08-18 15:03 | disposition home or self-care (01) ==
LOC: ED 08-18 01:03 → PCU 08-18 01:10
PROVIDERS: Admitting Provider Hospitalist; Emergency Provider Emergency Medicine; PCP Internal Medicine; Visit Provider Internal Medicine
DX: R42 Dizziness and giddiness (principal); N18.30 Chronic kidney disease, stage 3 unspecified; E78.5 Hyperlipidemia, unspecified; Z79.51 Long term (current) use of inhaled steroids; Z87.891 Personal history of nicotine dependence; Z95.5 Presence of coronary angioplasty implant and graft; I25.10 Atherosclerotic heart disease of native coronary artery without angina pectoris; Z79.02 Long term (current) use of antithrombotics/antiplatelets; E03.9 Hypothyroidism, unspecified; I12.9 Hypertensive chronic kidney disease with stage 1 through stage 4 chronic kidney disease, or unspecified chronic kidney disease; R47.01 Aphasia; Z79.899 Other long term (current) drug therapy; Z79.890 Hormone replacement therapy; I25.2 Old myocardial infarction; J45.909 Unspecified asthma, uncomplicated; Z79.82 Long term (current) use of aspirin; I44.0 Atrioventricular block, first degree; I07.1 Rheumatic tricuspid insufficiency; R77.8 Other specified abnormalities of plasma proteins
CPT/HCPCS: 36415; 70450; 70496; 70498; 70551; 71045; 80048; 80061; 82962; 83036; 84484; 85025; 85610; 85730; 92610; 93005; 93306; 94762; 96361; 96374; 97161; 97166; 99221; 99252; 99285; J7030; Q9967; A4216; G0378; G0463; J2405

== ENCOUNTER 2024-06-28 18:47 | Emergency (ER) | payer MEDICARE, SELFPAY ==
[2019-06-19 08:23] VITALS: BMI 22.4
[2024-06-28 18:47] VITALS: BP 155/97; PULSE 70; RESP 16; TEMP 35.5; O2SAT 100
[2024-06-28 18:55] VITALS: BMI 23.8
--- NOTE | 2024-06-28 20:03 | EDS_ITS ---
HPI History of Present Illness Chief Complaint: Bite Informant: patient Onset/Context/Timing Onset: Days (2) Context: Sudden Onset Timing: Continuous Quality: Questionable bite Location: Left forearm Worsened by: Nothing Relieved by: Nothing Narrative Narrative: Patient presents with questionable bat bite. Patient states he woke up and there was a bat in his bedroom 2 days ago. Patient is unsure if he got bit on his left forearm. Patient states he underwent rabies vaccine approximately 4 years ago. Patient states he received rabies immunoglobulin at that time as well. Patient states he was able to capture the bat and took it to the health department yesterday. Patient denies any chest pain or shortness of breath. Patient denies any paresthesias or weakness. Patient states he feels fine. [facility] Medical History Essential hypertension Atherosclerosis of coronary artery without angina pectoris Chronic renal failure, stage 3 (moderate) Family history of ASCVD Former smoker, stopped smoking in distant past HLD (hyperlipidemia) Asthma Acute ST elevation myocardial infarction (STEMI) of posterior wall Home Medications ?Medication ?Instructions ?Recorded ?Last Taken ?Type albuterol sulfate 90 mcg/actuation 2 puff inhalation Q4H PRN PRN 06/18/19 Unknown History aerosol inhaler Shortness Of Breath escitalopram oxalate 10 mg tablet 10 mg PO DAILY Depression 06/18/19 07/17/19 History ezetimibe 10 mg tablet 10 mg PO QHS #90 tabs 03/01/20 Unknown Rx nitroglycerin 0.4 mg sublingual 0.4 mg sublingual Q5M PRN chest 12/17/20 Unknown Rx tablet pain #25 tabs metoprolol tartrate 25 mg tablet 12.5 mg (1/2 x 25 mg) PO BID #90 03/07/21 02/18/23 Rx tabs ticagrelor 90 mg tablet 90 mg PO BID #180 tabs 04/02/21 02/18/23 Rx amlodipine 5 mg tablet 5 mg PO DAILY 02/12/23 Unknown History aspirin 81 mg tablet,delayed 81 mg PO DAILY #90 tabs 02/12/23 02/18/23 Rx release (Adult Aspirin Regimen) gabapentin 300 mg capsule 300 mg PO DAILY 02/12/23 Unknown History levothyroxine 50 mcg tablet 50 mcg PO DAILY 02/12/23 Unknown History losartan 25 mg tablet 25 mg PO DAILY #90 tabs 02/12/23 02/18/23 Rx mometasone-formoterol HFA 50 mcg-5 1 puff inhalation DAILY 02/12/23 Unknown History mcg/actuation aerosol inhaler (Dulera) sildenafil (pulm.hypertension) 20 20 mg PO DAILY PRN sexual activity 02/12/23 Unknown History mg tablet Allergy/AdvReac Type Severity Reaction Status Date / Time ibuprofen Allergy Severe Anaphylaxis Verified 06/28/24 18:47 Sulfa (Sulfonamide Allergy Rash Verified 06/28/24 18:47 Antibiotics) [id number] Reductase AdvReac Severe severe Verified 06/28/24 18:47 Inhibitor myalgias with multiple statins lisinopril AdvReac Intermediate cough Verified 06/28/24 18:47 Family History Mother Thyroid disorder Father Heart disease Thyroid disorder Surgical History History of percutaneous transluminal coronary angioplasty (~02/18/23) Stented coronary artery (07/17/19) Social History Smoking Status: Former smoker ROS ROS ED Constitutional Constitutional ED: Denies chills or fever(s) Eyes Eyes: Denies blurry vision or change in vision ENT ENT ED: Denies rhinorrhea or sore throat Cardiovascular Cardiovascular: Denies chest pain or palpitations Respiratory/Chest Respiratory/Chest: Denies cough or dyspnea Gastrointestinal Gastrointestinal: Denies nausea or vomiting Genitourinary Genitourinary ED: Denies dysuria or hematuria Musculoskeletal Musculoskeletal: Denies back pain or neck pain Integumentary Denies abscess or rash Neurologic Neurologic: Denies headache(s) or weakness Allergic/Immunologic Allergic/Immunologic ED: Denies mouth swelling or urticaria EXAM Physical Exam Const Vital Signs: 06/28/24 18:47 Temperature 96 F L Temperature Source Temporal Pulse Rate 70 Respiratory Rate 16 Blood Pressure 155/97 H Blood Pressure Mean 116 Pulse Ox 100 Oxygen Delivery Method Room Air Positive well nourished and well developed General Appearance ED: well developed and NAD HEENT Reports moist mucous membranes Neck supple and no JVD Resp normal respiratory effort and clear to auscultation bilaterally Cardio regular rate and regular rhythm GI non-tender and non-distended Palpation: soft Extremity Extremity Narrative: There is some mild ecchymosis over the volar aspect of the left forearm. There is no definite puncture wound. There is no bleeding noted. There is no erythema or warmth noted. There is full range of motion. Radial pulses are equal bilaterally. Sensation was intact to light touch in the radial, median, and ulnar areas. Strength is 5/5 in the radial, median, and ulnar areas. Neuro oriented x3, CN's II-XII intact bilaterally and no sensory deficits noted Sensorium / Orientation: alert Motor Exam: strength 5/5 throughout Psych mental status grossly normal MDM MDM MDM Narrative Medical decision making narrative: Since the patient was previously vaccinated with rabies vaccine and rabies immunoglobulin, patient does not require repeat rabies immunoglobulin. Patient was given a dose of rabies vaccine here. Patient was instructed to return in 3 days for a second rabies vaccine. Patient was advised that this is all he would need to do. Patient was instructed to follow-up with his primary care physician in 5 to 7 days. Patient was instructed to follow-up with the health department in 5 to 7 days. Patient understood and was agreeable with the plan. All questions were answered. Discharge Plan Triage Chief Complaint: Bite ED Provider: Camron Russ Dx/Rx/DC Orders Clinical Impression: Exposure to bat without known bite, Former smoker, stopped smoking in distant past, Essential hypertension Instructions: Understanding Rabies, ED Animal Bite (General) Prescriptions: No Action ezetimibe 10 mg tablet 10 mg PO QHS Qty: 90 3RF nitroglycerin 0.4 mg tablet, sublingual 0.4 mg SUBLINGUAL Q5M PRN (Reason: chest pain) Qty: 25 3RF Rx Instructions: do not exceed 3 doses per episode amlodipine 5 mg tablet 5 mg PO DAILY Patient Comments: TAKE 1 TABLET BY MOUTH ONCE DAILY levothyroxine 50 mcg tablet 50 mcg PO DAILY gabapentin 300 mg capsule 300 mg PO DAILY Dulera 50-5 mcg/actuation HFA aerosol inhaler 1 puff inhalation DAILY Rx Instructions: as directed sildenafil (pulm.hypertension) 20 mg tablet 20 mg PO DAILY PRN (Reason: sexual activity) Patient Comments: TAKE 1 TABLET ONE-HALF HOUR TO 1 (ONE) HOUR PRIOR TO SEXUAL INTERCOURSE. DO NOT EXCEED MORE THAN 2 (TWO) TABLETS IN A 24 HOUR PERIOD losartan 25 mg tablet 25 mg PO DAILY Qty: 90 3RF aspirin [Adult Aspirin Regimen] 81 mg tablet,delayed release (DR/EC) 81 mg PO DAILY Qty: 90 3RF albuterol sulfate 1 PUFF inhaler 2 puff INHALATION Q4H PRN PRN (Reason: Shortness Of Breath) escitalopram oxalate 10 MG tablet 10 mg PO DAILY metoprolol tartrate 25 mg tablet 12.5 mg PO BID Qty: 90 3RF ticagrelor 90 mg tablet 90 mg PO BID Qty: 180 3RF Primary Care Provider: Dary Alvarez Referrals: Dary Alvarez MD [Primary Care Provider] - Activity Restrictions/Additional Instructions: Return in 3 days for repeat rabies vaccine Print Language: Greenlandic Disposition Disposition: Home, Self Care
[2024-06-28] MEDS: Rabies Vaccine,Human Diploid 2.5 UNITS Vial IM (20:16)
[2024-06-28 20:41] VITALS: BP 148/91; PULSE 70; RESP 16; TEMP 35.5; O2SAT 100
== END 2024-06-28 20:42 | disposition home or self-care (01) ==
PROVIDERS: Emergency Provider Emergency Medicine; PCP Internal Medicine; Visit Provider Emergency Medicine
DX: Z20.3 Contact with and (suspected) exposure to rabies (principal); N18.30 Chronic kidney disease, stage 3 unspecified; I25.10 Atherosclerotic heart disease of native coronary artery without angina pectoris; I12.9 Hypertensive chronic kidney disease with stage 1 through stage 4 chronic kidney disease, or unspecified chronic kidney disease; Z87.891 Personal history of nicotine dependence; E78.5 Hyperlipidemia, unspecified; J45.909 Unspecified asthma, uncomplicated; Z23 Encounter for immunization
CPT/HCPCS: 90471; 90675; 99282

== ENCOUNTER 2024-07-01 09:01 | Outpatient (CLI) | payer MEDICARE, SELFPAY ==
[2019-06-19 08:23] VITALS: BMI 22.4
[2024-07-01 09:01] VITALS: BP 176/108; PULSE 85; RESP 18; TEMP 35.8; O2SAT 96; BMI 23.1
[2024-07-01] MEDS: Rabies Vaccine,Human Diploid 2.5 UNITS Vial IM (09:24)
[2024-07-01 09:44] VITALS: BP 176/108; PULSE 85; RESP 18; TEMP 35.8; O2SAT 96; BMI 23.1
== END 2024-07-01 09:58 | disposition home or self-care (01) ==
PROVIDERS: PCP Internal Medicine; Visit Provider Emergency Medicine
DX: Z23 Encounter for immunization (principal)
CPT/HCPCS: 90675; 96372